=== PATIENT | female | born 1960 | race Caucasian/White ===

== ENCOUNTER 2017-04-22 12:05 | Emergency (ER) | payer MEDICAID, SELFPAY ==
[2017-04-22 15:08] VITALS: BMI 31.1
[2017-04-22 15:10] VITALS: BP 135/87; PULSE 113; RESP 20; TEMP 37.2; O2SAT 99
--- NOTE | 2017-04-22 15:18 | XR_ITS ---
XR chest 2V PA lateral chest Ordering Physician: Gasper Zhang MD Patient Age: 56 years: Female HISTORY: ITS.REASON: prod cough x4 days TECHNIQUE: PA and lateral chest radiograph COMPARISON : 01/16/[address] Ramsey on the afternoon hand years here No prominent findings. Minor observations At right chest I suspect there is a small wispy area of atelectasis and possible minor infiltrate seen but is seen just lateral to the right infrahilar area & projected over the anterior fourth rib.. Is a minor change since prior study... I cannot attribute to costochondral calcification since the ribs are not calcified. Suspect it does reflect a minor patchy area of infiltrate at the right middle lobe region. Clinical correlation required.. Heart is normal in size demetrius and mediastinal structures otherwise unremarkable. IMPRESSION : Suspect small patchy infiltrate extending laterally from the right infrahilar region. Likely minor RML infiltrate..
[2017-04-22 15:41] LABS: Strep Scrn Group A (Rapid) Negative (Negative)
[2017-04-22 16:42] VITALS: BP 150/100; PULSE 106; RESP 20; TEMP 37; O2SAT 98; BMI 31.1
--- NOTE | 2017-04-22 18:12 | [facility]H.EDGENADL ---
ED Disposition Clinical Impression: Upper respiratory infection Disposition: Home, Self-Care Condition on Discharge: Good Prescriptions: Azithromycin [Z-Lenin 250mg Tab] 250 mg PO UD DOSE PK #6 tab Benzonatate [Tessalon Perle 100mg Cap] 100 mg PO TID PRN #14 cap PRN Reason: Cough Referrals: Nathanael Dc MD [Primary Care Provider] - - Critical Care Critical Care Time: No Attestation: On 04/22/17, the high probability of a clinically significant, sudden or life threatening deterioration of the following system(s) required my full and direct attention, intervention and personal management. The time I documented below is in addition to time spent performing reported procedures but includes the following listed in this critical care notation. Medical Decision Making Vital Signs: 04/22/17 15:10 04/22/17 16:42 Temperature 99 F 98.6 F Temperature Source Oral Oral Pulse Rate [Left Radial] 113 H 106 H Respiratory Rate 20 20 Blood Pressure [Left Arm] 135/87 150/100 Blood Pressure Mean [Left Arm] 103 116 Blood Pressure Source [Left Arm] Automatic Cuff Automatic Cuff Blood Pressure Position [Left Arm] Sitting Supine 02 Sat by Pulse Oximetry 99 98 Oxygen Delivery Method Room Air Room Air Orders (Tests/Meds): ORDERS Category Date Time Status Chest XR 2 view (NOT portable) [XR chest 2V] Stat Exams 04/22/17 15:18 Taken Strep Screen Confirmation Stat Micro 04/22/17 15:15 Received - Perry Inquiry Pt receiving controlled substance: No General Adult HPI - General Chief complaint: Upper Respiratory Infection Stated complaint: Cough Congestion Mode of Arrival: Ambulatory Source of Information: Patient Limitations: No Limitations Description of Symptoms (Recalled from ER Triage Doc. by RN): cough, congestion, headache, burning in nose - History of Present Illness Onset (ago): day(s) (2) Location: face, chest Radiation: non-radiation Severity: moderate - Related Data Home Medications Medication Instructions Recorded Confirmed Levothyroxine Sodium [Synthroid 25 mcg PO DAILY 04/22/17 04/22/17 25mcg (0.025mg) tablet] Lisinopril [Zestril 5mg 5 mg PO DAILY 04/22/17 04/22/17 Tablet] Previous Rx's Medication Instructions Recorded Azithromycin [Z-Lenin 250mg Tab] 250 mg PO UD DOSE PK #6 tab 04/22/17 Benzonatate [Tessalon Perle 100mg 100 mg PO TID PRN #14 cap 04/22/17 Cap] Allergies Allergy/AdvReac Type Severity Reaction Status Date / Time codeine Allergy Intermediate I-RASH; Verified 04/22/17 16:53 NAUSEA/VOMITING chocolate flavor AdvReac Mild NA-NAUSEA/V Verified 04/22/17 16:53 [From CHOCOLATE (FOOD/DRUG)] OMITING From CHOCOLATE (FOOD/DRUG) AdvReac Mild NA-NAUSEA/V Uncoded 04/09/17 14:26 OMITING [facility] History Medical History: Denies:: Cancer, Diabetes Mellitus Type 1, Diabetes Mellitus Type 2, MRSA Other Surgeries: No: Pacemaker Amputation: No - *Social History Educational Level: Completed High School Smoking Status: Never smoker Alcohol Intake: never - Psychiatric History Expresses thoughts of harming self/others: None Suicide Plan Description: No Plan ROS Obtained: Yes All systems reviewed & no additional complaints except - ENT Reports nasal congestion, Reports nasal discharge - Respiratory Reports chest congestion, Reports cough Physical Exam - General General appearance: alert, in no apparent distress - Head Head exam: atraumatic, normocephalic, normal inspection - Eye Eye exam: Present: normal appearance, PERRL, EOMI - ENT ENT exam: Present: normal exam, normal oropharynx, mucous membranes moist, TM's normal bilaterally, normal external ear exam, other (boggy nasal mucosa without obstruction) - Neck Neck exam: Present: normal inspection, full ROM, trachea midline - Chest Chest inspection: Present: normal inspection, symmetric chest wall rise. Absent: tenderness - Respiratory Respiratory exam: Present: normal josé
--- NOTE | 2017-04-22 18:16 | ED_ITS ---
ED Disposition Clinical Impression: Upper respiratory infection Disposition: Home, Self-Care Condition on Discharge: Good Prescriptions: Azithromycin [Z-Lenin 250mg Tab] 250 mg PO UD DOSE PK #6 tab Benzonatate [Tessalon Perle 100mg Cap] 100 mg PO TID PRN #14 cap PRN Reason: Cough Referrals: Nathanael Dc MD [Primary Care Provider] - - Critical Care Critical Care Time: No Attestation: On 04/22/17, the high probability of a clinically significant, sudden or life threatening deterioration of the following system(s) required my full and direct attention, intervention and personal management. The time I documented below is in addition to time spent performing reported procedures but includes the following listed in this critical care notation. Medical Decision Making Vital Signs: 04/22/17 15:10 04/22/17 16:42 Temperature 99 F 98.6 F Temperature Source Oral Oral Pulse Rate [Left Radial] 113 H 106 H Respiratory Rate 20 20 Blood Pressure [Left Arm] 135/87 150/100 Blood Pressure Mean [Left Arm] 103 116 Blood Pressure Source [Left Arm] Automatic Cuff Automatic Cuff Blood Pressure Position [Left Arm] Sitting Supine 02 Sat by Pulse Oximetry 99 98 Oxygen Delivery Method Room Air Room Air Orders (Tests/Meds): ORDERS Category Date Time Status Chest XR 2 view (NOT portable) [XR chest 2V] Stat Exams 04/22/17 15:18 Taken Strep Screen Confirmation Stat Micro 04/22/17 15:15 Received - Perry Inquiry Pt receiving controlled substance: No General Adult HPI - General Chief complaint: Upper Respiratory Infection Stated complaint: Cough Congestion Mode of Arrival: Ambulatory Source of Information: Patient Limitations: No Limitations Description of Symptoms (Recalled from ER Triage Doc. by RN): cough, congestion , headache, burning in nose - History of Present Illness Onset (ago): day(s) (2) Location: face, chest Radiation: non-radiation Severity: moderate - Related Data Home Medications Medication Instructions Recorded Confirmed Levothyroxine Sodium [Synthroid 25 mcg PO DAILY 04/22/17 04/22/17 25mcg (0.025mg) tablet] Lisinopril [Zestril 5mg 5 mg PO DAILY 04/22/17 04/22/17 Tablet] Previous Rx's Medication Instructions Recorded Azithromycin [Z-Lenin 250mg Tab] 250 mg PO UD DOSE PK #6 tab 04/22/17 Benzonatate [Tessalon Perle 100mg 100 mg PO TID PRN #14 cap 04/22/17 Cap] Allergies Allergy/AdvReac Type Severity Reaction Status Date / Time codeine Allergy Intermediate I-RASH; Verified 04/22/17 16:53 NAUSEA/VOMITING chocolate flavor AdvReac Mild NA-NAUSEA/V Verified 04/22/17 16:53 [From CHOCOLATE (FOOD/DRUG)] OMITING From CHOCOLATE (FOOD/DRUG) AdvReac Mild NA-NAUSEA/V Uncoded 04/09/17 14:26 OMITING [facility] History Medical History: Denies:: Cancer, Diabetes Mellitus Type 1, Diabetes Mellitus Type 2, MRSA Other Surgeries: No: Pacemaker Amputation: No - *Social History Educational Level: Completed High School Smoking Status: Never smoker Alcohol Intake: never - Psychiatric History Expresses thoughts of harming self/others: None Suicide Plan Description: No Plan ROS Obtained: Yes All systems reviewed & no additional complaints except
[2017-04-22 18:26] VITALS: PULSE 100; RESP 20; TEMP 37; O2SAT 100
== END 2017-04-22 18:28 | disposition home or self-care (01) ==
PROVIDERS: Emergency Provider Family Medicine; Family Provider Family Medicine; PCP Family Medicine
DX: J06.9 Acute upper respiratory infection, unspecified; I10 Essential (primary) hypertension; Z88.6 Allergy status to analgesic agent
CPT/HCPCS: 71046; 87275; 87276; 87430; 99284

== ENCOUNTER → 2017-07-03 13:52 | Outpatient (CLI) | payer MEDICAID, SELFPAY ==
--- NOTE | 2017-07-03 13:54 | US_ITS ---
US thyroid HISTORY: ITS.REASON: ACQUIRED HYPOTHYROIDISM ORDERING PHYSICIAN: Letitia Dc MD PATIENT AGE: 56 years COMPARISON: 03/18/2012 FINDINGS: The right lobe is small 2 x 0.6 x 0.6 cm. There is a 7 mm hypoechoic nodule within the isthmus. The left lobe is 4.3 x 1.3 x 0.8 cm. There is a 3 mm hypoechoic nodule in the lower pole and an additional 4 mm hypoechoic nodule in the lower pole consistent with small cysts. IMPRESSION: 7 mm hypoechoic nodule in the isthmus unchanged with small right lobe of the thyroid gland. 2 small cystic lesions lower pole on the left.
== END ==
PROVIDERS: Family Provider Family Medicine; PCP Family Medicine; Visit Provider Family Medicine
DX: E03.9 Hypothyroidism, unspecified (principal)
CPT/HCPCS: 76536

== ENCOUNTER → 2017-11-04 09:03 | Outpatient (CLI) | payer MEDICAID, SELFPAY ==
--- NOTE | 2017-11-04 09:13 | MM_ITS ---
MM Dig screening mamm BI w/CAD CAD Screening COMPARISON: Digital mammograms with CAD 05/08/2012 and analog mammograms 02/16/2004 Indication: There is a history of breast cancer patient's maternal grandmother Fndings:: The breasts are composed primarily of fat with minimal scattered fiber glandular densities in each breast. There is no suspicious lesion in either breast and there are no suspicious microcalcifications. TECHNIQUE: Standard CC and MLO images were obtained. R2 CAD reviewed. IMPRESSION: Fatty type breast parenchyma with no suspicious lesion seen BI-RADS Category: 1 Negative RECOMMENDED FOLLOW-UP: 1YR - 1 YEAR FOLLOW-UP (A letter has been sent to the patient regarding results of the study.)
== END ==
PROVIDERS: Family Provider Family Medicine; PCP Family Medicine; Visit Provider Family Medicine
DX: Z12.31 Encounter for screening mammogram for malignant neoplasm of breast (principal)
CPT/HCPCS: 77067

== ENCOUNTER → 2020-06-01 08:05 | Outpatient (CLI) | payer OTHER, SELFPAY ==
--- NOTE | 2020-06-01 08:10 | MM_ITS ---
PROCEDURE: MM DIG SCREENING MAMM BI W/CAD Referring Doctor: Letitia Dc Patient Age:59Y CLINICAL INDICATION: SCREENING 59-year-old. No hormones. No new complaints. 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 R2 CAD reviewed. Bilateral digital breast tomosynthesis included. FINDINGS: Low-density breast pattern seen here provide for more optimal screening mammography Moderate generalized fatty replacement-with only minimal residual fibroglandular elements most evident towards lateral breast and upper outer quadrant No new dominant or suspicious mass. No suspicious calcifications. No significant appearing new findings Right breast-no new areas of concern stable right mammogram Left breast.- no new areas of significant concern. Very small nodular density with which appears to be central lucency far lateral left breast I believe was seen on previous studies and most compatible with benign intramammary lymph node. It was seen on previous MLO exams. Follow-up 1 year would be adequate . Bilateral follow-up 1 year be adequate but would be encouraged IMPRESSION: Stable mammogram with no new areas of significant concern. Bilateral follow-up 1 year recommended and encouraged BI-RAD Category: 2 Benign Finding(s) FOLLOW-UP: 1YR 1 Year Follow-up (A letter has been sent to the patient regarding results of the study.) Dictated by: Carlos Ramsey MD 06/07/2020 09:40 Carlos Ramsey MD in [place] 06/07/2020 09:40
--- NOTE | 2020-06-01 08:50 | XR_ITS ---
PROCEDURE: XR DEXA AXIAL SKELETON CLINICAL HISTORY: OSTEOPENIA COMPARISON: No exams were available for comparison FINDINGS: The right hip BMD is 0.599 with a T-score of -2.3. The left hip BMD is 0.611 with a T-score of -2.1. The lumbar spine BMD is 0.780 with a T-score of -2.4. IMPRESSION: This patient is considered osteopenic according to the World Health Organization criteria. Bone density is between 10 and 25 percent below young normal. Fracture risk is moderate. Treatment is advised. Based on these results a follow-up exam is recommended in 2 year. Dictated by: Jayden Sheridan MD 06/01/2020 18:31 Jayden Sheridan MD in [facility] 06/01/2020 20:09
== END ==
PROVIDERS: PCP Family Medicine; Visit Provider Family Medicine
DX: Z12.31 Encounter for screening mammogram for malignant neoplasm of breast (principal); M85.89 Other specified disorders of bone density and structure, multiple sites
CPT/HCPCS: 77063; 77067; 77080

== ENCOUNTER → 2020-06-22 15:00 | Outpatient (CLI) | payer OTHER, SELFPAY ==
--- NOTE | 2020-06-22 15:12 | XR_ITS ---
PROCEDURE: XR FOOT RT MIN 3V CLINICAL INDICATION: RT HEEL PAIN COMPARISON: CR [id number] XR foot LT min 3V from 11/07/2017 CR [id number] XR foot LT min 3V from 09/06/2018 FINDINGS: No fracture or dislocation. No lytic or blastic change. There is normal mineralization. The joint spaces are well-preserved. No significant degenerative/arthritic changes. No erosive changes evident. Other findings:Cortical thickening involves the medial aspect of the distal phalanx of the great toe. There is a small calcaneal spur. There is some mild soft tissue thickening at the plantar surface of the foot at the calcaneal area. No radiopaque foreign body. IMPRESSION: Soft tissue thickening along the plantar aspect of the calcaneus Cortical thickening involves the medial aspect of the distal phalanx of the great toe Otherwise negative Dictated by: Jayden Sheridan MD 06/22/2020 16:23 Jayden Sheridan MD in [facility] 06/22/2020 16:23
== END ==
PROVIDERS: PCP Family Medicine; Visit Provider Family Medicine
DX: M79.671 Pain in right foot (principal)
CPT/HCPCS: 73630

== ENCOUNTER 2021-04-04 00:18 | Emergency (ER) | payer OTHER, SELFPAY ==
[2021-04-04 00:19] VITALS: BP 149/89; PULSE 74; RESP 18; TEMP 36.6; O2SAT 96; BMI 30.9
--- NOTE | 2021-04-04 01:28 | CT_ITS ---
PROCEDURE INFORMATION: Exam: CT Abdomen And Pelvis With Contrast Exam date and time: 04/04/2021 1:28 AM Age: 60 years old Clinical indication: Nausea and vomiting; Additional info: N/v TECHNIQUE: Imaging protocol: Computed tomography of the abdomen and pelvis with contrast. Radiation optimization: All CT scans at this facility use at least one of these dose optimization techniques: automated exposure control; mA and/or kV adjustment per patient size (includes targeted exams where dose is matched to clinical indication); or iterative reconstruction. Contrast material: ISOVUE; Contrast volume: 75 ml; Contrast route: IV; COMPARISON: CT ABDOMEN PELVIS WO CON 05/05/2019 1:31 AM FINDINGS: Lungs: There are atelectatic changes noted at the lung bases. Liver: Diminished attenuation throughout the substance of the liver, suggesting hepatic steatosis. Borderline hepatomegaly. No evidence of mass. No intrahepatic biliary dilitation. Gallbladder and bile ducts: The gallbladder is surgically absent. No evidence of extrahepatic biliary dilatation. Pancreas: Normal. No ductal dilation. Spleen: Normal. No splenomegaly. Granulomatous calcification noted. Adrenal glands: Normal. No mass. Kidneys and ureters: Normal. No hydronephrosis. Stomach and bowel: Small hiatal hernia above the gastroesophageal junction. No obstruction. No mucosal thickening. Small bowel mesentery is normal. Appendix: The appendix is poorly visualized on this examination. There is no evidence of acute inflammatory process within the right lower quadrant. Intraperitoneal space: Unremarkable. No free air. No significant fluid collection. Vasculature: Unremarkable. No abdominal aortic aneurysm. There are calcified phleboliths within the pelvis. Lymph nodes: Unremarkable. No enlarged lymph nodes. Urinary bladder: Unremarkable as visualized. Reproductive: Hysterectomy has been performed. Bones/joints: Unremarkable. No acute fracture. Soft tissues: Unremarkable. IMPRESSION: No evidence of acute process within the abdomen or pelvis.
[2021-04-04 01:34] LABS: Basophils # 0.1 K/mm3 (0-0.2); Basophils % 0.4 % (0.1-2.0); Eosinophils # 0.1 K/mm3 (0.0-0.4); Eosinophils % 0.6 % (0.1-12.0); Hematocrit 47.6 % (37.0-47.0); Hemoglobin 16.4 g/dL (12.2-16.2); Lymphocytes # 1.7 K/mm3 (0.7-4.5); Lymphocytes % 11.4 % (10-50); Mean Corpuscular HGB Conc 34.6 g/dL (31.8-35.4); Mean Corpuscular Hemoglobin 31.6 pg (27.0-31.2); Mean Corpuscular Volume 91.5 fl (81-99); Mean Platelet Volume 9.4 fl (7.4-10.4); Monocytes # 0.7 K/mm3 (0.1-1.0); Monocytes % 4.6 % (1.7-9.3); Neutrophils # 12.3 K/mm3 (1.8-7.8); Platelet Count 186 K/mm3 (142-424); Red Cell Distribution Width 13.5 % (11.5-17.5); White Blood Count 14.8 K/mm3 (4.8-10.8)
[2021-04-04 01:39] LABS: Alanine Aminotransferase 69 U/L (12-78); Albumin Level 4.6 g/dl (3.5-5.0); Albumin/Globulin Ratio 1.6 (1.1-1.8); Alkaline Phosphatase 87 U/L (38-126); Amylase 102 U/L (30-110); Aspartate Amino Transferase 49 U/L (14-36); Bilirubin,Total 0.5 mg/dl (0.2-1.3); Blood Urea Nitrogen 12 mg/dl (7-17); Calcium 9.5 mg/dl (8.4-10.2); Carbon Dioxide 32 mmol/L (22.0-30.0); Chloride 100 mmol/L (98-107); Creatinine Clearance Estimated 132 mL/min (50-200); Estimated Glomerular Filt Rate 103 ml/min (>60); GFR (African American) 124 ML/MIN (>60); Globulin 2.9 g/dL (1.3-3.2); Glucose 160 mg/dl (74-100); Lipase 55 U/L (23-300); Sodium 139 mmol/L (136-145); Total Protein,Serum 7.5 g/dl (6.3-8.2)
[2021-04-04 01:45] LABS: C-Reactive Protein 5.7 mg/L (0-4)
[2021-04-04 01:58] LABS: Procalcitonin 0.061 ng/mL (0.0-2.0)
--- NOTE | 2021-04-04 02:21 | XR_ITS ---
PROCEDURE INFORMATION: Exam: XR Chest Exam date and time: 04/04/2021 2:21 AM Age: 60 years old Clinical indication: Other: N/v; Patient HX: No complaints of chest pain or SOA TECHNIQUE: Imaging protocol: XR of the chest. Views: 1 view. COMPARISON: CR CXR2V XR chest 2V 04/22/2017 3:29 PM FINDINGS: Lungs: Limited inspiration. Minimal atelectatic changes noted at the lung bases. Pleural spaces: Unremarkable. No pleural effusion. No pneumothorax. Heart/Mediastinum: Unremarkable. No cardiomegaly. Bones/joints: Unremarkable. IMPRESSION: Limited inspiration chest. Minimal atelectatic changes noted at the lung bases. No evidence of alveolar consolidation or congestive failure.
[2021-04-04 02:30] VITALS: BP 120/72; PULSE 78; RESP 14; O2SAT 97
[2021-04-04 02:35] LABS: Erythrocyte Sedimentation Rate 2 mm/hr (0-30)
--- NOTE | 2021-04-04 02:36 | HMH.EDNVD ---
ED Disposition Clinical Impression: Gastroenteritis Disposition: Home, Self-Care Condition on Discharge: Good Instructions: DI for Diarrhea and Traveler's Diarrhea -- Adult Additional Instructions: fluids and see pcp for follow up Prescriptions: ondansetron HCL [Zofran 4mg Tab] 4 mg PO TID #21 tab Transmission Status: Pending to [id number] Referrals: Letitia Dc MD [Primary Care Provider] - - Critical Care Critical Care Time: No Attestation: On 04/04/21, the high probability of a clinically significant, sudden or life threatening deterioration of the following system(s) required my full and direct attention, intervention and personal management. The time I documented below is in addition to time spent performing reported procedures but includes the following listed in this critical care notation. Medical Decision Making - Medical Records Medical records reviewed: Yes: I reviewed the patient's medical records. - Perry Inquiry Pt receiving controlled substance: No Vital Signs: 04/04/21 00:19 Temperature 97.9 F Temperature Source Oral Pulse Rate [Apical] 74 Respiratory Rate 18 Blood Pressure [Right Arm] 149/89 H Blood Pressure Mean [Right Arm] 109 Blood Pressure Source [Right Arm] Automatic Cuff Blood Pressure Position [Right Arm] Supine 02 Sat by Pulse Oximetry 96 Oxygen Delivery Method Room Air - Lab Data Lab results reviewed: Yes: I reviewed the patient's lab results. Lab Results 04/04/21 01:17: WBC 14.8 H, RBC 5.20, Hgb 16.4 H, Hct 47.6 H, MCV 91.5, MCH 31.6 H, MCHC 34.6, RDW 13.5, Plt Count 186, MPV 9.4, Neut % (Auto) 83.0 H, Lymph % (Auto) 11.4, Tucker % (Auto) 4.6, Eos % (Auto) 0.6, Baso % (Auto) 0.4, Neut # (Auto) 12.3 H, Lymph # (Auto) 1.7, Tucker # (Auto) 0.7, Eos # (Auto) 0.1, Baso # (Auto) 0.1 04/04/21 01:17: Sodium 139, Potassium 4.0, Chloride 100, Carbon Dioxide 32 H, Anion Gap 11.0, BUN 12, Creatinine 0.60, Estimated Creat Clear 132, Estimated GFR 103, Est GFR ( Amer) 124, Glucose 160 H, Calcium 9.5, Total Bilirubin 0.5, AST 49 H, ALT 69, Alkaline Phosphatase 87, C-Reactive Protein 5.7 H, Total Protein 7.5, Albumin 4.6, Globulin 2.9, Albumin/Globulin Ratio 1.6, Amylase 102, Lipase 55 04/04/21 01:17: ESR 2 04/04/21 01:17: Procalcitonin 0.061 04/04/21 02:35: Urine Color Yellow, Urine Appearance Clear, Urine pH 7.5, Ur Specific [place] 1.020, Urine Protein Negative, Urine Glucose (UA) Negative, Urine Ketones Trace, Urine Blood Negative, Urine Nitrate Negative, Urine Bilirubin Negative, Urine Urobilinogen 0.2, Ur Leukocyte Esterase Negative, Urine WBC Occasional, Ur Squamous Epith Cells Occasional, Urine Bacteria 1+ Result diagrams: 04/04/21 01:17 04/04/21 01:17 Orders (Tests/Meds): ED MEDICATIONS Generic Name Dose Route Start Last Admin Trade Name Frealeena PRN Reason Stop Dose Admin Sodium Chloride 1,000 mls @ 999 mls/hr 04/04/21 01:30 04/04/21 01:32 Sod Chlor 0.9% 1000ml Bag IV 04/04/21 02:30 999 mls/hr .Q1H1M SHA Administration Sodium Chloride 8 ml 04/04/21 01:30 Sodium Chloride 0.9% 10ml Vial IV 05/04/21 01:29 NEEDED PRN dilute pepcid Discontinued Medications Generic Name Dose Route Start Last Admin Trade Name Freq PRN Reason Stop Dose Admin Famotidine 20 mg 04/04/21 01:30 04/04/21 01:32 Famotidine 20mg/2ml Vial IV 04/04/21 01:31 20 mg ONCE ONE Administration Iopamidol 75 ml 04/04/21 02:24 04/04/21 02:26 Iopamidol-370 (76%);100ml Bottle IV 04/04/21 02:25 75 ml ONCE ONE Administration Ketorolac Tromethamine 30 mg 04/04/21 01:30 04/04/21 01:32 Ketorolac 30mg/Ml Vial IV 04/04/21 01:31 30 mg ONCE ONE Administration Metoclopramide HCl 10 mg 04/04/21 01:30 04/04/21 01:32 Metoclopramide Hcl 10mg/2ml Vial IVP 04/04/21 01:31 10 mg ONCE ONE Administration Ondansetron HCl 4 mg 04/04/21 01:30 04/04/21 01:33 Ondansetron 4mg/2ml Vial IV 04/04/21 01:31 4 mg ONCE ONE Administrati
[2021-04-04 02:41] LABS: Microscopic, Urine URINE MICROSCOPIC (MICROSCOPIC)
[2021-04-04 03:00] LABS: Appearance,Urine CLEAR (Clear); Bilirubin,Urine Negative (Negative); Blood, Urine Negative (Negative); Color,Urine YELLOW (Yellow); Glucose,Urine (UA) Negative (Negative); Ketones,Urine TRACE (Negative); Leukocyte Esterase,Urine Negative (Negative); Nitrate,Urine Negative (Negative); PH,Urine 7.5 (5.0-8.5); Protein,Urine Negative (Negative); Urobilinogen,Urine 0.2 EU/dl (0.2)
[2021-04-04 03:12] LABS: Bacteria,Urine 1+ /lpf; Squamous Epithelial Cell,Urine Occasional #/hpf (0-5); WBC,Urine Occasional #/hpf (0-3)
[2021-04-04 03:38] VITALS: BP 149/89; PULSE 74; RESP 18; TEMP 36.6; O2SAT 96
== END 2021-04-04 03:52 | disposition home or self-care (01) ==
PROVIDERS: Emergency Provider Emergency Medicine; PCP Family Medicine
DX: K52.9 Noninfective gastroenteritis and colitis, unspecified (principal)
CPT/HCPCS: 71045; 74177; 80053; 81001; 82150; 83690; 84145; 85025; 85651; 86140; 96365; 96367; 99284; J2405; Q9967

== ENCOUNTER → 2021-08-01 12:11 | Outpatient (CLI) | payer OTHER, SELFPAY ==
--- NOTE | 2021-08-01 12:20 | XR_ITS ---
FINAL REPORT CLINICAL HISTORY: LT RIB PAIN..no trauma FINDINGS: LEFT RIBS WITH CHEST A single view of the chest with 3 views of the left ribs were obtained. There is no acute cardiopulmonary process. No pneumothorax is identified. No rib fracture identified. IMPRESSION: No acute fracture. No pneumothorax. Reviewed, Interpreted and Dictated by Pete Dorman MD Transcribed by Princess Luo Authenticated by Pete Dorman MD on 08/01/2021 02:13:14 PM [facility]
== END ==
PROVIDERS: PCP Family Medicine; Visit Provider Family Medicine
DX: R07.81 Pleurodynia (principal)
CPT/HCPCS: 71101

== ENCOUNTER 2021-09-06 21:17 | Emergency (ER) | payer OTHER, SELFPAY ==
[2021-09-06 21:18] VITALS: BP 176/89; PULSE 78; RESP 18; TEMP 36.9; O2SAT 98; BMI 30.9
[2021-09-06 21:26] VITALS: BMI 30.9
--- NOTE | 2021-09-06 21:26 | ECG_ITS ---
APPROVED REPORT Exam: Resting ECG HR:64 bpm ECG Measurements Heart Rate 64 AXES PA 159 P 50 QRSd 94 QRS 30 QT 403 T 37 QTc 413 Conclusion SINUS RHYTHM Late R wave progression BORDERLINE ECG UNCONFIRMED REPORT Electronically signed by : Deandre Elliott MD 09/07/2021 08:43:04
--- NOTE | 2021-09-06 21:30 | XR_ITS ---
PROCEDURE INFORMATION: Exam: XR Chest Exam date and time: 09/06/2021 10:30 PM Age: 60 years old Clinical indication: Other: Dizziness; Additional info: Dizzy TECHNIQUE: Imaging protocol: XR of the chest. Views: 2 views. COMPARISON: CR XR RIBS LT MIN 3V W CXR1V 08/01/2021 12:35 PM FINDINGS: Lungs: No consolidation. Pleural spaces: No significant pleural effusion. No pneumothorax. Heart/Mediastinum: No cardiomegaly. Bones/joints: No displaced fracture. Soft tissues: Unremarkable. Intraperitoneal space: Surgical clips within RIGHT upper quadrant. IMPRESSION: No definite acute cardiopulmonary disease.
[2021-09-06 21:48] LABS: Microscopic, Urine URINE MICROSCOPIC (MICROSCOPIC)
[2021-09-06 21:56] LABS: Appearance,Urine CLEAR (Clear); Bilirubin,Urine Negative (Negative); Blood, Urine 2+ (Negative); Color,Urine YELLOW (Yellow); Glucose,Urine (UA) Negative (Negative); Ketones,Urine Negative (Negative); Leukocyte Esterase,Urine TRACE (Negative); Nitrate,Urine Negative (Negative); PH,Urine 6.5 (5.0-8.5); Protein,Urine Negative (Negative); Specific Gravity, Urine <= 1.005 (1.005-1.030); Urobilinogen,Urine 0.2 EU/dl (0.2)
[2021-09-06 22:08] LABS: Bacteria,Urine 1+ /lpf
[2021-09-06 22:40] LABS: Basophils # 0.2 K/mm3 (0-0.2); Basophils % 2.3 % (0.1-2.0); Eosinophils # 0.1 K/mm3 (0.0-0.4); Eosinophils % 1.6 % (0.1-12.0); Hematocrit 45.5 % (37.0-47.0); Hemoglobin 15.5 g/dL (12.2-16.2); Lymphocytes # 1.7 K/mm3 (0.7-4.5); Lymphocytes % 23.7 % (10-50); Mean Corpuscular HGB Conc 34.1 g/dL (31.8-35.4); Mean Corpuscular Hemoglobin 31.5 pg (27.0-31.2); Mean Corpuscular Volume 92.5 fl (81-99); Mean Platelet Volume 9.8 fl (7.4-10.4); Monocytes # 0.3 K/mm3 (0.1-1.0); Monocytes % 3.9 % (1.7-9.3); Neutrophils # 4.9 K/mm3 (1.8-7.8); Neutrophils % 68.5 % (37.0-80.0); Platelet Count 160 K/mm3 (142-424); Red Blood Count 4.92 M/mm3 (4.20-5.40); White Blood Count 7.1 K/mm3 (4.8-10.8)
[2021-09-06 23:00] LABS: Alanine Aminotransferase 51 U/L (12-78); Albumin Level 4.3 g/dl (3.5-5.0); Albumin/Globulin Ratio 1.6 (1.1-1.8); Alkaline Phosphatase 66 U/L (38-126); Anion Gap 9.7 mEq/L (5-15); Aspartate Amino Transferase 39 U/L (14-36); Bilirubin,Total 0.3 mg/dl (0.2-1.3); Blood Urea Nitrogen 16 mg/dl (7-17); Calcium 9.5 mg/dl (8.4-10.2); Carbon Dioxide 31 mmol/L (22.0-30.0); Chloride 104 mmol/L (98-107); Creatinine Clearance Estimated 113 mL/min (50-200); Estimated Glomerular Filt Rate 86 ml/min (>60); GFR (African American) 104 ML/MIN (>60); Globulin 2.7 g/dL (1.3-3.2); Glucose 155 mg/dl (74-100); Potassium 3.7 mmoL/L (3.5-5.1); Sodium 141 mmol/L (136-145)
[2021-09-06 23:05] LABS: C-Reactive Protein 10.4 mg/L (0-4); Erythrocyte Sedimentation Rate 6 mm/hr (0-30)
--- NOTE | 2021-09-06 23:05 | HMH.EDDIZZ ---
ED Disposition Clinical Impression: Burn due to hot object Benign paroxysmal positional vertigo Qualifiers: Laterality: unspecified laterality Qualified Code(s): H81.10 - Benign paroxysmal vertigo, unspecified ear Disposition: Home, Self-Care Condition on Discharge: Good Instructions: Dizziness, Nonvertigo, DI for [place] Additional Instructions: use meds and call pcp for follow up Prescriptions: Meclizine HCl [Antivert 25mg tablet] 25 mg PO TID #10 tab Transmission Status: Pending to [id number] Referrals: Letitia Dc MD [Primary Care Provider] - - Critical Care Critical Care Time: No Attestation: On 09/06/21, the high probability of a clinically significant, sudden or life threatening deterioration of the following system(s) required my full and direct attention, intervention and personal management. The time I documented below is in addition to time spent performing reported procedures but includes the following listed in this critical care notation. Medical Decision Making - Medical Records Medical records reviewed: Yes: I reviewed the patient's medical records. - Perry Inquiry Pt receiving controlled substance: No Vital Signs: 09/06/21 21:18 09/06/21 23:17 Temperature 98.4 F 98.4 F Temperature Source Oral Oral Pulse Rate 71 Pulse Rate [Right] 78 Respiratory Rate 18 18 Blood Pressure 144/74 H Blood Pressure [Right Arm] 176/89 H Blood Pressure Mean [Right Arm] 118 02 Sat by Pulse Oximetry 98 - Lab Data Lab results reviewed: Yes: I reviewed the patient's lab results. Lab Results 09/06/21 21:40: Urine Color Yellow, Urine Appearance Clear, Urine pH 6.5, Ur Specific [place] <= 1.005, Urine Protein Negative, Urine Glucose (UA) Negative, Urine Ketones Negative, Urine Blood 2+, Urine Nitrate Negative, Urine Bilirubin Negative, Urine Urobilinogen 0.2, Ur Leukocyte Esterase Trace, Urine RBC 5-10, Urine WBC 5-10, Ur Squamous Epith Cells 3-5, Urine Bacteria 1+ 09/06/21 22:32: WBC 7.1, RBC 4.92, Hgb 15.5, Hct 45.5, MCV 92.5, MCH 31.5 H, MCHC 34.1, RDW 14.0, Plt Count 160, MPV 9.8, Neut % (Auto) 68.5, Lymph % (Auto) 23.7, Cecil % (Auto) 3.9, Eos % (Auto) 1.6, Baso % (Auto) 2.3 H, Neut # (Auto) 4.9, Lymph # (Auto) 1.7, Cecil # (Auto) 0.3, Eos # (Auto) 0.1, Baso # (Auto) 0.2, ESR 6 09/06/21 22:32: Sodium 141, Potassium 3.7, Chloride 104, Carbon Dioxide 31 H, Anion Gap 9.7, BUN 16, Creatinine 0.70, Estimated Creat Clear 113, Estimated GFR 86, Est GFR ( Amer) 104, Glucose 155 H, Calcium 9.5, Total Bilirubin 0.3, AST 39 H, ALT 51, Alkaline Phosphatase 66, Troponin I < 0.01, C-Reactive Protein 10.4 H, Total Protein 7.0, Albumin 4.3, Globulin 2.7, Albumin/Globulin Ratio 1.6, Procalcitonin 0.073 Result diagrams: 09/06/21 22:32 09/06/21 22:32 Orders (Tests/Meds): ED MEDICATIONS Generic Name Dose Route Start Last Admin Trade Name Freq PRN Reason Stop Dose Admin Sodium Chloride 1,000 mls @ 999 mls/hr 09/06/21 21:45 09/06/21 22:02 Sod Chlor 0.9% 1000ml Bag IV 09/06/21 22:45 999 mls/hr .Q1H1M SHA Administration Discontinued Medications Generic Name Dose Route Start Last Admin Trade Name Freq PRN Reason Stop Dose Admin Meclizine HCl 25 mg 09/06/21 23:14 09/06/21 23:19 Meclizine 25mg Tablet PO 09/06/21 23:15 25 mg ONCE ONE Administration Methylprednisolone Sodium Succinate 125 mg 09/06/21 23:14 09/06/21 23:19 Methylprednisolone Sod Succ 125mg Vial IV 09/06/21 23:15 125 mg ONCE ONE Administration Silver Sulfadiazine 1 gm 09/06/21 23:14 09/06/21 23:18 Silver Sulfadiazine Cream 400gm TP 09/06/21 23:15 1 gm ONCE ONE Administration ORDERS Category Date Time Status Chest XR 2 view (NOT portable) [XR chest 2V] Stat Exams 09/06/21 21:30 Taken Troponin I Q3H Lab 09/07/21 00:45 Ordered Troponin I Q3H Lab 09/07/21 03:45 Ordered Urine Culture Stat Micro 09/06/21 21:40 Received - Radiology Data #1 Image(s): Chest Image
[2021-09-06 23:17] VITALS: BP 144/74; PULSE 71; RESP 18; TEMP 36.9; O2SAT 98
[2021-09-06 23:17] LABS: Troponin I < 0.01 ng/ml (0.00-0.034)
[2021-09-06 23:19] LABS: Procalcitonin 0.073 ng/mL (0.0-2.0)
== END 2021-09-06 23:37 | disposition home or self-care (01) ==
PROVIDERS: Emergency Provider Emergency Medicine; PCP Family Medicine
DX: T22.211A Burn of second degree of right forearm, initial encounter (principal); X08.8XXA Exposure to other specified smoke, fire and flames, initial encounter; Y92.019 Unspecified place in single-family (private) house as the place of occurrence of the external cause
CPT/HCPCS: 71046; 80053; 81001; 84145; 84484; 85025; 85651; 86140; 87086; 93005; 96360; 96375; 99284

== ENCOUNTER 2021-11-07 19:45 | Emergency (ER) | payer OTHER, SELFPAY ==
[2021-11-07 19:55] VITALS: BP 158/91; PULSE 87; RESP 19; TEMP 37; O2SAT 96; BMI 32.9
--- NOTE | 2021-11-07 20:08 | HMH.EDUTC ---
[facility] Disposition Clinical Impression: Cellulitis Qualifiers: Site of cellulitis: unspecified site Qualified Code(s): L03.90 - Cellulitis, unspecified Disposition: Home, Self-Care Condition on Discharge: Good Instructions: Cellulitis, Cephalexin, Mupirocin Additional Instructions: *Start antibiotic(s) immediately and be sure to take as ordered for the FULL length of time although you may be feeling better or start to see improvement in the next 24-48 hours *Monitor closely. Outlined redness so that you can monitor easier. Follow up immediately for new or worsening symptoms including but not limited to redness, swelling, streaking from site fever or chills. *Warm compress 15 minutes 3-4 times day Apply Mupirocin directly to the bites *Never squeeze or pop these on your own. Seek immediate medical attention next time this occurs *Monitor Temp. Tylenol every 4 hours as needed and ibuprofen every 6 hours as needed (as long as your primary care doctor has told you that it is ok to take both. For fever, aches, pain. ER if no less that 101 despite Tylenol and ibuprofen Make sure to Follow up with your family doctor/primary care physician in the next 48-72 hours if no improvement and immediately if any worsening of symptoms Straight to ER if any life threatening symptoms Prescriptions: cephALEXin [Cephalexin 500mg Tab] 500 mg PO Q6H 7 Days #28 tab Transmission Status: [facility] to [id number] Mupirocin Calcium [Mupirocin 2% Cream 15gm] 1 applicatio TP TID 10 Days #15 gm Transmission [facility]: [id number] Referrals: Letitia Dc MD [Primary Care Provider] - Time of Disposition: 20:19 Medical Decision Making - Perry Inquiry Pt receiving controlled substance: No Perry was queried for this patient: No Vital Signs: 11/07/21 19:55 Temperature 98.6 F Temperature Source Oral Pulse Rate [Left Brachial] 87 Respiratory Rate 19 Blood Pressure [Left Arm] 158/91 H Blood Pressure Mean [Left Arm] 113 Blood Pressure Source [Left Arm] Automatic Cuff Blood Pressure Position [Left Arm] Sitting 02 Sat by Pulse Oximetry 96 Oxygen Delivery Method Room Air Orders (Tests/Meds): ED MEDICATIONS Discontinued Medications Generic Name Dose Route Start Last Admin Trade Name Freq PRN Reason Stop Dose Admin Cephalexin HCl 500 mg 11/07/21 20:17 Cephalexin 500mg Capsule PO 11/07/21 20:18 ONCE ONE [facility] HPI - General Stated complaint: possible UTC Time Seen by Provider: 11/07/21 20:00 Mode of Arrival: Ambulatory Source of Information: Patient, Spouse Limitations: No Limitations Description of Symptoms (Recalled from Triage Doc. 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 States that she was worried it was getting infected when it looked red and the redness was starting to spread - Related Data Home Medications Medication Instructions Recorded Confirmed lisinopriL [Zestril 5mg 5 mg PO DAILY 04/22/17 09/06/21 Tablet] Pravastatin Sodium [Pravachol] 20 mg PO HS 11/07/17 09/06/21 Omeprazole [Omeprazole 40mg 40 mg PO DAILY 09/06/18 09/06/21 Capsule] Alendronate Sodium [Alendronate 35 mg PO DAILY 04/04/21 09/06/21 35mg Tablet] Levothyroxine Sodium [Euthyrox] 50 mcg PO DAILY 04/04/21 09/06/21 Previous Rx's Medication Instructions Recorded Meclizine HCl [Antivert 25mg 25 mg PO TID #10 tab 09/06/21 tablet] Mupirocin Calcium [Mupirocin 2% 1 applicatio TP TID 10 Days #15 gm 11/07/21 Cream
[2021-11-07 20:22] VITALS: BP 158/91; PULSE 87; RESP 19; TEMP 37; O2SAT 96
== END 2021-11-07 20:30 | disposition home or self-care (01) ==
PROVIDERS: Emergency Provider Nurse Practitioner; PCP Family Medicine
DX: L03.115 Cellulitis of right lower limb (principal)
CPT/HCPCS: 99212; G0463

== ENCOUNTER → 2022-04-30 16:36 | Outpatient (CLI) | payer OTHER, SELFPAY ==
--- NOTE | 2022-04-30 16:41 | MM_ITS ---
PROCEDURE INFORMATION: Exam: MG Bilateral Screening 3D Mammography Exam date and time: 04/30/2022 4:35 PM Age: 61 years old Clinical indication: Screening examination. Her maternal grandmother had breast cancer. TECHNIQUE: Imaging protocol: Bilateral Screening tomosynthesis and 2D mammography including computer-aided detection (CAD) when performed. COMPARISON: 1. MG MM DIG SCREENING MAMM BI W/CAD 06/01/2020 8:21 AM 2. MG SCBI MM Dig screening mamm BI w/CAD 11/04/2017 9:23 AM 3. MG DMSB DIGITAL MAMM-SCREEN BILATERAL 05/08/2012 4:17 PM 4. MG DIGMAMMS MAMMOGRAM SCREEN-[employer] N/C 02/16/2004 4:11 PM FINDINGS: MAMMOGRAPHY: Breast composition: The breasts are almost entirely fatty. Mass: No suspicious mass. Architectural distortion: None. Calcifications: No suspicious calcifications. Asymmetric density: None. Skin thickening: None. Axillary adenopathy: None. IMPRESSION: No mammographic evidence of malignancy. Annual screening is recommended unless otherwise clinically indicated. ASSESSMENT: BI-RADS Category 1: Negative
== END ==
PROVIDERS: PCP Family Medicine; Visit Provider Family Medicine
DX: Z12.31 Encounter for screening mammogram for malignant neoplasm of breast (principal)
CPT/HCPCS: 77063; 77067

== ENCOUNTER 2022-07-11 00:55 | Emergency (ER) | payer OTHER, SELFPAY ==
[2022-07-11 00:57] VITALS: BP 150/80; PULSE 66; RESP 16; TEMP 36.6; O2SAT 99; BMI 32.9
[2022-07-11 01:08] VITALS: BMI 32.9
[2022-07-11 01:24] LABS: Microscopic, Urine URINE MICROSCOPIC (MICROSCOPIC)
[2022-07-11 01:25] LABS: Appearance,Urine CLEAR (Clear); Bilirubin,Urine Negative (Negative); Blood, Urine Negative (Negative); Color,Urine YELLOW (Yellow); Glucose,Urine (UA) Negative (Negative); Ketones,Urine Negative (Negative); Leukocyte Esterase,Urine Negative (Negative); Nitrate,Urine Negative (Negative); PH,Urine 7.5 (5.0-8.5); Protein,Urine Negative (Negative); Urobilinogen,Urine 0.2 EU/dl (0.2)
[2022-07-11 01:33] LABS: Chloride 101 mmol/L (98-107); Potassium 3.8 mmoL/L (3.5-5.1); Sodium 141 mmol/L (136-145)
[2022-07-11 01:36] LABS: Alanine Aminotransferase 37 U/L (12-78); Albumin Level 4.6 g/dl (3.5-5.0); Albumin/Globulin Ratio 1.5 (1.1-1.8); Alkaline Phosphatase 70 U/L (38-126); Anion Gap 10.8 mEq/L (5-15); Aspartate Amino Transferase 34 U/L (14-36); Bilirubin,Total 0.5 mg/dl (0.2-1.3); Blood Urea Nitrogen 16 mg/dl (7-17); Carbon Dioxide 33 mmol/L (22.0-30.0); Creatinine Clearance Estimated 130 mL/min (50-200); Estimated Glomerular Filt Rate 102 ml/min (>60); GFR (African American) 124 ML/MIN (>60); Total Protein,Serum 7.6 g/dl (6.3-8.2)
[2022-07-11 01:37] LABS: Basophils # 0.1 K/mm3 (0-0.2); Basophils % 1.3 % (0.1-2.0); Calcium 8.9 mg/dl (8.4-10.2); Eosinophils # 0.1 K/mm3 (0.0-0.4); Eosinophils % 1.1 % (0.1-12.0); Glucose 126 mg/dl (74-100); Lymphocytes # 1.8 K/mm3 (0.7-4.5); Lymphocytes % 19.1 % (10-50); Mean Corpuscular Hemoglobin 30.5 pg (27.0-31.2); Mean Corpuscular Volume 89.5 fl (81-99); Mean Platelet Volume 9.9 fl (7.4-10.4); Monocytes # 0.5 K/mm3 (0.1-1.0); Monocytes % 5.6 % (1.7-9.3); Neutrophils # 6.9 K/mm3 (1.8-7.8); Neutrophils % 72.9 % (37.0-80.0); Platelet Count 199 K/mm3 (142-424); Red Blood Count 5.26 M/mm3 (4.20-5.40); Red Cell Distribution Width 13.6 % (11.5-17.5); White Blood Count 9.5 K/mm3 (4.8-10.8)
[2022-07-11 01:46] LABS: Amorphous Sediment,Urine 1+ /lpf; Bacteria,Urine Trace /lpf; Squamous Epithelial Cell,Urine Occasional #/hpf (0-5)
--- NOTE | 2022-07-11 01:56 | HMH.EDNVD ---
Discharge Plan Disposition Patient Disposition: Home, Self-Care Prescriptions Prescriptions: New ondansetron HCl 4 mg Tablet 4 mg PO Q8H PRN (Reason: Nausea) Qty: 20 0RF No Action omeprazole 40 MG capsule,delayed release(DR/EC) 40 mg PO DAILY mupirocin calcium 15 GM cream 1 applicatio TP TID 10 Days Qty: 15 0RF Rx Instructions: apply directly to bites cephalexin 500 MG tablet 500 mg PO Q6H 7 Days Qty: 28 0RF lisinopril 5 MG tablet 5 mg PO DAILY pravastatin [Pravachol] 20 MG tablet 20 mg PO HS alendronate 35 MG tablet 35 mg PO DAILY levothyroxine 50 MCG tablet 50 mcg PO DAILY meclizine 25 MG tablet 25 mg PO TID Qty: 10 0RF Referrals Follow up/Referrals: Letitia Dc MD [Primary Care Provider] - See instructions Clinical Impressions Clinical Impression: Gastroenteritis Instructions Patient Instructions: DI for Nausea -- Adult Discharge ED Provider: Mitchell (ED)Sebastien Nausea/Vomiting/Diarrhea HPI General Chief complaint: Nausea/Vomiting/Diarrhea Stated complaint: Vomiting Time Seen by Provider: 07/11/22 01:56 Mode of Arrival: Wheelchair Source of Information: Patient and Medical Record Limitations: No Limitations Description of Symptoms (Recalled from ER Triage Doc. by RN): pt c/o n/v/d that started 20 mins prior to arrival. pt denies any abd pain History of Present Illness HPI Narrative: vomiting tonight w/o some diarrhea complaint: nausea, vomiting and diarrhea Onset (ago): hour(s) Associated Abdominal Pain: No Associated symptoms: denies other symptoms Related Data Home Medications Medication Instructions Recorded Confirmed lisinopril 5 mg tablet 5 mg PO DAILY Supplement 04/22/17 09/06/21 pravastatin 20 mg tablet 20 mg PO HS Cholesterol 11/07/17 09/06/21 (Pravachol) omeprazole 40 mg capsule,delayed 40 mg PO DAILY GERD 09/06/18 09/06/21 release alendronate 35 mg tablet 35 mg PO DAILY gout 04/04/21 09/06/21 levothyroxine 50 mcg tablet 50 mcg PO DAILY hypothyroid 04/04/21 09/06/21 Previous Rx's Medication Instructions Recorded meclizine 25 mg tablet 25 mg PO TID #10 tabs 09/06/21 cephalexin 500 mg tablet 500 mg PO Q6H 7 days #28 tabs 11/07/21 mupirocin calcium 2 % topical cream 1 applicatio topical TID 10 days 11/07/21 ##15 ondansetron HCl 4 mg tablet 4 mg PO Q8H PRN Nausea #20 tabs 07/11/22 Allergies Allergy/AdvReac Type Severity Reaction Status Date / Time codeine Allergy Intermediate I-RASH; Verified 05/05/19 00:53 NAUSEA/VOMITING chocolate flavor AdvReac Mild NA-NAUSEA/V Verified 05/05/19 00:53 [From CHOCOLATE (FOOD/DRUG)] OMITING From CHOCOLATE (FOOD/DRUG) AdvReac Mild NA-NAUSEA/V Uncoded 04/09/17 14:26 OMITING PFSH PFSH Disclaimer: The information contained in this section may have been updated after the patient was seen, as this information can be updated by other users. Social History Smoking Status: Never smoker second hand exposure: No alcohol intake: never current occupational status: other Travel in the last 8 weeks: None housing: house caffeine: No ROS Obtained: Yes All systems reviewed & no additional complaints except as documented Physical Exam General General appearance: alert Head Head exam: normocephalic Eye Eye exam: Present PERRL and EOMI ENT ENT exam: Present mucous membranes moist Neck Neck exam: Present trachea midline Respiratory Respiratory exam: Absent respiratory distress Cardiovascular Cardiovascular exam: Present regular rate Abdominal Exam Abdominal exam: Present soft; Absent tenderness Extremities Exam Extremities exam: Present full ROM Neurological Exam Neurological exam: Present alert, oriented X3 and CN II-XII intact; Absent motor sensory deficit Psychiatric Psychiatric exam: Present normal affect Skin Skin exam: Absent rash Medical Decision Making Medical Records Medical records reviewed: Yes I reviewed the
[2022-07-11 02:08] VITALS: BP 145/70; PULSE 65; RESP 18; TEMP 36.6; O2SAT 99
== END 2022-07-11 02:15 | disposition home or self-care (01) ==
PROVIDERS: Emergency Provider Emergency Medicine; PCP Family Medicine
DX: K52.9 Noninfective gastroenteritis and colitis, unspecified (principal); R11.2 Nausea with vomiting, unspecified
CPT/HCPCS: 80053; 81001; 85025; 96360; 96374; 96375; 99284; J2405

== ENCOUNTER 2023-01-06 16:52 | Emergency (ER) | payer OTHER, SELFPAY ==
[2023-01-06 17:06] VITALS: BP 167/90; PULSE 74; RESP 20; TEMP 36.4; O2SAT 96; BMI 33.8
--- NOTE | 2023-01-06 17:06 | XR_ITS ---
PROCEDURE INFORMATION: Exam: XR Chest Exam date and time: 01/06/2023 5:33 PM Age: 62 years old Clinical indication: Dyspnea TECHNIQUE: Imaging protocol: Radiologic exam of the chest. Views: 1 view. COMPARISON: CR XR CHEST 2V 09/06/2021 10:30 PM FINDINGS: Lungs: Normal. Pleural spaces: Normal No pleural effusion. No pneumothorax. Heart/Mediastinum: Normal. No cardiomegaly. Bones/joints: Unremarkable. IMPRESSION: No acute findings.
--- NOTE | 2023-01-06 17:07 | HMH.EDGENADL ---
Discharge Plan Disposition Patient Disposition: Home, Self-Care Prescriptions Prescriptions: New ondansetron 4 mg tablet,disintegrating 4 mg PO Q6H PRN (Reason: nausea and vomiting) 5 Days Qty: 20 0RF No Action pravastatin 20 mg tablet See Rx Instructions .ROUTE .COMPLEX Qty: 90 0RF Dose Instruction: Take 1 tablet by mouth once daily Rx Instructions: Take 1 tablet by mouth once daily omeprazole 40 MG capsule,delayed release(DR/EC) 40 mg PO DAILY mupirocin calcium 15 GM cream 1 applicatio TP TID 10 Days Qty: 15 0RF Rx Instructions: apply directly to bites cephalexin 500 MG tablet 500 mg PO Q6H 7 Days Qty: 28 0RF ondansetron HCl 4 mg Tablet 4 mg PO Q8H PRN (Reason: Nausea) Qty: 20 0RF lisinopril 5 MG tablet 5 mg PO DAILY alendronate 35 MG tablet 35 mg PO DAILY levothyroxine 50 MCG tablet 50 mcg PO DAILY meclizine 25 MG tablet 25 mg PO TID Qty: 10 0RF Referrals Follow up/Referrals: Letitia Dc MD [Primary Care Provider] - See instructions Activity Restrictions/Add. Instructions Additional Instructions/Restrictions: Return with any worsening shortness of breath inability to tolerate anything by mouth or other concerns. Clinical Impressions Clinical Impression: Acute viral syndrome, Cough, Nausea & vomiting Discharge ED Provider: Gurjit Deras General Adult HPI General Chief complaint: Weakness Stated complaint: weakness,taken cold med that expored Time Seen by Provider: 01/06/23 16:59 History of Present Illness HPI narrative: Patient is a 62-year-old female who is deaf and is accompanied by her who interprets for her. He states she has had a mild cough and some congestion over the last few days and today had an episode of nausea and vomiting and states that she was little bit more sleepy than normal after taking an [id number] medication which includes action with dextromethorphan, Tylenol, and chlorpheniramine. The chlorpheniramine component of the medication was 2 mg and she had 2 of these tablets around noon. No significant change in mental status or focal neurologic deficits from historical standpoint. was primarily concerned that she took too much of the medication and was concerned that it was an medication. Related Data Home Medications Medication Instructions Recorded Confirmed lisinopril 5 mg tablet 5 mg PO DAILY Supplement 04/22/17 09/06/21 omeprazole 40 mg capsule,delayed 40 mg PO DAILY GERD 09/06/18 09/06/21 release alendronate 35 mg tablet 35 mg PO DAILY gout 04/04/21 09/06/21 levothyroxine 50 mcg tablet 50 mcg PO DAILY hypothyroid 04/04/21 09/06/21 Previous Rx's Medication Instructions Recorded meclizine 25 mg tablet 25 mg PO TID #10 tabs 09/06/21 cephalexin 500 mg tablet 500 mg PO Q6H 7 days #28 tabs 11/07/21 mupirocin calcium 2 % topical cream 1 applicatio topical TID 10 days 11/07/21 ##15 ondansetron HCl 4 mg tablet 4 mg PO Q8H PRN Nausea #20 tabs 07/11/22 pravastatin 20 mg tablet See Rx Instructions .Route 07/13/22 .COMPLEX #90 tabs ondansetron 4 mg disintegrating 4 mg PO Q6H PRN nausea and 01/06/23 tablet vomiting 5 days #20 tabs Allergies Allergy/AdvReac Type Severity Reaction Status Date / Time codeine Allergy Intermediate I-RASH; Verified 05/05/19 00:53 NAUSEA/VOMITING chocolate flavor AdvReac Mild NA-NAUSEA/V Verified 05/05/19 00:53 [From CHOCOLATE (FOOD/DRUG)] OMITING From CHOCOLATE (FOOD/DRUG) AdvReac Mild NA-NAUSEA/V Uncoded 04/09/17 14:26 OMITING PFSH PFSH Disclaimer: The information contained in this section may have been updated after the patient was seen, as this information can be updated by other users. Social History Smoking Status: Never smoker second hand exposure: No alcohol intake: never current occupational status: other Travel in the last 8 weeks: None housing: house caffeine: No ROS Obta
[2023-01-06 17:30] VITALS: BP 133/75; PULSE 65; RESP 20; O2SAT 97
[2023-01-06 17:31] LABS: Coronavirus 19, PCR Not Detected (NotDetected); Influenza A, PCR Not Detected (NotDetected); Influenza B, PCR Not Detected (NotDetected)
[2023-01-06 17:32] LABS: Basophils # 0.1 K/mm3 (0-0.2); Basophils % 0.6 % (0.1-2.0); Eosinophils # 0.1 K/mm3 (0.0-0.4); Eosinophils % 1.7 % (0.1-12.0); Hematocrit 49.6 % (37.0-47.0); Hemoglobin 15.9 g/dL (12.2-16.2); Lymphocytes # 1.7 K/mm3 (0.7-4.5); Lymphocytes % 21.5 % (10-50); Mean Corpuscular HGB Conc 32.1 g/dL (31.8-35.4); Mean Corpuscular Hemoglobin 29.4 pg (27.0-31.2); Mean Corpuscular Volume 91.9 fl (81-99); Mean Platelet Volume 9.1 fl (7.4-10.4); Monocytes # 0.4 K/mm3 (0.1-1.0); Monocytes % 5.4 % (1.7-9.3); Neutrophils # 5.7 K/mm3 (1.8-7.8); Neutrophils % 70.8 % (37.0-80.0); Platelet Count 177 K/mm3 (142-424); Red Blood Count 5.39 M/mm3 (4.20-5.40); Red Cell Distribution Width 13.6 % (11.5-17.5); White Blood Count 8.1 K/mm3 (4.8-10.8)
[2023-01-06 17:39] LABS: Alanine Aminotransferase 46 U/L (12-78); Albumin Level 4.2 g/dl (3.5-5.0); Albumin/Globulin Ratio 1.3 (1.1-1.8); Alkaline Phosphatase 86 U/L (38-126); Anion Gap 12.1 mEq/L (5-15); Aspartate Amino Transferase 45 U/L (14-36); Bilirubin,Total 0.2 mg/dl (0.2-1.3); Blood Urea Nitrogen 12 mg/dl (7-17); Calcium 9.1 mg/dl (8.4-10.2); Carbon Dioxide 33 mmol/L (22.0-30.0); Chloride 101 mmol/L (98-107); Creatinine Clearance Estimated 132 mL/min (50-200); Estimated Glomerular Filt Rate 102 ml/min (>60); GFR (African American) 123 ML/MIN (>60); Globulin 3.3 g/dL (1.3-3.2); Glucose 155 mg/dl (74-100); Potassium 4.1 mmoL/L (3.5-5.1); Sodium 142 mmol/L (136-145); Total Protein,Serum 7.5 g/dl (6.3-8.2)
[2023-01-06 18:00] VITALS: BP 152/82; PULSE 70; RESP 20; O2SAT 96
[2023-01-06 18:30] VITALS: BP 135/75; PULSE 57; O2SAT 95
--- NOTE | 2023-01-06 18:35 | PC.NURSE ---
rounded on pt no needs at this time at bs
[2023-01-06 20:12] VITALS: BP 135/75; PULSE 58; RESP 18; TEMP 36.6; O2SAT 96
== END 2023-01-06 20:13 | disposition home or self-care (01) ==
PROVIDERS: Emergency Provider Student in an Organized Health Care Education/Training Program; PCP Family Medicine
DX: R11.2 Nausea with vomiting, unspecified (principal); R05.9 Cough, unspecified; B34.9 Viral infection, unspecified
CPT/HCPCS: 71045; 80053; 85025; 87636; 96361; 96374; 99285; J2405

== ENCOUNTER → 2023-03-21 11:32 | Outpatient (CLI) | payer OTHER, SELFPAY ==
[2023-03-21 11:56] LABS: Influenza A, PCR Not Detected (NotDetected); Influenza B, PCR Not Detected (NotDetected)
[2023-03-21 14:25] LABS: Coronavirus 19, PCR Detected (NotDetected)
== END ==
PROVIDERS: PCP Family Medicine; Visit Provider Physician Assistant
DX: Z20.822 Contact with and (suspected) exposure to COVID-19 (principal); U07.1 COVID-19
CPT/HCPCS: 36415; 87636

== ENCOUNTER 2023-05-20 12:16 | Outpatient (CLI) | payer OTHER, SELFPAY ==
--- NOTE | 2023-05-20 12:20 | XR_ITS ---
FINAL REPORT CLINICAL HISTORY: LT FOOT PAIN FINDINGS: LEFT FOOT Three views of the left foot demonstrate no acute fracture or dislocation. There are mild degenerative changes of the midfoot. Mild calcaneal spurring is noted. The visualized joint spaces are normally aligned. The soft tissues are unremarkable. IMPRESSION: No acute bony abnormality. Reviewed, Interpreted and Dictated by Letitia Garcia MD Transcribed by Rach Tee Authenticated and [facility]
== END 2023-05-20 23:59 ==
LOC: RAD 12:17
PROVIDERS: PCP Family Medicine; Visit Provider Family Medicine
DX: M79.672 Pain in left foot (principal)
CPT/HCPCS: 73630

== ENCOUNTER 2023-06-11 09:59 | Outpatient (CLI) | payer OTHER, SELFPAY ==
--- NOTE | 2023-06-11 10:04 | XR_ITS ---
FINAL REPORT CLINICAL HISTORY: Foot Pain pain in 2nd -3rd toe area COMPARISON: 05/20/2023 FINDINGS: AP, oblique and lateral views of the left foot were obtained. There is no prior exam for comparison. There is no acute fracture or dislocation. The joint spaces are preserved. Soft tissues are normal. A moderate-sized plantar calcaneal spur is present. IMPRESSION: No acute osseous abnormality of the left foot. Reviewed, Interpreted and Dictated by Pete Dorman MD Transcribed by Elizabeth Vaughan Authenticated and [facility]
--- NOTE | 2023-06-11 10:04 | XR_ITS ---
FINAL REPORT CLINICAL HISTORY: Foot Pain COMPARISON: 06/22/2020 FINDINGS: AP, oblique and lateral views of the right foot were obtained. There is a sclerotic focus in the medial aspect of the distal phalanx, which was also present on the prior foot film of 2020 and unchanged since that time. There is no acute fracture or dislocation. The joint spaces are preserved. Soft tissues are normal. Note is made of an accessory navicular. There is a small plantar calcaneal spur, which is slightly larger than noted on the prior exam. IMPRESSION: No acute osseous abnormality of the right foot. Small plantar calcaneal spur, slightly larger than noted in 2020. Reviewed, Interpreted and Dictated by Pete Dorman MD Transcribed by Elizabeth Vaughan Authenticated and [facility]
== END 2023-06-11 23:59 ==
PROVIDERS: PCP Family Medicine; Visit Provider Nurse Practitioner
DX: M79.672 Pain in left foot (principal); M79.671 Pain in right foot
CPT/HCPCS: 73630

== ENCOUNTER 2023-08-29 12:53 | Outpatient (CLI) | payer OTHER, SELFPAY ==
--- NOTE | 2023-08-29 13:00 | MM_ITS ---
PROCEDURE INFORMATION: Exam: MG Bilateral Screening 3D Mammography Exam date and time: 08/29/2023 1:13 PM Age: 62 years old Clinical indication: Screening examination TECHNIQUE: Imaging protocol: Bilateral Screening tomosynthesis and 2D mammography including computer-aided detection (CAD) when performed. COMPARISON: 1. MG MM DIG SCREENING MAMM BI W/CAD 04/30/2022 4:35 PM 2. MG MM DIG SCREENING MAMM BI W/CAD 06/01/2020 8:21 AM FINDINGS: MAMMOGRAPHY: Breast composition: There are scattered areas of fibroglandular density. Mass: None. Architectural distortion: None. Calcifications: No suspicious calcifications. Asymmetric density: None. Skin thickening: None. Axillary adenopathy: None. IMPRESSION: No mammographic evidence of malignancy. Annual screening is recommended unless otherwise clinically indicated. ASSESSMENT: BI-RADS Category 1: Negative
--- NOTE | 2023-08-29 13:31 | XR_ITS ---
FINAL REPORT TECHNIQUE: Bone mineral density was calculated of the lumbar spine and hip. CLINICAL HISTORY: OSTEOPENIA COMPARISON: 06/01/2020 FINDINGS: Using L1-4, the bone mineral density of the spine is 0.834 g/cm2, corresponding to T-score of -1.9. Using the left hip, the bone mineral density of the femoral neck is 0.624 g/cm2, corresponding to a T-score of -2.0. Using the right hip, the bone mineral density of the femoral neck is 0.675 g/cm?, corresponding to a T-score of -1.6. NOTE: T-score: Standard deviation compared with peak bone mass of young adult mean. *Following the recommendations of the International Society of Bone densitometry, classification of hip BMD is based on the lower of two T-scores; total hip or femoral neck. IMPRESSION: Diminished bone mineral density of the lumbar spine and bilateral hips consistent with low bone density. Reviewed, Interpreted and Dictated by Abraham Kern III, MD Transcribed by Elizabeth Vaughan Authenticated and [facility]
== END 2023-08-29 23:59 | disposition home or self-care (01) ==
LOC: RAD 12:53
PROVIDERS: PCP Family Medicine; Visit Provider Family Medicine
DX: Z12.31 Encounter for screening mammogram for malignant neoplasm of breast (principal); Z78.0 Asymptomatic menopausal state; M85.89 Other specified disorders of bone density and structure, multiple sites
CPT/HCPCS: 77063; 77067; 77080

== ENCOUNTER 2024-02-23 09:58 | Emergency (ER) | payer OTHER, SELFPAY ==
[2024-02-23 09:59] VITALS: BP 170/86; PULSE 81; RESP 18; TEMP 36.8; O2SAT 97; BMI 30.9
--- NOTE | 2024-02-23 10:24 | CT_ITS ---
PROCEDURE INFORMATION: Exam: CT Abdomen And Pelvis With Contrast Exam date and time: 02/23/2024 11:58 AM Age: 63 years old Clinical indication: Abdominal pain; Generalized; Additional info: Low back, lower abd pain TECHNIQUE: Imaging protocol: Computed tomography of the abdomen and pelvis with contrast. Radiation optimization: All CT scans at this facility use at least one of these dose optimization techniques: automated exposure control; mA and/or kV adjustment per patient size (includes targeted exams where dose is matched to clinical indication); or iterative reconstruction. Contrast material: ISOVUE; Contrast volume: 75 ml; Contrast route: IV; COMPARISON: CT ABDOMEN PELVIS W CON 04/04/2021 2:11 AM FINDINGS: Lungs: Bibasilar atelectasis versus parenchymal scarring. Diaphragm: Hiatal hernia Liver: Decreased density throughout the liver compatible with hepatic steatosis. Gallbladder and biliary ducts: Cholecystectomy Pancreas: Pancreas unremarkable Spleen: The spleen is unremarkable. Splenic granulomas Adrenal glands: Adrenal glands unremarkable. Kidneys and ureters: No hydronephrosis. Stomach and bowel: Mild stool burden Appendix: No evidence of appendicitis. Intraperitoneal space: Unremarkable. No free air. No significant fluid collection. Vasculature: Unremarkable. No abdominal aortic aneurysm. Lymph nodes: Unremarkable. No enlarged lymph nodes. Urinary bladder: Unremarkable as visualized. Reproductive: Hysterectomy Bones/joints: Unremarkable. No acute fracture. Soft tissues: Unremarkable. IMPRESSION: No evidence of acute abnormality.
[2024-02-23] MEDS: ACETAMINOPHEN 500MG TAB 1000 MG PO (10:30)
[2024-02-23] MEDS: KETOROLAC 30MG/ML VIAL 15 MG IV (10:30)
[2024-02-23 10:31] LABS: Basophils # 0.1 K/mm3 (0-0.2); Basophils % 1.4 % (0.1-2.0); Eosinophils # 0.1 K/mm3 (0.0-0.4); Eosinophils % 1.9 % (0.1-12.0); Hematocrit 48.8 % (37.0-47.0); Lymphocytes # 1.7 K/mm3 (0.7-4.5); Lymphocytes % 27.9 % (10-50); Mean Corpuscular Hemoglobin 31.2 pg (27.0-31.2); Mean Corpuscular Volume 89.2 fl (81-99); Mean Platelet Volume 9.6 fl (7.4-10.4); Monocytes # 0.4 K/mm3 (0.1-1.0); Monocytes % 5.9 % (1.7-9.3); Neutrophils # 3.9 K/mm3 (1.8-7.8); Neutrophils % 62.9 % (37.0-80.0); Platelet Count 202 K/mm3 (142-424); Red Blood Count 5.47 M/mm3 (4.20-5.40); Red Cell Distribution Width 14.1 % (11.5-17.5); White Blood Count 6.2 K/mm3 (4.8-10.8)
[2024-02-23 10:33] LABS: Albumin Level 4.7 g/dl (3.5-5.0); Chloride 104 mmol/L (98-107); Potassium 3.7 mmoL/L (3.5-5.1)
--- NOTE | 2024-02-23 10:35 | ED_ITS ---
Discharge Plan Disposition Patient Disposition: Home, Self-Care Condition: Good Prescriptions Prescriptions: New prednisone 20 mg tablet 40 mg PO BID 5 Days Qty: 20 0RF methocarbamol 750 mg tablet 750 mg PO Q8H PRN (Reason: pain) Qty: 20 0RF No Action hydrochlorothiazide 12.5 mg capsule 12.5 mg PO DAILY calcium carbonate [Calcium 500] 500 mg calcium (1,250 mg) tablet,chewable 500 mg PO DAILY pravastatin 20 mg tablet See Rx Instructions .ROUTE .COMPLEX Qty: 90 0RF Dose Instruction: Take 1 tablet by mouth once daily Rx Instructions: Take 1 tablet by mouth once daily omeprazole 40 MG capsule,delayed release(DR/EC) 40 mg PO DAILY lisinopril 5 MG tablet 5 mg PO DAILY alendronate 35 MG tablet 35 mg PO DAILY levothyroxine 50 MCG tablet 50 mcg PO DAILY Referrals Follow up/Referrals: Letitia Dc MD [Primary Care Provider] - See instructions Activity Restrictions/Add. Instructions Additional Instructions/Restrictions: You were evaluated in the emergency department today. Please pickers material handlers your prescriptions at the pharmacy and take them as prescribed for pain. You may also take Tylenol and ibuprofen every 4-6 hours at home as needed for pain. Please follow-up very closely with your primary care provider for reassessment. Return to the emergency department for new or worsening symptoms such as significant worsening in pain, numbness and tingling in your groin, inability to control your bowels or bladder, or other new concerns. Clinical Impressions Clinical Impression: Low back pain, Herniation of intervertebral disc between L4 and L5 Stand Alone Forms Stand Alone Forms: Work/School Release Instructions Patient Instructions: DI for Herniated Disc Print Language Print Language: Faroese Discharge ED Provider: [facility] HPI General Chief complaint: Abdominal Pain Stated complaint: abd/lower back pain Time Seen by Provider: 02/23/24 10:02 Mode of Arrival: Wheelchair Source of Information: Patient Limitations: No Limitations Description of Symptoms (Recalled from ER Triage Doc. by RN): pt presents to the er for lower back pain that radiates around to her abdomen, states it started last week, pain is intermittent, rates pain currently 5/10, denies n/v/d, denies blood in urine, states bowel and bladder pattern is normal, states pain is sharp History of Present Illness HPI narrative: This patient is a 63-year-old female with a history of hypertension, hyperlipidemia, hypothyroidism presenting to the emergency department for evaluation with concern for low back pain radiating around to her lower abdomen, especially on the left. This has been going on for about a week. No fevers, chills, nausea, vomiting, changes bowel movements, urinary symptoms, or other concerns noted. No numbness, tingling, saddle anesthesia or other issues. The pain is sharp. She states that she initially thought that maybe she had pulled something but the pain is not getting better. Patient is deaf and history is obtained from both the patient as well as her , who helps interpret with ASL. Related Data Home Medications ?Medication ?Instructions ?Recorded ?Confirmed lisinopril 5 mg tablet 5 mg PO DAILY Supplement 04/22/17 02/23/24 omeprazole 40 mg capsule,delayed 40 mg PO DAILY GERD 09/06/18 02/23/24 release alendronate 35 mg tablet 35 mg PO DAILY gout 04/04/21 02/23/24 levothyroxine 50 mcg tablet 50 mcg PO DAILY hypothyroid 04/04/21 02/23/24 calcium carbonate (Calcium 500) 500 mg PO DAILY 06/18/23 02/23/24 hydrochlorothiazide 12.5 mg capsule 12.5 mg PO DAILY 06/18/23 02/23/24 Previous Rx's ?Medication ?Instructions ?Recorded pravastatin 20 mg tablet See Rx Instructions .Route 07/13/22 .COMPLEX #90 tabs methocarbamol 750 mg tablet 750 mg PO Q8H PRN pain #20 tabs 02/23/24 prednisone 20 mg tablet 40 mg (2 x 20 mg) PO BID 5 days 02/23/24 #20 tabs Allergies Allergy/AdvReac Type Severity Reaction Status Date / Time codeine Allergy Intermediate I-RASH; Verified 02/23/24 10:24 NAUSEA/VOMITING chocolate flavor AdvReac Mild NA-NAUSEA/V Verified 02/23/24 10:24 [From CHOCOLATE (FOOD/DRUG)] OMITING From CHOCOLATE (FOOD/DRUG) AdvReac Mild NA-NAUSEA/V Uncoded 04/09/17 14:26 OMITING PFSH PFSH Disclaimer: The information contained in this section may have been updated after the patient was seen, as this information can be updated by other users. Social History Smoking Status: Never smoker second hand exposure: No alcohol intake: never current occupational status: other Travel in the last 8 weeks: None housing: house caffeine: No Other Medical History Have you received the Flu Vaccine for this season: No Have you received the Pneumonia Vaccine: No ROS Obtained: Yes All systems reviewed & no additional complaints except as documented Physical Exam General General appearance: alert and in no apparent distress Head Head exam: atraumatic and normocephalic Eye Eye exam: Present normal appearance, PERRL and EOMI ENT ENT exam: Present normal exam, normal oropharynx, mucous membranes moist and normal external ear exam Neck Neck exam: Present normal inspection, full ROM and trachea midline; Absent tenderness Chest Chest inspection: Present normal inspection and symmetric chest wall rise; Absent tenderness Respiratory Respiratory exam: Present normal lung sounds bilaterally; Absent respiratory distress, wheezes, stridor or accessory muscle use Cardiovascular Cardiovascular exam: Present regular rate and normal rhythm Abdominal Exam Abdominal exam: Present soft, tenderness (Lower abdomen) and normal bowel sounds; Absent distention, guarding, rebound or rigidity Extremities Exam Extremities exam: Present normal inspection, full ROM and normal capillary refill; Absent tenderness or edema Back Exam Back exam: Present full ROM and tenderness (Low back) Neurological Exam Neurological exam: Present alert, oriented X3, CN II-XII intact and normal gait; Absent motor sensory deficit Psychiatric Psychiatric exam: Present normal affect and normal mood Skin Skin exam: Present warm and dry Medical Decision Making Medical Records Medical records reviewed: Yes I reviewed the patient's medical records. Screening: Per USPSTF and CDC recommendations, given the prevalence of disease in our region, it is our hospital?s policy to screen for HIV and viral Hepatitis for all patients aged 18 and over and those with ongoing risk factors. Perry Inquiry Pt receiving controlled substance: No Vital Signs: 02/23/24 09:59 02/23/24 11:32 02/23/24 12:16 Temperature 98.2 F Temperature Source Oral Pulse Rate 67 69 Pulse Rate [Right Radial] 81 Respiratory Rate 18 Blood Pressure 159/96 H 160/94 H Blood Pressure [Right Arm] 170/86 H Blood Pressure Mean [Right Arm] 114 Blood Pressure Source Blood Pressure Source [Right Arm] Automatic Cuff Blood Pressure Position Blood Pressure Position [Right Arm] Sitting 02 Sat by Pulse Oximetry 97 97 95 Oxygen Delivery Method Room Air Room Air Room Air 02/23/24 13:04 Temperature 98.2 F Temperature Source Oral Pulse Rate 69 Pulse Rate [Right Radial] Respiratory Rate 16 Blood Pressure 160/94 H Blood Pressure [Right Arm] Blood Pressure Mean [Right Arm] Blood Pressure Source Automatic Cuff Blood Pressure Source [Right Arm] Blood Pressure Position Sitting Blood Pressure Position [Right Arm] 02 Sat by Pulse Oximetry Oxygen Delivery Method Room Air Lab Data Lab results reviewed: Yes I reviewed the patient's lab results. Lab Results 02/23/24 10:15: WBC 6.2, RBC 5.47 H, Hgb 17.0 H, Hct 48.8 H, MCV 89.2, MCH 31.2, MCHC 35.0, RDW 14.1, Plt Count 202, MPV 9.6, Neut % (Auto) 62.9, Lymph % (Auto) 27.9, [place] % (Auto) 5.9, Eos % (Auto) 1.9, Baso % (Auto) 1.4, Neut # (Auto) 3.9, Lymph # (Auto) 1.7, [place] # (Auto) 0.4, Eos # (Auto) 0.1, Baso # (Auto) 0.1, Sodium 142, Potassium 3.7, Chloride 104, Carbon Dioxide 30, Anion Gap 11.7, BUN 12, Creatinine 0.70, Estimated Creat Clear 76, Estimated GFR 85, Est GFR ( Amer) 103, Glucose 142 H, Calcium 9.0, Total Bilirubin 0.6, AST 38 H, ALT 44, Alkaline Phosphatase 53, Total Protein 8.0, Albumin 4.7, Globulin 3.3 H, Albumin/Globulin Ratio 1.4, Lipase 69, HIV 1&2 Antibody Rapid Nonreactive 02/23/24 11:05: Urine Color Yellow, Urine Appearance Clear, Urine pH 7.5, Ur Specific [place] 1.010, Urine Protein Negative, Urine Glucose (UA) Negative, Urine Ketones Negative, Urine Blood Negative, Urine Nitrate Negative, Urine Bilirubin Negative, Urine Urobilinogen 0.2, Ur Leukocyte Esterase Negative, Urine RBC None, Urine WBC None, Ur Squamous Epith Cells Occasional, Urine Bacteria Trace 02/23/24 10:15 02/23/24 10:15 Orders (Tests/Meds): ED MEDICATIONS Discontinued Medications Generic Name Dose Route Start Last Admin Trade Name Kelly PRN Reason Stop Dose Admin Acetaminophen 1,000 mg 02/23/24 10:24 02/23/24 10:30 Acetaminophen 500mg Tab PO 02/23/24 10:25 1,000 mg ONCE ONE Administration Iopamidol 75 ml 02/23/24 11:04 02/23/24 11:05 Iopamidol-370 (76%);100ml Bottle IV 02/23/24 11:05 75 ml ONCE ONE Administration Ketorolac Tromethamine 15 mg 02/23/24 10:24 02/23/24 10:30 Ketorolac 30mg/Ml Vial IV 02/23/24 10:25 15 mg ONCE ONE Administration Sodium Chloride 10 ml 02/23/24 10:37 Sodium Chloride 0.9% 10ml Flush Syringe IV 03/24/24 10:36 NEEDED PRN Maintain IV Site Sodium Chloride 10 ml 02/23/24 11:04 02/23/24 11:05 Sodium Chloride 0.9% 10ml Syr (Rad Only) IV 02/23/24 11:05 10 ml ONCE ONE Administration ORDERS Category Date Time Status CT abdomen pelvis w con Stat Cat Scan 02/23/24 10:[address] lumbar spine wo con Stat Cat Scan 02/23/24 10:39 Completed CBC w/Auto Diff [Complete Blood Count Auto Diff] Stat Lab 02/23/24 10:15 Completed CMP [Comprehensive Metabolic Panel] Stat Lab 02/23/24 10:15 Completed HIV (1&2) Antibody Rapid Stat Lab 02/23/24 10:15 Completed Hep C Ab with Reflex to RNA Stat Lab 02/23/24 10:15 Received Lipase Stat Lab 02/23/24 10:15 Completed UA [Urinalysis and Microscopic] Stat Lab 02/23/24 11:05 Completed Medical Decision Narrative: In summary, this patient is a 63-year-old female presenting to the Emergency Department for evaluation of low back pain radiating around to her lower abdomen. Differential diagnoses considered include but are not limited to musculoskeletal strain/sprain, diverticulitis, colitis, pyelonephritis, ureterolithiasis. Ruling out the most morbid conditions drove assessment. It should be noted patient's history includes hypertension, hyperlipidemia, hypothyroidism which he or may not be at goal therapy. This complicates all aspects of care by increasing patient's risk for morbidity. On exam, the patient is sitting upright in bed in no acute distress. She is nontoxic-appearing with reassuring vital signs on cardiac telemetry. She has some lower abdominal tenderness as well as low back tenderness, but no neurologic symptoms concerning for spinal cord compression or cauda equina syndrome. Workup included CBC, CMP, lipase, urinalysis, CT lumbar spine, CT abdomen pelvis with IV contrast. She was given IV Toradol, oral Tylenol for symptomatic improvement of pain. I independently interpreted CT scan prior to the radiologist read and noted L4/5 disc herniation. Please see their read for final interpretation. Labs were obtained that demonstrated no significant leukocytosis, no hematuria, reassuring chemistry. On reassessment, patient had great improvement after administration of interventions above. She remains neurologically intact. Ultimately, I feel her symptoms are likely musculoskeletal and could be related to her L4/5 herniation. Given with excluded acute life-threatening pathology with workup otherwise, I feel it is appropriate for discharge home with instructions for supportive management and strict return precautions. She was given prescription for prednisone and muscle relaxer to treat this. Strict return precautions were given and she was discharged after all questions were answered Critical Care Critical Care Time Critical Care Time: No
[2024-02-23 10:36] LABS: Alanine Aminotransferase 44 U/L (12-78); Albumin/Globulin Ratio 1.4 (1.1-1.8); Alkaline Phosphatase 53 U/L (38-126); Aspartate Amino Transferase 38 U/L (14-36); Bilirubin,Total 0.6 mg/dl (0.2-1.3); Blood Urea Nitrogen 12 mg/dl (7-17); Carbon Dioxide 30 mmol/L (22.0-30.0); Creatinine Clearance Estimated 76 mL/min (50-200); Estimated Glomerular Filt Rate 85 ml/min (>60); GFR (African American) 103 ML/MIN (>60); Globulin 3.3 g/dL (1.3-3.2); Lipase 69 U/L (23-300)
[2024-02-23 10:37] LABS: Glucose 142 mg/dl (74-100)
--- NOTE | 2024-02-23 10:39 | CT_ITS ---
PROCEDURE INFORMATION: Exam: CT Lumbar Spine Without Contrast Exam date and time: 02/23/2024 11:55 AM Age: 63 years old Clinical indication: Low back pain TECHNIQUE: Imaging protocol: Computed tomography of the lumbar spine without contrast. Radiation optimization: All CT scans at this facility use at least one of these dose optimization techniques: automated exposure control; mA and/or kV adjustment per patient size (includes targeted exams where dose is matched to clinical indication); or iterative reconstruction. COMPARISON: CT ABDOMEN PELVIS W CON 04/04/2021 2:11 AM FINDINGS: Bones/joints: incomplete visualization of approximate 4 mm disc protrusion at L4-L5. Consider follow-up with magnetic resonance imaging for further evaluation. Soft tissues: Unremarkable. IMPRESSION: Incomplete visualization of approximate 4 mm disc protrusion at L4-L5. Consider follow-up with magnetic resonance imaging for further evaluation.
--- NOTE | 2024-02-23 10:43 | PC.NURSE ---
Patient is out of the room, patient is gone to CT.
--- NOTE | 2024-02-23 11:01 | PC.NURSE ---
pt returned from radiology
[2024-02-23 11:04] LABS: HIV (1&2) Antibody Rapid NONREACTIVE (NONREACTIVE)
[2024-02-23 11:05] LABS: Anion Gap 11.7 mEq/L (5-15); Sodium 142 mmol/L (136-145)
[2024-02-23] MEDS: IOPAMIDOL-370 (76%);100ML BOTTLE 75 ML IV (11:05)
[2024-02-23] MEDS: SODIUM CHLORIDE 0.9% 10ML SYR (RAD ONLY) 10 ML IV (11:05)
[2024-02-23 11:13] LABS: Appearance,Urine CLEAR (Clear); Bilirubin,Urine Negative (Negative); Blood, Urine Negative (Negative); Color,Urine YELLOW (Yellow); Glucose,Urine (UA) Negative (Negative); Ketones,Urine Negative (Negative); Leukocyte Esterase,Urine Negative (Negative); Microscopic, Urine URINE MICROSCOPIC (MICROSCOPIC); Nitrate,Urine Negative (Negative); PH,Urine 7.5 (5.0-8.5); Protein,Urine Negative (Negative); Urobilinogen,Urine 0.2 EU/dl (0.2)
[2024-02-23 11:22] LABS: Bacteria,Urine Trace /lpf; Squamous Epithelial Cell,Urine Occasional #/hpf (0-5)
[2024-02-23 11:32] VITALS: BP 159/96; PULSE 67; O2SAT 97
[2024-02-23 12:16] VITALS: BP 160/94; PULSE 69; O2SAT 95
--- NOTE | 2024-02-23 12:36 | PC.NURSE ---
DR CAO AT BEDSIDE TO REEVALUATE PT
[2024-02-23 13:04] VITALS: BP 160/94; PULSE 69; RESP 16; TEMP 36.8; O2SAT 95
[2024-02-25 05:10] LABS: HCV Ab Non Reactive (Non Reactive)
== END 2024-02-23 13:05 | disposition home or self-care (01) ==
PROVIDERS: Emergency Provider Emergency Medicine; PCP Family Medicine
DX: M54.50 Low back pain, unspecified (principal)
CPT/HCPCS: 72131; 74177; 80053; 81001; 83690; 85025; 86803; 87389; 96374; 99285; J1885; Q9967

== ENCOUNTER 2024-10-17 11:33 | Outpatient (CLI) | payer OTHER, SELFPAY ==
--- OUTSIDE RECORDS SUMMARY | 2024-04-23 09:30 | XMS_ITS ---
Author Organization [facility] Address [address] [place] [id number] Care Team Providers Care Voip Technician Name Role Phone Gurjit Dc Primary Care Provider [phone] Allergies Allergen (clinical drug ingredient) Drug/Non Drug Allergy documented on EMR Reaction Allergy Type Onset Date Status codeine Codeine Unknown Drug Allergy Active Reason For Referral Reason abdominal pain, hist ory of colitis Diagnosis 1 Lower abdominal pain (R10.30) [facility] Referring Provider First Name Gurjit Huffman Referring [...] 04/23/2024 Encounters Encounter Location Date Provider Diagnosis [facility] [address] [facility] [address] [place], [place] [id number] 04/23/2024 Gurjit Dc Essential hypertensi on I10 [...] 3 Months, Reason: Provider Name:Gurjit Carlos er, 12/07/2024 10:00:00 AM, [address], [address], [place], [place], [phone], Progress Notes * PEPE PARKDOB: [birth year] (63 yo F)Acc No.[id number]:04/23/2024 Progress Notes Patient: PEPE RODRIGUEZ Provider: Gurjit Dc M.D. :1960 A ge:63 Y S ex:Female Date:04/23/2024 Address:[address], [place], [id number] Subjective: * Chief Complaints: * 1 . 4 months. * HPI: C ardiology: The patient is here for a check up on Hypertension and GERD. Pt states she is still having pain in her lower abdomen. Pt states she did have diarrhea the week of . Pt states she is needing a refill for Levothyroxine and Celebrex sent to [facility] in [place]. Denies : Chest Pain. D enies : [...] Fibroid Uterus, Anemia, Menorrhagia 03-24-09, hysterectomy 04/2009, [facility] ER - URI 04/22/17. * Family History: F ather: 64 yrs, diagnosed with Diabetes, Heart Disease. M other: alive 79 yrs.?2 sister(s) . 3 son(s) , 1 daughter(s) . . Mother with CAD, [place]. Father had CAD and diabetes. * Social [...] * Images: Billing Information: * Visit Code: 15167 Office Visit, Est Pt., Level 4. * Procedure Codes: * Electronic signature of Gurjit Dc MD on 10/19/2024 at 11:38 AM EDT Sign off status: Pending * Provider: Gurjit Dc M.D. Date: 0 04/23/2024 Generated for Patricioi lucía/Monica/eTransmitting on: 0 10/19/2024 11:38 AM EDT History and Physical Notes * HPI (History [...]
--- OUTSIDE RECORDS SUMMARY | 2024-08-06 12:00 | XMS_ITS ---
Author Organization [facility] Address [address] [facility] [address] [place] [id number] Care Team Providers Care Food Consultant Name Role Phone Gurjit Dc Primary Care Provider Allergies Allergen (clinical drug ingredient) Drug/Non Drug Allergy documented on EMR Reaction Allergy Type Onset Date Status codeine Codeine Unknown Drug Allergy Active Results Component Value Reference Range Notes P-Comprehensive Metabolic Pa navi (CMP) Reviewed date:08/13/2024 12:46:40 PM Interpretation:Normal Performing Lab: Notes/Report: Test performed by [employer] [facility] , [address], [place] [address] Jaciel Corrales MD, Automotive Exhaust Emissions Technician CLIA: [id number] Sodium 144 135-145 mmol/L Potassium 3.9 3.5-5.3 [...] Risk Notes Problem BMI 30+ - obesity (104876711) BMI 32.0-32.9,a dult (Z68.32) Active confirmed Vital Signs Blood pressure systolic 122 mm Hg 08/07/19 25 Blood pressure diastolic 92 mm Hg 025 Heart Rate 71 /min 08/06/2024 Height 63.25 in 08/06/2024 Weight 182.2 lbs 08/06/2024 BMI 32.02 kg/m2 08/06/2024 Encounters Encounter Location Date Provider Diagnosis [facility] [address] [facility] [address] [place], [place] [id number] 08/06/2024 Gurjit Dc Essential hypertensi on I10 [...] 4 Months, Reason: Provider Name:Gurjit Carlos er, 12/07/2024 10:00:00 AM, [address] [facility] [address] [facility], [address], [place], [place], [id number], Progress Notes * NASH VIVIANAGAILDOB: 3 (63 yo F)Acc No.[id number]:08/06/2024 Progress Notes Patient: PEPE RODRIGUEZ Provider: Gurjit Dc M.D. :1960 A ge:63 Y S ex:Female Date:08/06/2024 Address:[address] [facility], [id number] Subjective: * Chief Complaints: * 1 . [...] Fibroid Uterus, Anemia, Menorrhagia 03-24-09, hysterectomy 04/2009, [facility] - URI 04/22/17. * Family History: F ather: 64 yrs, diagnosed with Diabetes, Heart Disease. M other: alive 79 yrs.?2 sister(s) . 3 son(s) , 1 daughter(s) . . Mother with CAD, [place]. Father had CAD and diabetes. * Social [...] yperlipidemia, unspecified - E78.5 5 . B [place] 32.0-32.9,adult - Z68.32 Plan: * Treatment: Value [...] * Images: Billing Information: * Visit Code: 01595 Office Visit, Est Pt., Level 3. * Procedure Codes: 3074F SYST BP LT 130 MM HG. 3080F DIAST BP = 90 MM HG. * Electronic signature of Gurjit Dc MD on 10/19/2024 at 11:38 AM EDT Sign off status: Pending * Provider: Gurjit Dc M.D. Date: 0 08/06/2024 Generated for Dusty castrejon/Monica/eTransmitting on: 0 10/19/2024 11:38 AM EDT History [...]
--- OUTSIDE RECORDS SUMMARY | 2024-10-14 07:30 | XMS_ITS ---
Author Organization [facility] Address [address] [facility] [address] [place] [id number] Care Team Providers Care Veterinary Technology Instructor Name Role Phone Gurjit Dc Primary Care Provider Cathy Ramos Unavailable [phone] Allergies Allergen (clinical drug ingredient) Drug/Non Drug [...] Blood pressure systolic 120 mm Hg 10/15/19 25 Blood pressure diastolic 84 mm Hg 025 Heart Rate 74 /min 10/14/2024 Height 63.25 in 10/14/2024 Weight 180.8 lbs 10/14/2024 BMI 31.77 kg/m2 10/14/2024 Encounters Encounter Location Date Provider Diagnosis [facility] [address] [facility] [address] [place] [id number] 10/14/2024 Cathy Ramos Bug bite with infection, subsequent encounter W57.XXXD Assessments Encounter Date Diagnosis (ICD Code) Assessment Notes Treatment Notes Treatment Clinical Notes Section Notes 10/14/2024 Bug bite with infection, subsequent encounter (ICD-10 - W57.XXXD) Healing well, no further abx necessary. Plan Of Treatment Treatment Notes Assessment Notes Bug bite with infection, subsequent enco unter Healing well, no further abx necessary. Next Appt Details Follow Up: prn, Reason: Provider Name:Gurjit Carlos er, 12/07/2024 10:00:00 AM, [address] [facility] [address] [facility], [address], [place], [phone], Progress Notes * PEPE PARKDOB: 3 (63 yo F)Acc No.[id number]:10/14/2024 Progress Notes Patient: PEPE RODRIGUEZ Provider: TONIA Tijerina :1960 A ge:63 Y [...] last week, and she went to the [facility]. Pt was given antibiotic and a cream. [...] Fibroid Uterus, Anemia, Menorrhagia 03-24-09, hysterectomy 04/2009, [facility] ER - URI 04/22/17. * Family History: F ather: 64 yrs, diagnosed with Diabetes, Heart Disease. M other: alive 79 yrs.?2 sister(s) . 3 son(s) , 1 daughter(s) . . Mother with CAD, [place]. Father had CAD and diabetes. * Social [...] not even visible. Assessment: * Assessment: 1. B ug bite with infection, subsequent encounter - W57.XXXD (Primary) Plan: * Treatment: * Follow Up: p rn * Images: Billing Information: * Visit Code: 64320 Office Visit, Est Pt., Level 3. * Procedure Codes: * Electronic signature of TONIA Kaur on 10/19/2024 at 11:38 AM EDT Sign off status: Pending * Provider: TONIA Tijerina Date: 10/14/2024 Generated for Dusty castrejon/Monica/Christinaitting on: 10/19/2024 11:38 AM EDT History and Physical Notes * HPI (History of Present Illness) Category Sub-Category Detail Notes Category Not es Dermatology bug bites The pt is here f or a follow-up on bug bite of the right forearm. Pt states the site was very red and swollen last week, and she went to the [facility]. Pt was given antibiotic and a cream. Pt states the site is doing much better Examination Category Sub-Category Detail Notes Category Not es General Examination Heart: RSR Lungs: clear to auscultatio n General Appearance: NAD Skin: right forearm with n o further erythema, the bite kyleigh is not even visible Chest: normal shape and exp ansion
--- OUTSIDE RECORDS SUMMARY | 2024-10-19 11:38 | XMS_ITS | Patient Health Record ---
Author Organization [facility] Address 1210 [facility] 36 [facility] [address] [place] [phone] Care Team Providers Care City Designer Name Role Phone Gurjit Dc Primary Care Provider Cathy Ramos Unavailable [phone] Allergies Allergen (clinical drug ingredient) Drug/Non Drug Allergy documented on EMR Reaction Allergy Type Onset Date Status codeine Codeine Unknown Drug Allergy Active Results Component Value Reference Range Notes Cologuard Reviewed date:01/22/2024 03:50:34 PM Interpretation:Negative Performing Lab: Notes/Report: Negative Cologuard Negative P-Comprehensive Metabolic Pa navi (CMP) Reviewed date:01/01/2024 09:13:12 AM Interpretation: Performing Lab: Notes/Report: P-TSH Reviewed date:01/01/2024 09:13:25 AM Interpretation: Performing Lab: Notes/Report: P-Comprehensive Metabolic Pa navi (CMP) Reviewed date:08/13/2024 12:46:40 PM Interpretation:Normal Performing Lab: Notes/Report: Test performed by Rossolini, [facility] , [address], [place] [address] Jaciel Corrales MD, Fan Installer CLIA: [id number] Sodium 144 135-145 mmol/L Potassium 3.9 3.5-5.3 [...] 0.3 <0.2-1.2 mg/dL A/G Ratio 1.8 1.1-2.5 P-TSH Reviewed date:01/01/2024 04:01:08 PM Interpretation:Normal Performing Lab: Notes/Report: Test performed by [facility] [address] [place] [address] , [address], [place] [address] Jaciel Corrales MD, Fan Installer CLIA: [id number] TSH 2.05 0.43-5.25 mU/L P-Comprehensive Metabolic Pa navi (CMP) Reviewed date:01/01/2024 04:01:08 PM Interpretation:satisfactory Performing Lab: Notes/Report: Test performed by [facility] [address] [place] [address] , [address], [place] [address] Jaciel Corrales MD, Fan Installer CLIA: [id number] Sodium 144 135-145 mmol/L Potassium 4.5 3.5-5.3 [...] 0.5 <0.2-1.2 mg/dL A/G Ratio 2.0 1.1-2.5 Medications Medication SIG (Take, Route, Frequency, Duration) [...] day prn; Duration: 30 day(s) 10/10/2022 Not-Taking Omeprazole 40 MG 1 cap(s) orally once a day Active Cyclobenzaprine HCl 5 MG 1 -2tab(s) oral ly 3 times a day prn 08/27/2022 Not-Taking Celecoxib 200 MG 1 capsule with food Orally Once a day; Duration: 30 day(s) 06/10/2023 Active Citracal +D3 250-107-500 MG-MG-UNIT 2 tab(s) chewed 2 times a day (with meals); Duration: 30 day(s) 06/03/2020 Active Align 4 MG as directed Orally 04/23/2024 Active MiraLax 17 GM/SCOOP 1 scoop mixed with 8 ounces of fluid Orally Once a day; Duration: 30 day(s) 04/23/2024 Active Immunizations Vaccine Route Administration Date Status Comme nts Fluzone Quad (6months&older) IM Intramuscular 02/12/2018 Administered COVID 19 Pfizer Unknown 10/26/2020 Administered Problems Problem Type SNOMED Code ICD Code Onset Dates Problem Status W/U Status Risk Notes Problem Essential hypertension (37420787) Essential hypertension (I10) Active confirmed Problem Osteopenia (741503829) Osteopenia (M85.80) Active confirmed Problem BMI 30+ - obesity (275952852) BMI 32.0-32.9,adult (Z68.32) Active confirmed Problem Breathing painful (11267200) Rib pain on left side (R07.81) Active confirmed Problem Hyperlipidemia (93600594) Hyperlipidemia, unspecified (E78.5) Active confirmed Problem Acquired hypothyroidism (242305126) Acquired hypothyroidism (E03.9) Active confirmed Problem Gastroesophageal reflux disease with esophagitis (disorder) (236869689) GERD with esophagitis (K21.0) Active confirmed Problem Abnormal gait (05138732) Imbalance (R26.89) Active confirmed Problem Raised antinuclear antibody (656585122) SHONDA positive (R76.8) Active confirmed Problem Fibrocystic breast changes (94553964) Fibrocystic breast disease (FCBD), unspecified laterality (N60.19) Active confirmed Problem Plantar nerve lesion (982748137) 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) Active confirmed Vital Signs Heart Rate 74 /min 10/14/2024 Blood pressure diastolic 84 mm Hg 10/14/2024 Height 63.25 in 10/14/2024 Blood pressure systolic 120 mm Hg 10/14/2024 Weight 180.8 lbs 10/14/2024 BMI 31.77 kg/m2 10/14/2024 Encounters Encounter Location Date Provider Diagnosis [facility] [address] [facility] [address] [id number] 12/26/2023 J Nathanael Dc Essential hypertensi on I10 ; Acquired hypothyroidism E03.9 ; Osteopenia M85.80 ; GERD with esophagitis K21.0 ; Screen for colon cancer Z12.11 ; Multiple joint pain M25.50 and Positive SHONDA (antinuclear antibody) R76.8 [facility] [address] [id number] 12/27/2023 J Nathanael Dc Essential hypertensi on I10 and Acquired hypothyroidism E03.9 [facility] [address] [id number] 04/23/2024 J Nathanael Dc Essential hypertensi on I10 ; Acquired hypothyroidism E03.9 and Lower abdominal pain R10.30 [facility] [address] [id number] 08/06/2024 J Nathanael Dc Essential hypertensi on I10 ; Acquired hypothyroidism E03.9 ; SHONDA positive R76.8 ; Hyperlipidemia, unspecified E78.5 and BMI 32.0-32.9,adult Z68.32 [facility] 12[address] [facility] [address] [id number] 10/14/2024 Cathy Crowdy Bug bite with infect ion, subsequent encounter W57.XXXD [facility] [address] [id number] 10/31/2023 Gurjit Dc Acquired hypothyroid ism E03.9 [facility] [address] [facility] [address] [place], [place] [id number] 12/02/2023 J Nathanael Dc Osteopenia M85.80 [facility] [address] [place], [place] [id number] 01/09/2024 J Nathanael Dc [facility] [address] [facility] [address] [place], [place] [id number] 02/05/2024 Gurjit Dc Essential hypertensi on I10 [facility] [address] [facility] [address] [place], [place] [id number] 03/30/2024 J Nathanael Dc Hyperlipidemia, unspecified E78.5 [facility] [address] [facility] [address] [place], [place] [id number] 08/05/2024 J Nathanael Dc Osteopenia M85.80 an d Essential hypertension I10 Assessments Encounter Date Diagnosis (ICD Code) Assessment Notes Treatment Notes Treatment Clinical Notes Section Notes 10/31/2023 Acquired hypothyroidism (ICD-10 - E03.9) 12/02/2023 Osteopenia (ICD-10 - M85.80) 12/26/2023 Essential hypertension (ICD-10 - I10) 12/26/2023 Acquired hypothyroidism (ICD-10 - E03.9) 12/27/2023 Essential hypertension (ICD-10 - I10) 02/05/2024 Essential hypertension (ICD-10 - I10) 03/30/2024 Hyperlipidemia, unspecified (ICD-10 - E78.5) 04/23/2024 Essential hypertension (ICD-10 - I10) 04/23/2024 Acquired hypothyroidism (ICD-10 - E03.9) 08/05/2024 Osteopenia (ICD-10 - M85.80) 08/06/2024 Essential hypertension (ICD-10 - I10) continue current therapy 08/06/2024 Acquired hypothyroidism (ICD-10 - E03.9) 10/14/2024 Bug bite with infection, subsequent encounter (ICD-10 - W57.XXXD) Healing well, no further abx necessary. 08/06/2024 SHONDA positive (ICD-10 - R76.8) 04/23/2024 Lower abdominal pain (ICD-10 - R10.30) 08/05/2024 Essential hypertension (ICD-10 - I10) 12/27/2023 Acquired hypothyroidism (ICD-10 - E03.9) 12/26/2023 Osteopenia (ICD-10 - M85.80) 12/26/2023 GERD with esophagitis (ICD-10 - K21.0) 08/06/2024 Hyperlipidemia, unspecified (ICD-10 - E78.5) 08/06/2024 BMI 32.0-32.9,adult (ICD-10 - Z68.32) 12/26/2023 Screen for colon cancer (ICD-10 - Z12.11) 12/26/2023 Multiple joint pain (ICD-10 - M25.50) 12/26/2023 Positive SHONDA (antinuclear antibody) (ICD-10 - R76.8) Plan Of Treatment Next Appt Details Provider Name:Gurjit Carlos er, 12/07/2024 10:00:00 AM, [address] [facility], [address], [place], [place], [phone], Insurance Providers Payer Name Payer Address Payer Phone Subscriber Number Group Number Insured Name Patient Relationship to Insured Coverage Start Date Coverage End Date [facility] [address] [place], [place] [phone] [id number] PEPE PARK Self - patient is the insured Medical (General) History Medical History History ICD Code deaf Surgical History Surgery Date(Month/Year) EGD 04/28 hysterectomy abdominal 04/2009 cholecystectomy 02-12-11 Hospitalization History Reason Date(Month/Year) [facility] ER - URI 04/22/17 hysterectomy 04/2009 Fibroid Uterus, Anemia, Menorrhagia 03-24 [facility], Gastro infection 07/11/2007
== END 2024-10-17 23:59 | disposition home or self-care (01) ==
LOC: LAB.DROPOF 10-19 11:33
PROVIDERS: PCP Family Medicine; Visit Provider Nurse Practitioner Family
DX: N39.0 Urinary tract infection, site not specified (principal)
CPT/HCPCS: 87086

== ENCOUNTER 2025-01-19 13:30 | Outpatient (CLI) | payer OTHER, SELFPAY ==
--- OUTSIDE RECORDS SUMMARY | 2024-10-14 07:30 | XMS_ITS ---
Author Organization [facility] Address [address] [facility] [address] [place] [id number] Care Team Providers Care Patient Registration Representative Name Role Phone Gurjit Dc Primary Care Provider Cathy Ramos Unavailable [phone] Allergies Allergen (clinical drug ingredient) Drug/Non Drug [...] Duration: 30 day(s) 06/10/2023 Active Vital Signs Weight 180.8 lbs 10/14/2024 Blood pressure systolic 120 mm Hg 10/15/19 Blood pressure diastolic 84 mm Hg 025 Heart Rate 74 /min 10/14/2024 Height 63.25 in 10/14/2024 BMI 31.77 kg/m2 10/14/2024 Encounters Encounter Location Date Provider Diagnosis [facility] [address] [place] [phone] 10/14/2024 Cathy Ramos Bug bite with infection, [...] [address], [address], [place], [phone], Progress Notes * PEPE PARKDOB: 3 (64 yo F)Acc No.[id number]:10/14/2024 Progress Notes Patient: VIVIANA RODRIGUEZLY Provider: TONIA Tijerina :1960 A ge:63 Y S ex:Female Date:10/14/2024 Address:[address], [id number] Pcp:Gurjit Dc Subjective: * Chief Complaints: * 1 . Bug bite right arm. * HPI: D ermatology: 63 year old female presents with c/o bug bites T he pt is here for a follow-up on bug bite of the right forearm. Pt states the site was very red and swollen last week, and she went to the [facility]. Pt was given antibiotic and a cream. [...] Fibroid Uterus, Anemia, Menorrhagia 03-24-09, hysterectomy 04/2009, [facility] ER - URI 04/22/17. * Family History: F ather: 64 yrs, diagnosed with Diabetes, Heart Disease. M other: alive 79 yrs.?2 sister(s) . 3 son(s) , 1 daughter(s) . . Mother with CAD, [place]. Father had CAD and diabetes. * Social [...] * Images: Billing Information: * Visit Code: 72188 Office Visit, Est Pt., Level 3. * Procedure Codes: * Electronic signature of TONIA Kaur on 01/19/2025 at 01:36 PM EDT Sign off status: Pending * Provider: TONIA Tijerina Date: 10/14/2024 Generated for Dusty castrejon/Monica/eTransmitting on: 01/19/2025 01:36 PM EDT History and Physical Notes * HPI (History of Present Illness) Category Sub-Category Detail Notes Category Not es Dermatology bug bites The pt is here f or a follow-up on bug bite of the right forearm. Pt states the site was very red and swollen last week, and she went to the [facility]. Pt was given antibiotic and a cream. Pt states the site is doing much better Examination Category Sub-Category Detail Notes Category Not es General Examination Heart: RSR Lungs: clear to auscultatio n General Appearance: NAD Skin: right forearm with n o further erythema, the bite kyleigh is not even visible Chest: normal shape and exp ansion
--- OUTSIDE RECORDS SUMMARY | 2024-12-14 11:00 | XMS_ITS ---
Author Organization [facility] Address [address] [facility] [address] [place] [phone] Care Team Providers Care Finishing Range Feeder Name Role Phone Gurjit Dc Primary Care Provider [phone] Allergies Allergen (clinical drug ingredient) Drug/Non Drug [...] orally once a day Active Vital Signs Weight 180.8 lbs 12/14/2024 Blood pressure systolic 152 mm Hg 12/15/19 Blood pressure diastolic 90 mm Hg 025 Heart Rate 76 /min 12/14/2024 Height 63.25 in 12/14/2024 BMI 31.77 kg/m2 12/14/2024 Encounters Encounter Location Date Provider Diagnosis [facility] [facility] 36 [facility] [address] [place] [id number] 12/14/2024 Gurjit Dc Essential hypertensi on I10 [...] Name:Gurjit Carlos er, 03/15/2025 01:15:00 PM, 1210 [facility] 36 [facility], [address], [place], [phone], Progress Notes * PEPE PARKDOB: 3 (64 yo F)Acc No.[id number]:12/14/2024 Progress Notes Patient: PEPE RODRIGUEZ Provider: Gurjit Dc M.D. :1960 A ge:64 Y S ex:Female Date:12/14/2024 Address:[address], [place], [id number] Subjective: * Chief Complaints: * 1 . 4 months. 2. Needs labs & mammogram. * HPI: C ardiology: The pt is here for a check up on Hypertension and hypothyroidism. Pt states she has had a UTI but that has improved with antibiotics she had from the [facility]. Pt is not fasting. 64 year old [...] Uterus, Anemia, Menorrhagia 03-24-09, hysterectomy 04/2009, [facility] ER - URI 04/22/17. * Family [...] * Images: Billing Information: * Visit Code: 55683 Office Visit, Est Pt., Level 4. * Procedure Codes: 33177 Urinalysis, no micro. 3077F SYST BP = 140 MM HG6 IT. 3080F DIAST BP = 90 MM HG. * Electronic signature of Gurjit Dc MD on 01/19/2025 at 01:36 PM EDT Sign off status: Pending * Provider: Gurjit Dc M.D. Date: 0 12/14/2024 Generated for Patricioi lucía/Monica/Lyndonransmitting on: 0 01/19/2025 01:36 PM EDT History and Physical [...]
--- OUTSIDE RECORDS SUMMARY | 2025-01-05 05:46 | XMS_ITS ---
Author Organization [facility] Address [address]10 [facility] 36 [facility] [address] [place] [phone] Care Team Providers Care Public Area Supervisor Name Role Phone Gurjit Dc Primary Care Provider [phone] REASON FOR VISIT due papi Encounters Encounter Location Date Provider Diagnosis Joe [address] [facility] [address] [place] [phone] 01/05/2025 Gurjit Dc Breast cancer screening Z12.31 Assessments Encounter Date Diagnosis (ICD Code) Assessment Notes Treatment Notes Treatment Clinical Notes Section Notes 01/05/2025 Breast cancer screening (ICD-10 - Z12.31) Plan Of Treatment Pending Test Test Name Order Date Mammogram 01/05/2025 Next Appt Details Provider Name:Gurjit Carlos er, 03/15/2025 01:15:00 PM, [facility], [address], [place], [phone], Progress Notes * PEPE PARKDOB: 3 (64 yo F)Acc No.[id number]:01/05/2025 Patient: VIVIANA RODRIGUEZLY :1960 A ge:64 Y S ex:Female Address:[address] [place] [address] Subjective: * Chief Complaints: * D ue papi * Medical History: * Surgical History: * Hospitalization/Major Diagno stic Procedure: * Medications: Objective: * Vitals: * Physical Examination: Assessment: * Assessment: 1. B reast cancer screening - Z12.31 (Primary) Plan: * Treatment: * Procedure Codes: * true * Date: Generated for Dusty castrejon/Monica/Christian on: 0 01/19/2025 01:37 PM EDT
--- OUTSIDE RECORDS SUMMARY | 2025-01-11 09:30 | XMS_ITS ---
Author Organization [facility] Address [address] [place] [phone] Care Team Providers Care Bpm Solution Architect Name Role Phone Gurjit Dc Primary Care Provider [phone] Allergies Allergen (clinical drug ingredient) Drug/Non Drug [...] day; Duration: 90 days Active Vital Signs Weight 180.4 lbs 01/11/2025 Blood pressure systolic 140 mm Hg 01/12/20 25 Blood pressure diastolic 90 mm Hg 025 Heart Rate 67 /min 01/11/2025 Height 63.25 in 01/11/2025 BMI 31.7 kg/m2 01/11/2025 Encounters Encounter Location Date Provider Diagnosis [facility] 36 [facility] [address] [place] [id number] 01/11/2025 Gurjit Dc Essential hypertensi on I10 [...] Name:Gurjit Carlos er, 03/15/2025 01:15:00 PM, [address] [facility] 36 [facility], [address], [place], [phone], Progress Notes * PEPE PARKDOB: 3 (64 yo F)Acc No.[id number]:01/11/2025 Progress Notes Patient: VIVIANA RODRIGUEZLY Provider: Gurjit [...] Fibroid Uterus, Anemia, Menorrhagia 03-24-09, hysterectomy 04/2009, [facility] ER - URI 04/22/17. * Family History: F ather: 64 yrs, diagnosed with Diabetes, Heart Disease. M other: alive 79 yrs.?2 sister(s) . 3 son(s) , 1 daughter(s) . . Mother with CAD, [place]. Father had CAD and diabetes. * Social [...] edema - R60.0? Plan: * Treatment: * Follow Up: 2 Months * Images: Billing Information: * Visit Code: 00206 Office Visit, Est Pt., Level 3. * Procedure Codes: * Electronic signature of Gurjit Dc MD on 01/19/2025 at 01:36 PM EDT Sign off status: Pending * Provider: Gurjit Dc M.D. Date: 01/11/2025 Generated for Dusty castrejon/Monica/eTransmitting on: 01/19/2025 01:36 PM EDT History and Physical Notes * Examination Category [...]
--- NOTE | 2025-01-19 13:35 | MM_ITS ---
PROCEDURE INFORMATION: Exam: MG Bilateral Screening 3D Mammography Exam date and time: 01/19/2025 1:45 PM Age: 64 years old Clinical indication: Screening examination TECHNIQUE: Imaging protocol: Bilateral Screening tomosynthesis and 2D mammography including computer-aided detection (CAD) when performed. COMPARISON: 1. MG MM DIG SCREENING MAMM BI W/CAD 08/29/2023 1:13 PM 2. MG MM DIG SCREENING MAMM BI W/CAD 04/30/2022 4:35 PM FINDINGS: MAMMOGRAPHY: Breast composition: There are scattered areas of fibroglandular density. Mass: No suspicious masses. Architectural distortion: None. Calcifications: No suspicious calcifications. Asymmetric density: None. Skin thickening: None. Axillary adenopathy: None. IMPRESSION: No mammographic evidence of malignancy. Annual screening is recommended unless otherwise clinically indicated. ASSESSMENT: BI-RADS Category 1: Negative.
--- OUTSIDE RECORDS SUMMARY | 2025-01-19 13:37 | XMS_ITS | Patient Health Record ---
Author Organization [facility] Address [address] [facility] [address] [place] [phone] Care Team Providers Care Medical Clerical Assistant Name Role Phone Gurjit Dc Primary Care Provider Cathy Ramos Unavailable [phone] Allergies Allergen (clinical drug ingredient) Drug/Non Drug Allergy documented on EMR Reaction Allergy Type Onset Date Status codeine Codeine Unknown Drug Allergy Active Results Component Value Reference Range Notes Urinalysis - Inhouse Reviewed date:12/15/2024 09:23:34 AM Interpretation: Performing Lab: Notes/Report: Color/Clarity yellow/clear Leuk Neg Nitrite Neg Urobili 16 Protein Neg pH 6.5 Blood Neg Sp. Gr. 1.020 Ketone Neg Bili Neg Gluc Neg P-Comprehensive Metabolic Pa navi (CMP) Reviewed date:08/13/2024 12:46:40 PM Interpretation:Normal Performing Lab: Notes/Report: CLIA: [id number] Jaciel Corrales MD, Men'S [employer] Boys[employer] Clothing Salesperson [facility] , [address], [place] [address] Test performed by [employer] Sodium 144 135-145 mmol/L Potassium 3.9 3.5-5.3 [...] 0.3 <0.2-1.2 mg/dL A/G Ratio 1.8 1.1-2.5 Medications Medication SIG (Take, Route, Frequency, Duration) Notes Start Date End Date Status Chlorthalidone 25 MG 1 tablet in the morning with food Orally daily; Duration: 30 days 01/11/2025 Active Celecoxib 200 MG 1 capsule with food Orally Once a day; Duration: 30 day(s) 06/10/2023 Active Alendronate Sodium 35 MG 1 tab(s) Orally once a week; Duration: 90 days Active Omeprazole 40 MG 1 cap(s) orally once a day Active Cyclobenzaprine HCl 5 MG 1 -2tab(s) oral ly 3 times a day prn 08/27/2022 Not-Taking Ondansetron 4 MG 1 tablet on the tongue and allow to dissolve Orally three times a day as needed; Duration: 10 day(s) 02/11/2023 Not-Taking MiraLax 17 GM/SCOOP 1 scoop mixed with [...] Once a day; Duration: 90 days Active Immunizations Vaccine Route Administration Date Status Comme nts COVID 19 Pfizer Unknown 10/26/2020 Administered Fluzone Quad (6months&older) IM Intramuscular 02/12/2018 Administered Problems Problem Type SNOMED Code ICD Code Onset Dates Problem Status W/U Status Risk Notes Problem Essential hypertension (36533040) Essential hypertension (I10) Active confirmed Problem Osteopenia (403735289) Osteopenia (M85.80) Active confirmed Problem BMI 30+ - obesity (637274687) BMI 32.0-32.9,adult (Z68.32) Active confirmed Problem Breathing painful (62179384) Rib pain on left side (R07.81) Active confirmed Problem Hyperlipidemia (22203891) Hyperlipidemia, unspecified (E78.5) Active confirmed Problem Acquired hypothyroidism (774729175) Acquired hypothyroidism (E03.9) Active confirmed Problem Gastroesophageal reflux disease with esophagitis (disorder) (305527196) GERD with esophagitis (K21.0) Active confirmed Problem Abnormal gait (21428113) Imbalance (R26.89) Active confirmed Problem Raised antinuclear antibody (385063747) SHONDA positive (R76.8) Active confirmed Problem Fibrocystic breast changes (79065665) Fibrocystic breast disease (FCBD), unspecified laterality (N60.19) Active confirmed Problem Plantar nerve lesion (335053121) 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) Active confirmed Vital Signs Heart Rate 67 /min 01/11/2025 Blood pressure diastolic 90 mm Hg 01/11/2025 Height 63.25 in 01/11/2025 Blood pressure systolic 140 mm Hg 01/11/2025 Weight 180.4 lbs 01/11/2025 BMI 31.7 kg/m2 01/11/2025 Encounters Encounter Location Date Provider Diagnosis [facility] [address] [place] [id number] 04/23/2024 Gurjit Dc Essential hypertensi on I10 ; Acquired hypothyroidism E03.9 and Lower abdominal pain R10.30 [facility] [address] [place] [id number] 08/06/2024 Gurjit Dc Essential hypertensi on I10 ; Acquired hypothyroidism E03.9 ; SHONDA positive R76.8 ; Hyperlipidemia, unspecified E78.5 and BMI 32.0-32.9,adult Z68.32 [facility] [address] [place] [id number] 10/14/2024 Cathy Crowdy Bug bite with infect ion, subsequent encounter W57.XXXD and Erythema L53.9 [facility] [address] [place], [place] [id number] 12/14/2024 Gurjit Dc Essential hypertensi on I10 and Acute UTI N39.0 [facility] [address] [facility] [address] [place] [id number] 01/11/2025 J Nathanael Dc Essential hypertensi on I10 and Localized edema R60.0 [facility] [address] [facility] [address] [place] [id number] 02/05/2024 Gurjit Dc Essential hypertensi on I10 [facility] [address] [facility] [address] [place], [place] [id number] 03/30/2024 Gurjit Dc Hyperlipidemia, unspecified E78.5 [facility] 12[address] [facility] [address] [place] [id number] 08/05/2024 J Nathanael Dc Osteopenia M85.80 an d Essential hypertension I10 [facility] [address] [facility] [address] [place] [id number] 01/05/2025 Gurjit Dc Breast cancer screen ing Z12.31 [facility] [address] [place], [place] [id number] 01/13/2025 J Nathanael Dc Osteopenia M85.80 Assessments Encounter Date Diagnosis (ICD Code) Assessment Notes Treatment Notes Treatment Clinical Notes Section Notes 02/05/2024 Essential hypertension (ICD-10 - I10) 03/30/2024 Hyperlipidemia, unspecified (ICD-10 - E78.5) 04/23/2024 Essential hypertension (ICD-10 - I10) 04/23/2024 Acquired hypothyroidism (ICD-10 - E03.9) 08/05/2024 Osteopenia (ICD-10 - M85.80) 08/06/2024 Essential hypertension (ICD-10 - I10) continue current therapy 10/14/2024 Erythema (ICD-10 - L53.9) 10/14/2024 Bug bite with infection, subsequent encounter (ICD-10 - W57.XXXD) Healing well, no further abx necessary. 12/14/2024 Essential hypertension (ICD-10 - I10) 12/14/2024 Acute UTI (ICD-10 - N39.0) 01/05/2025 Breast cancer screening (ICD-10 - Z12.31) 01/11/2025 Essential hypertension (ICD-10 - I10) 01/11/2025 Localized edema (ICD-10 - R60.0) 01/13/2025 Osteopenia (ICD-10 - M85.80) 08/06/2024 Acquired hypothyroidism (ICD-10 - E03.9) 08/06/2024 SHONDA positive (ICD-10 - R76.8) 04/23/2024 Lower abdominal pain (ICD-10 - R10.30) 08/05/2024 Essential hypertension (ICD-10 - I10) 08/06/2024 Hyperlipidemia, unspecified (ICD-10 - E78.5) 08/06/2024 BMI 32.0-32.9,adult (ICD-10 - Z68.32) Plan Of Treatment Pending Test Test Name Order Date Mammogram 01/05/2025 Next Appt Details Provider Name:Gurjit Huffman Terrance er, 03/15/2025 01:15:00 PM, [address] [facility] 36 [facility], [address], [place], [place], [phone], Insurance Providers Payer Name Payer Address Payer Phone Subscriber Number Group Number Insured Name Patient Relationship to Insured Coverage Start Date Coverage End Date [employer] [facility] [address] [place], [place] [id number] PEPE PARK Self - patient is the insured Medical (General) History Medical History History ICD Code deaf Surgical History Surgery Date(Month/Year) EGD 04/28 hysterectomy abdominal 04/2009 cholecystectomy 02-12-11 Hospitalization History Reason Date(Month/Year) [facility] ER - URI 04/22/17 hysterectomy 04/2009 Fibroid Uterus, Anemia, Menorrhagia 03-24 [facility], Gastro infection 07/11/2007
== END 2025-01-19 23:59 | disposition home or self-care (01) ==
LOC: RAD 13:31
PROVIDERS: PCP Family Medicine; Visit Provider Family Medicine
DX: Z12.31 Encounter for screening mammogram for malignant neoplasm of breast (principal); R92.323 Mammographic fibroglandular density, bilateral breasts
CPT/HCPCS: 77063; 77067

== ENCOUNTER 2025-03-07 10:33 | Emergency (ER) | payer OTHER, SELFPAY ==
--- OUTSIDE RECORDS SUMMARY | 2023-12-26 08:45 | XMS_ITS ---
[facility] Address [address] [place] [id number] Care Team Providers Care Powder Worker Tnt Name Role Phone Gurjit Dc Primary Care Provider Allergies Allergen (clinical drug ingredient) Drug/Non Drug Allergy documented on EMR Reaction Allergy Type Onset Date Status codeine Codeine Unknown Drug Allergy Active Results Component Value Reference Range Notes Cologuard Reviewed date:01/22/2024 03:50:34 PM Interpretation:Negative Performing Lab: Notes/Report: Negative Cologuard Negative P-Comprehensive Metabolic Pa navi (CMP) Reviewed date:01/01/2024 09:13:12 AM Interpretation: Performing Lab: Notes/Report: P-TSH Reviewed date:01/01/2024 09:13:25 AM Interpretation: Performing Lab: Notes/Report: Reason For Referral Reason positive SHONDA (LEARNING PROGRAM MANAGER) Diagnosis 1 Essential hypertensi on (I10) Diagnosis 2 SHONDA positive (R76.8) [facility]erring Provider First Name Gurjit Huffman Referring Provider Last Name Dao Referring Provider Speciality Family Pra ctice Referred Provider Specialty Rheumatology General Notes Mora Murry 2:19:19 PM > sent referral via Rheumatology website, Mora Murry 12/27/2023 12:56:51 PM > Rheumatology called and they do not accept the patient's insurance, Mora Murry 12/27/2023 1:14:36 PM > sent referral to [facility] Rheumatology Referral Priority Routine REASON FOR VISIT 4 months, Needs labs & colon cancer screening Medications Medication SIG (Take, Route, Frequency, Duration) Notes Start Date End Date Status Euthyrox 50 MCG 1 tab(s) orally once a day Active Ondansetron 4 MG 1 tablet on the tongue and allow to dissolve Orally three times a day as needed; Duration: 10 day(s) 02/11/2023 Not-Taking Alendronate Sodium 35 MG take 1 tablet b y mouth once a week; Duration: 90 days Active Cyclobenzaprine HCl 5 MG 1 -2tab(s) oral ly 3 times a day prn 08/27/2022 Not-Taking Omeprazole 40 MG 1 cap(s) orally once a day Active Pravastatin Sodium 20 MG 1 tablet Orally Once a day; Duration: 90 days Active Citracal +D3 250-107-500 MG-MG-UNIT 2 tab(s) chewed 2 times a day (with meals); Duration: 30 day(s) 06/03/2020 Active Celecoxib 200 MG 1 capsule with food Orally Once a day; Duration: 30 day(s) 06/10/2023 Active hydroCHLOROthiazide 12.5 MG 1 tablet in the morning Orally Once a day prn; Duration: 30 day(s) 10/10/2022 Not-Taking Lisinopril 10 MG 1 tablet Orally Once a day; Duration: 90 days Active Vital Signs Blood pressure systolic 130 mm Hg 12/26/19 24 Blood pressure diastolic 80 mm Hg 024 Heart Rate 71 /min 12/26/2023 Height 63.25 in 12/26/2023 Weight 179.8 lbs 12/26/2023 BMI 31.60 kg/m2 12/26/2023 Encounters Encounter Location Date Provider [facility] [address], [place] [id number] 12/26/2023 Gurjit Dc Essential hypertensi on I10 ; Acquired hypothyroidism E03.9 ; Osteopenia M85.80 ; GERD with esophagitis K21.0 ; Screen for colon cancer Z12.11 ; Multiple joint pain M25.50 and Positive SHONDA (antinuclear antibody) R76.8 Assessments Encounter Date Diagnosis (ICD Code) Assessment Notes Treatment Notes Treatment Clinical Notes Section Notes 12/26/2023 Essential hypertension (ICD-10 - I10) 12/26/2023 Acquired hypothyroidism (ICD-10 - E03.9) 12/26/2023 Osteopenia (ICD-10 - M85.80) 12/26/2023 GERD with esophagitis (ICD-10 - K21.0) 12/26/2023 Screen for colon cancer (ICD-10 - Z12.11) 12/26/2023 Multiple joint pain (ICD-10 - M25.50) 12/26/2023 Positive SHONDA (antinuclear antibody) (ICD-10 - R76.8) Plan Of Treatment Medication Medication Name Sig Start Date Stop Date Notes Lisinopril 10 MG 1 tablet Orally Once a day; Duration: 90 days Referrals Referral Date Details 12/26/2023 12/26/2023, positive SHONDA (LEARNING PROGRAM MANAGER) Next Appt Details Follow Up: 4 Months, Reason: Provider Name:Gurjit Carlos er, 03/15/2025 01:15:00 PM, [address], [address], [place], [place], [id number], Progress Notes * PEPE PARKDOB: [birth year] (64 yo F)Acc No.[id number]:12/26/2023 Progress Notes Patient: PEPE RODRIGUEZ Provider: Gurjit Dc M.D. :1960 A ge:63 Y S ex:Female Date:12/26/2023 Address:[address], [facility], [id number] Subjective: * Chief Complaints: * 1 . 4 months. 2. Needs labs & colon cancer screening. * HPI: C ardiology: The pt is here for a check up on Hypertension. Pt states she is still having heart burn and upset stomach at night. Pt states she thinks it could be due to the Pravastain. Pt states she is needing a refill for Celebrex and Lisinopril sent to [facility] in [place]. Denies : Chest Pain. D enies : Short of Breath. D enies : Dizziness. D enies : Palpitations. R heumatology: Positve SHONDA (positive LEARNING PROGRAM MANAGER) in April. No referral was made. * ROS: D ERMATOLOGY: no R chiquita. n o H debora. G ASTROENTEROLOGY: no N ausea. n o V omiting. n o D iarrhea.? U ROLOGY: no D ifficulty urinating. n o B lood in urine. * Medical History: D eaf. * Surgical History: E GD 04/28, hysterectomy abdominal 04/2009, cholecystectomy 02-12-11. * Hospitalization/Major Diagno stic Procedure: H [facility], Gastro infection 07/11/2007, Fibroid Uterus, Anemia, Menorrhagia 03-24-09, hysterectomy 04/2009, [facility] ER - URI 04/22/17. * Family History: F ather: 64 yrs, diagnosed with Diabetes, Heart Disease. M other: alive 78 yrs.?2 sister(s) . 3 son(s) , 1 daughter(s) . . Mother with CAD, [place]. Father had CAD and diabetes. * Social History: C URRENT TOBACCO USE S moking Status: Patient does NOT smoke. M arital Status: . Past smoking status: no, Smoking status: Does not smoke. * Medications: T aking Omeprazole 40 MG Capsule Delayed Release 1 cap(s) orally once a day , Taking Celecoxib 200 MG Capsule 1 capsule with food Orally Once a day , Taking Lisinopril 10 MG Tablet 1 tablet Orally Once a day , Taking Citracal +D3 250-107-500 MG-MG-UNIT Tablet Chewable 2 tab(s) chewed 2 times a day (with meals) , Taking Pravastatin Sodium 20 MG Tablet 1 tablet Orally Once a day , Taking Euthyrox 50 MCG Tablet 1 tab(s) orally once a day , Taking Alendronate Sodium 35 MG Tablet take 1 tablet by mouth once a week , Not-Taking Ondansetron 4 MG Tablet Disintegrating 1 tablet on the tongue and allow to dissolve Orally three times a day as needed , Not-Taking hydroCHLOROthiazide 12.5 MG Tablet 1 tablet in the morning Orally Once a day prn , Not-Taking Cyclobenzaprine HCl 5 MG Tablet 1 -2tab(s) orally 3 times a day prn , Medication List reviewed and reconciled with the patient * Allergies: C marilyn. Objective: * Vitals: W t:179.8, Temp:98.0, BP:130/80, HR:71, Nurse:JOSHUA, Ht: 63.25, BMI:31.60. * Examination: G eneral Examination: General Appearance: N AD. H EENT: u nremarkable, no nystagmus, TM's normal. O ral cavity: n o lesions, mucosa moist and WNL, no erythema. N petra: s upple, no lymphadenopathy, no carotid bruits. C hest: n ormal shape and expansion. H eart: R SR. L ungs: c lear to auscultation. A bdomen: soft and nontender, no organomegaly or masses. N eurologic Exam: I ntact, gait normal. S kin: n ormal, no rash. P eripheral pulses: n ormal . B ack: m ild dorsal kyphosis. E xtremities: t race leg edema, Pulses and capillary refill intact.. Assessment: * Assessment: 1. E ssential hypertension - I10 (Primary) 2 . A cquired hypothyroidism - E03.9 3 . O steopenia - M85.80 4 . G ERD with esophagitis - K21.0 5 . S creen for colon cancer - Z12.11 6 . M ultiple joint pain - M25.50 7 . P ositive SHONDA (antinuclear antibody) - R76.8 ? Plan: * Treatment: ? Referral To:Rheumatology ?Reason:positiveANA (LEARNING PROGRAM MANAGER) 2.?Acquired hypothyroidism?LAB: P-TSH (Collection Date & Time - 01/01/2024)* see duplicate order 3.?Screen for colon cancer?LAB: Keshia (Collection Date & Time - 01/16/2024)?Negative* Value Reference Range C josiah Negative * Denise Colvin 01/03/2024 4:25 :53 PM > order Ashwini Herrera 01/22/2024 3:50:29 PM > , Patient informed of normal results. 4.?Others? Referral To:Rheumatology ?Reason:positiveANA (LEARNING PROGRAM MANAGER) * Follow Up: 4 Months * Images: Billing Information: * Visit Code: 26211 Office Visit, Est Pt., Level 4. * Procedure Codes: * Electronic signature of Gurjit Dc MD on 03/07/2025 at 10:54 AM EST Sign off status: Pending * Provider: Gurjit Dc M.D. Date: 0 12/26/2023 Generated for Dusty castrejon/Monica/Christian on: 1 05/07/2024 10:54 AM EST History and Physical Notes * HPI (History of Present Illness) Category Sub-Category Detail Notes Category Not es Cardiology Short of Breath Chest Pain Palpitations Dizziness Examination Category Sub-Category Detail Notes Category Not es General Examination HEENT: unremarkable , no nystagmus, TM's normal Heart: RSR Lungs: clear to auscultatio n Abdomen: soft and nontender, no organomegaly or masses Extremities: trace leg edema, Pul ses and capillary refill intact. General Appearance: NAD Skin: normal, no rash Neurologic Exam: Intact, gait normal Neck: supple, no lymphaden opathy, no carotid bruits Oral cavity: no lesions, mucosa m oist and WNL, no erythema Peripheral pulses: normal Back: mild dorsal kyphosis Chest: normal shape and exp ansion Consultation Request Notes Referral Date Referring Provider Referred Provider Not es 12/26/2023 Gurjit Dc , positive A NA (LEARNING PROGRAM MANAGER)
--- OUTSIDE RECORDS SUMMARY | 2023-12-27 05:15 | XMS_ITS ---
Author Organization [facility] Address [address] [facility] [address] [place] [id number] Care Team Providers Care Central Office Repairer Name Role Phone Gurjit Dc Primary Care Provider [phone] Results Component Value Reference Range Notes P-Comprehensive Metabolic Pa navi (CMP) Reviewed date:01/01/2024 04:01:08 PM Interpretation:satisfactory Performing Lab: Notes/Report: CLIA: [id number] Jaciel Corrales MD, Valve Machine Operator [address] [place] [address] , [address], [place] [address] Test performed by [facility] Sodium 144 135-145 mmol/L Potassium 4.5 3.5-5.3 mmol/L Chloride 106 97-108 mmol/L CO2 28 22-32 mmol/L Glucose 109 65-99 mg/dL BUN 13 8-23 mg/dL Creatinine 0.66 0.50-1.00 mg/dL Calcium 9.5 8.6-10.4 mg/dL eGFR by Creatinine 100 >59 mL/min/1.73m2 Protein 6.5 6.0-8.3 g/dL Albumin 4.3 3.5-5.3 g/dL Alkaline Phosphatase 63 35-121 IU/L ALT (SGPT) 30 <5-47 IU/L AST (SGOT) 25 <5-40 IU/L Bilirubin, Total 0.5 <0.2-1.2 mg/dL A/G Ratio 2.0 1.1-2.5 P-TSH Reviewed date:01/01/2024 04:01:08 PM Interpretation:Normal Performing Lab: Notes/Report: Test performed by [facility] [address] [place] [address] , [address], [place] [address] Jaciel Corrales MD, Valve Machine Operator CLIA: [id number] TSH 2.05 0.43-5.25 mU/L REASON FOR VISIT blood work Encounters Encounter Location Date Provider Diagnosis [facility] [address] [facility] [address] [facility] [address] [place] [phone] 12/27/2023 Gurjit Dc Essential hypertensi on I10 and Acquired hypothyroidism E03.9 Assessments Encounter Date Diagnosis (ICD Code) Assessment Notes Treatment Notes Treatment Clinical Notes Section Notes 12/27/2023 Essential hypertension (ICD-10 - I10) 12/27/2023 Acquired hypothyroidism (ICD-10 - E03.9) Plan Of Treatment Next Appt Details Provider Name:Gurjit Carlos er, 03/15/2025 01:15:00 PM, [address] [facility] [address] [facility], [address], [place], [id number], Progress Notes * PEPE PARKDOB: [birth year] (64 yo F)Acc No.[id number]:12/27/2023 Patient: PEPE RODRGIUEZ Provider: Gurjit Dc M.D. :1960 A ge:63 Y S ex:Female Date:12/27/2023 [address] , [id number] Subjective: * Chief Complaints: * 1 . Blood work. * Medical History: Objective: * Vitals: Assessment: * Assessment: 1. E ssential hypertension - I10 2 . A cquired hypothyroidism - E03.9 ? Plan: * Treatment: Value Reference Range A /G Ratio 2.0 1.1-2.5 - * A lbumin 4.3 3.5-5.3 - g/dL * A lkaline Phosphatase 63 35-121 - IU/L * A LT (SGPT) 30 <5-47 - IU/L * A ST (SGOT) 25 <5-40 - IU/L * B ilirubin, Total 0.5 <0.2-1.2 - mg/dL * B UN 13 8-23 - mg/dL * C alcium 9.5 8.6-10.4 - mg/dL * C hloride 106 97-108 - mmol/L * C O2 28 22-32 - mmol/L * C reatinine 0.66 0.50-1.00 - mg/dL * G lucose 109 H 65-99 - mg/dL * P otassium 4.5 3.5-5.3 - mmol/L * S odium 144 135-145 - mmol/L * P rotein 6.5 6.0-8.3 - g/dL * e GFR by Creatinine 100 >59 - mL/min/1.73m2 * Ashwini Buckley Angie 01/01/2024 4:0 0:59 PM >Patient informed of normal results. 2.?Acquired hypothyroidism?LAB: P-TSH (Collection Date & Time - 12/27/2023 09:00 AM)?Normal* Value Reference Range T SH 2.05 0.43-5.25 - mU/L * Ashwini Buckley Angie 01/01/2024 4:0 0:59 PM >Patient informed of normal results. * Images: Billing Information: * Visit Code: * Procedure Codes: * Electronic signature of Gurjit Dc MD on 03/07/2025 at 10:55 AM EST Sign off status: Pending * Provider: Gurjit Dc M.D. Date: 0 12/27/2023 Generated for Dusty castrejon/Monica/eTransmitting on: 1 05/07/2024 10:55 AM EST
--- OUTSIDE RECORDS SUMMARY | 2024-04-23 08:30 | XMS_ITS ---
[facility] [address] [place] [id number] Care Team Providers Care Touch Up Painter Name Role Phone Gurjit Dc Primary Care Provider Allergies Allergen (clinical drug ingredient) Drug/Non Drug Allergy documented on EMR Reaction Allergy Type Onset Date Status codeine Codeine Unknown Drug Allergy Active Reason For Referral Reason abdominal pain, hist ory of colitis Diagnosis 1 Lower abdominal pain (R10.30) [facility] Referring Provider First Name Gurjit Huffman Referring Provider Last Name Dao Referring Provider Speciality Family Pra ctice Referred Provider ABBI CHEN Referred Provider Specialty Gastroentero logy General Notes Mora Murry 2:04:13 PM > faxed to Dr. Chen office, Mora Murry 05/06/2024 10:47:10 AM > 05/14/2023 at 01:00pm Referral Priority Routine REASON FOR VISIT 4 months Medications Medication SIG (Take, Route, Frequency, Duration) Notes Start Date End Date Status Alendronate Sodium 35 MG take 1 tablet b y mouth once a week; Duration: 90 days Active Citracal +D3 250-107-500 MG-MG-UNIT 2 tab(s) chewed 2 times a day (with meals); Duration: 30 day(s) 06/03/2020 Active Pravastatin Sodium 20 MG 1 tablet Orally Once a day; Duration: 90 days Active Lisinopril 10 MG 1 tablet Orally Once a day; Duration: 90 days Active Euthyrox 50 MCG 1 tab(s) orally once a day Active Cyclobenzaprine HCl 5 MG 1 -2tab(s) oral ly 3 times a day prn 08/27/2022 Not-Taking Align 4 MG as directed Orally 04/23/2024 Active Celecoxib 200 MG 1 capsule with food Orally Once a day; Duration: 30 day(s) 06/10/2023 Active Omeprazole 40 MG 1 cap(s) orally once a day Active MiraLax 17 GM/SCOOP 1 scoop mixed with 8 ounces of fluid Orally Once a day; Duration: 30 day(s) 04/23/2024 Active hydroCHLOROthiazide 12.5 MG 1 tablet in the morning Orally Once a day prn; Duration: 30 day(s) 10/10/2022 Not-Taking Ondansetron 4 MG 1 tablet on the tongue and allow to dissolve Orally three times a day as needed; Duration: 10 day(s) 02/11/2023 Not-Taking Vital Signs Blood pressure systolic 160 mm Hg 04/23/19 25 Blood pressure diastolic 90 mm Hg 025 Heart Rate 71 /min 04/23/2024 Height 63.25 in 04/23/2024 Weight 183.6 lbs 04/23/2024 BMI 32.26 kg/m2 04/23/2024 Encounters Encounter Location Date Provider Diagnosis [facility] [address] [facility] [address] [place], [place] [id number] 04/23/2024 Gurjit Dc Essential hypertensi on I10 ; Acquired hypothyroidism E03.9 and Lower abdominal pain R10.30 Assessments Encounter Date Diagnosis (ICD Code) Assessment Notes Treatment Notes Treatment Clinical Notes Section Notes 04/23/2024 Essential hypertension (ICD-10 - I10) 04/23/2024 Acquired hypothyroidism (ICD-10 - E03.9) 04/23/2024 Lower abdominal pain (ICD-10 - R10.30) Plan Of Treatment Medication Medication Name Sig Start Date Stop Date Notes Align 4 MG as directed Orally 04/23/2024 MiraLax 17 GM/SCOOP 1 scoop mixed with 8 ounces of fluid Orally Once a day; Duration: 30 day(s) 04/23/2024 Referrals Referral Date Details 04/23/2024 04/23/2024, abdomina l pain, history of colitis, ABBI CHEN Next Appt Details Follow Up: 3 Months, Reason: Provider Name:Gurjit Carlos er, 03/15/2025 01:15:00 PM, [address], [address], [place], [place], [id number], Progress Notes * PEPE PARKDOB: 3 (64 yo F)Acc No.[id number]:04/23/2024 Progress Notes Patient: PEPE RODRIGUEZ Provider: Gurjit Dc M.D. :1960 A ge:63 Y S ex:Female Date:04/23/2024 Address:[address], [place], [id number] Subjective: * Chief Complaints: * 1 . 4 months. * HPI: C ardiology: The patient is here for a check up on Hypertension and GERD. Pt states she is still having pain in her lower abdomen. Pt states she did have diarrhea the week of . Pt states she is needing a refill for Levothyroxine and Celebrex sent to [facility] in [place]. Denies : Chest Pain. D enies : Short of Breath. D enies : Dizziness. D enies : Palpitations. G astroenterology: [address] Cavazos with diagnosis of hemorrhagic colitis. She denies any blood in stool recently. NEGATIVE COLOGUARD 12/2023. * ROS: D ERMATOLOGY: no R chiquita. [...] Fibroid Uterus, Anemia, Menorrhagia 03-24-09, hysterectomy 04/2009, [facility] ER - URI 04/22/17. * Family History: F ather: 64 yrs, diagnosed with Diabetes, Heart Disease. M other: alive 79 yrs.?2 sister(s) . 3 son(s) , 1 daughter(s) . . Mother with CAD, [place]. Father had CAD and diabetes. * Social [...] food Orally Once a day , Taking Citracal +D3 250-107-500 MG-MG-UNIT Tablet Chewable 2 tab(s) chewed 2 times a day (with meals) , Taking Alendronate Sodium 35 MG Tablet take 1 tablet by mouth once a week , Taking Lisinopril 10 MG Tablet 1 tablet Orally Once a day , Taking Pravastatin Sodium 20 MG Tablet 1 tablet Orally Once a day , Taking Euthyrox 50 MCG Tablet 1 tab(s) orally once a day , Not-Taking Ondansetron 4 MG Tablet Disintegrating [...] reconciled with the patient * Allergies: C rossanaeine. Objective: * Vitals: W t:183.6, Temp:98.4, BP:160/90, HR:71, Nurse:JOSHUA, Ht: 63.25, Repeat BP:152/84, BMI:32.26. * Examination: G eneral Examination: General Appearance: [...] ack: m ild dorsal kyphosis. E xtremities: m inimal l eg edema. Assessment: * Assessment: 1. E ssential hypertension - I10 (Primary) 2 . A cquired hypothyroidism - E03.9 3 . L ower abdominal pain - R10.30 Plan: * Treatment: 2. L ower abdominal pain Referral To:ABBI CHEN Gastroenterology Reason:abdominal pain, history of colitis * Follow Up: 3 Months * Images: Billing Information: * Visit Code: 99345 Office Visit, Est Pt., Level 4. * Procedure Codes: * Electronic signature of Gurjit Dc MD on 03/07/2025 at 10:55 AM EST Sign off status: Pending * Provider: Gurjit Dc M.D. Date: 0 04/23/2024 Generated for Patricioi lucía/Monica/eTransmitting on: 05/07/2024 10:55 AM EST History and Physical Notes * HPI (History of Present Illness) Category Sub-Category Detail Notes Category Not es Cardiology Short of Breath Chest Pain Palpitations Dizziness Examination Category Sub-Category Detail Notes Category Not es General Examination HEENT: unremarkable , no nystagmus, TM's normal Heart: RSR Lungs: clear to auscultatio n Abdomen: soft and nontender, no organomegaly or masses Extremities: minimal leg edema General Appearance: NAD Skin: normal, no rash Neurologic Exam: Intact, gait normal Neck: supple, no lymphaden opathy, no carotid bruits Oral cavity: no lesions, mucosa m oist and WNL, no erythema Peripheral pulses: normal Back: mild dorsal kyphosis Chest: normal shape and exp ansion Consultation Request Notes Referral Date Referring Provider Referred Provider Not es 04/23/2024 Gurjit Dc EARL abdominal pain, history of colitis
--- OUTSIDE RECORDS SUMMARY | 2024-08-06 11:00 | XMS_ITS ---
Author Organization [facility] Address [address] [facility] [address] [place] [id number] Care Team Providers Care Drying And Winding Supervisor Name Role Phone Gurjit Dc Primary Care Provider Allergies Allergen (clinical drug ingredient) Drug/Non Drug Allergy documented on EMR Reaction Allergy Type Onset Date Status codeine Codeine Unknown Drug Allergy Active Results Component Value Reference Range Notes P-Comprehensive Metabolic Pa navi (CMP) Reviewed date:08/13/2024 12:46:40 PM Interpretation:Normal Performing Lab: Notes/Report: Test performed by [facility] , [address], [place] [address] Jaciel Corrales MD, Android Developer CLIA: [id number] Sodium 144 135-145 mmol/L Potassium 3.9 3.5-5.3 mmol/L Chloride 105 97-108 mmol/L CO2 24 22-32 mmol/L Glucose 105 65-99 mg/dL BUN 12 8-23 mg/dL Creatinine 0.74 0.50-1.00 mg/dL Calcium 9.6 8.6-10.4 mg/dL eGFR by Creatinine 92 >59 mL/min/1.73m2 Protein 6.8 6.0-8.3 g/dL Albumin 4.4 3.5-5.3 g/dL Alkaline Phosphatase 73 35-121 IU/L ALT (SGPT) 38 <5-47 IU/L AST (SGOT) 23 <5-40 IU/L Bilirubin, Total 0.3 <0.2-1.2 mg/dL A/G Ratio 1.8 1.1-2.5 REASON FOR VISIT 3 months, Needs labs & mammogram due in August Medications Medication SIG (Take, Route, Frequency, Duration) Notes Start Date End Date Status Alendronate Sodium 35 MG 1 tab(s) Orally once a week; Duration: 90 days Active Lisinopril 10 MG 1 tablet Orally Once a day; Duration: 90 days Active MiraLax 17 GM/SCOOP 1 scoop mixed with 8 ounces of fluid Orally Once a day; Duration: 30 day(s) 04/23/2024 Active Align 4 MG as directed Orally 04/23/2024 Active Citracal +D3 250-107-500 MG-MG-UNIT 2 tab(s) chewed 2 times a day (with meals); Duration: 30 day(s) 06/03/2020 Active Cyclobenzaprine HCl 5 MG 1 -2tab(s) oral ly 3 times a day prn 08/27/2022 Not-Taking Pravastatin Sodium 20 MG 1 tablet Orally Once a day; Duration: 90 days Active Euthyrox 50 MCG 1 tab(s) orally once a day Active Omeprazole 40 MG 1 cap(s) orally once a day Active Celecoxib 200 MG 1 capsule with food Orally Once a day; Duration: 30 day(s) 06/10/2023 Active Ondansetron 4 MG 1 tablet on the tongue and allow to dissolve Orally three times a day as needed; Duration: 10 day(s) 02/11/2023 Not-Taking hydroCHLOROthiazide 12.5 MG 1 tablet in the morning Orally Once a day prn; Duration: 30 day(s) 10/10/2022 Not-Taking Problems Problem Type SNOMED Code ICD Code Onset Dates Problem Status W/U Status Risk Notes Problem BMI 30+ - obesity (549148027) BMI 32.0-32.9,a dult (Z68.32) Active confirmed Vital Signs Blood pressure systolic 122 mm Hg 08/07/19 25 Blood pressure diastolic 92 mm Hg 025 Heart Rate 71 /min 08/06/2024 Height 63.25 in 08/06/2024 Weight 182.2 lbs 08/06/2024 BMI 32.02 kg/m2 08/06/2024 Encounters Encounter Location Date Provider Diagnosis [facility] [address] [facility] [address] [place], [place] [id number] 08/06/2024 Gurjit Dc Essential hypertensi on I10 ; Acquired hypothyroidism E03.9 ; SHONDA positive R76.8 ; Hyperlipidemia, unspecified E78.5 and BMI 32.0-32.9,adult Z68.32 Assessments Encounter Date Diagnosis (ICD Code) Assessment Notes Treatment Notes Treatment Clinical Notes Section Notes 08/06/2024 Essential hypertension (ICD-10 - I10) continue current therapy 08/06/2024 Acquired hypothyroidism (ICD-10 - E03.9) 08/06/2024 SHONDA positive (ICD-10 - R76.8) 08/06/2024 Hyperlipidemia, unspecified (ICD-10 - E78.5) 08/06/2024 BMI 32.0-32.9,adult (ICD-10 - Z68.32) Plan Of Treatment Medication Medication Name Sig Start Date Stop Date Notes Pravastatin Sodium 20 MG 1 tablet Orally Once a day; Duration: 90 days Euthyrox 50 MCG 1 tab(s) orally once a day Treatment Notes Assessment Notes Essential hypertension continue current therapy Next Appt Details Follow Up: 4 Months, Reason: Provider Name:Gurjit Carlos er, 03/15/2025 01:15:00 PM, [address] [facility] [address] [facility], [address], [place], [place], [id number], Progress Notes * NASH VIVIANAGAILDOB: 3 (64 yo F)Acc No.[id number]:08/06/2024 Progress Notes Patient: PEPE RODRIGUEZ Provider: Gurjit Dc M.D. :1960 A ge:63 Y S ex:Female Date:08/06/2024 Address:[address] [facility], [facility] Subjective: * Chief Complaints: * 1 . 3 months. 2. Needs labs & mammogram due in August. * HPI: H PI: 63 year old female presents with c/o Patient is here today for?Pt is here today for a 3 month check up. Pt states she is doing better and denies any new concerns today. * ROS: D ERMATOLOGY: no R chiquita. [...] Fibroid Uterus, Anemia, Menorrhagia 03-24-09, hysterectomy 04/2009, [facility] ER - URI 04/22/17. * Family History: F ather: 64 yrs, diagnosed with Diabetes, Heart Disease. M other: alive 79 yrs.?2 sister(s) . 3 son(s) , 1 daughter(s) . . Mother with CAD, [place]. Father had CAD and diabetes. * Social [...] tab(s) orally once a day , Taking Align 4 MG Capsule as directed Orally , Taking MiraLax 17 GM/SCOOP Powder 1 scoop mixed with 8 ounces of fluid Orally Once a day , Taking Alendronate Sodium 35 MG Tablet 1 tab(s) Orally once a week , Taking Lisinopril 10 MG Tablet 1 tablet Orally Once a day , Not-Taking Ondansetron 4 MG [...] reconciled with the patient * Allergies: C odeine. Objective: * Vitals: W t:182.2, Temp:97.8, BP:122/92, HR:71, Nurse:JLJ, Ht: 63.25, BMI:32.02. * Examination: G eneral Examination: General Appearance: [...] dorsal kyphosis. E xtremities: t race leg edema. Assessment: * Assessment: 1. E ssential hypertension - I10 (Primary) 2 . A cquired hypothyroidism - E03.9 3 . A NA positive - R76.8 4 . H yperlipidemia, unspecified - E78.5 5 . B NE 32.0-32.9,adult - Z68.32 Plan: * Treatment: Value Reference Range A /G Ratio 1.8 1.1-2.5 - * A lbumin 4.4 3.5-5.3 - g/dL * A lkaline Phosphatase 73 35-121 - IU/L * A LT (SGPT) 38 <5-47 - IU/L * A ST (SGOT) 23 <5-40 - IU/L * B ilirubin, Total 0.3 <0.2-1.2 - mg/dL * B UN 12 8-23 - mg/dL * C alcium 9.6 8.6-10.4 - mg/dL * C hloride 105 97-108 - mmol/L * C O2 24 22-32 - mmol/L * C reatinine 0.74 0.50-1.00 - mg/dL * G lucose 105 H 65-99 - mg/dL * P otassium 3.9 3.5-5.3 - mmol/L * S odium 144 135-145 - mmol/L * P rotein 6.8 6.0-8.3 - g/dL * e GFR by Creatinine 92 >59 - mL/min/1.73m2 * Ashwini Buckley 08/13/2024 12 :46:30 PM > Patient informed of normal results. Notes: continue current therapy??2.?Acquired hypothyroidism? Refill Euthyrox Tablet, 50 MCG, 1 tab(s), orally, once a day, 90, Refills 1.?? 3.?Hyperlipidemia, unspecified? Refill Pravastatin Sodium Tablet, 20 MG, 1 tablet, Orally, Once a day, 90 days, 90 Tablet, Refills 1.?? * Procedure Codes: 3 074F SYST BP LT 130 MM HG, 3080F DIAST BP = 90 MM HG * Follow Up: 4 Months * Images: Billing Information: * Visit Code: 40276 Office Visit, Est Pt., Level 3. * Procedure Codes: 3074F SYST BP LT 130 MM HG. 3080F DIAST BP = 90 MM HG. * Electronic signature of Gurjit Dc MD on 03/07/2025 at 10:56 AM EST Sign off status: Pending * Provider: Gurjit Dc M.D. Date: 0 08/06/2024 Generated for Dusty castrejon/Monica/eTransmitting on: 1 05/07/2024 10:56 AM EST History and Physical Notes * HPI (History of Present Illness) Category Sub-Category Detail Notes Category Not es HPI Patient is here today for Pt is here today for a 3 month check up. Pt states she is doing better and denies any new concerns today Examination Category Sub-Category Detail Notes Category Not es General Examination HEENT: unremarkable , no nystagmus, TM's normal Heart: RSR Lungs: clear to auscultatio n Abdomen: soft and nontender, no organomegaly or masses Extremities: trace leg edema General Appearance: NAD Skin: normal, no rash Neurologic Exam: Intact, gait normal Neck: supple, no lymphaden opathy, no carotid bruits Oral cavity: no lesions, mucosa m oist and WNL, no erythema Peripheral pulses: normal Back: mild dorsal kyphosis Chest: normal shape and exp ansion
--- OUTSIDE RECORDS SUMMARY | 2024-10-14 06:30 | XMS_ITS ---
Author Organization [facility] Address [address] [facility] [address] [place] [id number] Care Team Providers Care Glaze Sprayer Name Role Phone Gurjit Dc Primary Care Provider [phone] Cathy Ramos Unavailable [phone] Allergies Allergen (clinical drug ingredient) Drug/Non Drug Allergy documented on EMR Reaction Allergy Type Onset Date Status codeine Codeine Unknown Drug Allergy Active REASON FOR VISIT bug bite right arm Medications Medication SIG (Take, Route, Frequency, Duration) Notes Start Date End Date Status Euthyrox 50 MCG 1 tab(s) orally once a day Active Pravastatin Sodium 20 MG 1 tablet Orally Once a day; Duration: 90 days Active Ondansetron 4 MG 1 tablet on the tongue and allow to dissolve Orally three times a day as needed; Duration: 10 day(s) 02/11/2023 Not-Taking hydroCHLOROthiazide 12.5 MG 1 tablet in the morning Orally Once a day prn; Duration: 30 day(s) 10/10/2022 Not-Taking Cyclobenzaprine HCl 5 MG 1 -2tab(s) oral ly 3 times a day prn 08/27/2022 Not-Taking Alendronate Sodium 35 MG 1 tab(s) Orally once a week; Duration: 90 days Active Lisinopril 10 MG 1 tablet Orally Once a day; Duration: 90 days Active Citracal +D3 250-107-500 MG-MG-UNIT 2 tab(s) chewed 2 times a day (with meals); Duration: 30 day(s) 06/03/2020 Active Align 4 MG as directed Orally 04/23/2024 Active MiraLax 17 GM/SCOOP 1 scoop mixed with 8 ounces of fluid Orally Once a day; Duration: 30 day(s) 04/23/2024 Active Omeprazole 40 MG 1 cap(s) orally once a day Active Celecoxib 200 MG 1 capsule with food Orally Once a day; Duration: 30 day(s) 06/10/2023 Active Vital Signs Blood pressure systolic 120 mm Hg 10/15/19 Blood pressure diastolic 84 mm Hg 025 Heart Rate 74 /min 10/14/2024 Height 63.25 in 10/14/2024 Weight 180.8 lbs 10/14/2024 BMI 31.77 kg/m2 10/14/2024 Encounters Encounter Location Date Provider Diagnosis [facility] [address] [place] [id number] 10/14/2024 Cathy Ramos Bug bite with infection, subsequent encounter W57.XXXD and Erythema L53.9 Assessments Encounter Date Diagnosis (ICD Code) Assessment Notes Treatment Notes Treatment Clinical Notes Section Notes 10/14/2024 Bug bite with infection, subsequent encounter (ICD-10 - W57.XXXD) Healing well, no further abx necessary. 10/14/2024 Erythema (ICD-10 - L53.9) Plan Of Treatment Treatment Notes Assessment Notes Bug bite with infection, subsequent enco unter Healing well, no further abx necessary. Next Appt Details Follow Up: prn, Reason: Provider Name:Gurjit Carlos er, 03/15/2025 01:15:00 PM, [address], [address], [place], [phone], Progress Notes * PEPE PARKDOB: 3 (64 yo F)Acc No.[id number]:10/14/2024 Progress Notes Patient: VIVIANA RODRIGUEZLY Provider: TONIA Tijerina :1960 A ge:63 Y S ex:Female Date:10/14/2024 Address:[address], [id number] Pcp:Gurjit Dc Subjective: * Chief Complaints: * 1 . Bug bite right arm. * HPI: D ermatology: 63 year old female presents with c/o bug bites T he pt is here for a follow-up on bug bite of the right forearm. Pt states the site was very red and swollen last week, and she went to the [facility]. Pt was given antibiotic and a cream. Pt states the site is doing much better. * ROS: D ERMATOLOGY: no R chiquita. [...] Fibroid Uterus, Anemia, Menorrhagia 03-24-09, hysterectomy 04/2009, [facility] ER - URI 04/22/17. * Family History: F ather: 64 yrs, diagnosed with Diabetes, Heart Disease. M other: alive 79 yrs.?2 sister(s) . 3 son(s) , 1 daughter(s) . . Mother with CAD, [place]. Father had CAD and diabetes. * Social [...] times a day (with meals) , Taking Align 4 MG Capsule as [...] tab(s) orally once a day , Taking Pravastatin Sodium 20 MG Tablet 1 tablet Orally Once a day , Not-Taking Ondansetron 4 MG Tablet Disintegrating 1 tablet on the tongue and allow to dissolve Orally three times a day as needed , Not-Taking hydroCHLOROthiazide 12.5 MG Tablet 1 tablet in the morning Orally Once a day prn , Not-Taking Cyclobenzaprine HCl 5 MG Tablet 1 - 2tab(s) orally 3 times a day prn , Medication List reviewed and reconciled with the patient * Allergies: C odeine. Objective: * Vitals: W t: 180.8, Temp: 98.2, BP: 120/84, HR: 74, Nurse: JOSHUA, Ht: 63.25, BMI:31.77. * Examination: G eneral Examination: General Appearance: N AD. C hest: n ormal shape and expansion. H eart: R SR. L ungs: c lear to auscultation. S kin: r ight forearm with no further erythema, the bite kyleigh is not even visible. Assessment: * Assessment: 1. E rythema - L53.9 (Primary) S pecify :Resolved 2 . B ug bite with infection, subsequent encounter - W57.XXXD Plan: * Treatment: * Follow Up: p rn * Images: Billing Information: * Visit Code: 26003 Office Visit, Est Pt., Level 3. * Procedure Codes: * Electronic signature of TONIA Kaur on 03/07/2025 at 10:54 AM EST Sign off status: Pending * Provider: TONIA Tijerina Date: 0 10/14/2024 Generated for Dusty castrejon/Monica/eTransmitting on: 1 05/07/2024 10:54 AM EST History and Physical Notes * HPI (History of Present Illness) Category Sub-Category Detail Notes Category Not es Dermatology bug bites The pt is here f or a follow-up on bug bite of the right forearm. Pt states the site was very red and swollen last week, and she went to the [facility]. Pt was given antibiotic and a cream. Pt states the site is doing much better Examination Category Sub-Category Detail Notes Category Not es General Examination Heart: RSR Lungs: clear to auscultatio n General Appearance: NAD Skin: right forearm with n o further erythema, the bite kyleigh is not even visible Chest: normal shape and exp ansion
--- OUTSIDE RECORDS SUMMARY | 2024-12-14 10:00 | XMS_ITS ---
Author Organization [facility] Address [address] [facility] [address] [place] [phone] Care Team Providers Care Preparatory Technician Name Role Phone Gurjit Dc Primary Care Provider Allergies Allergen (clinical drug ingredient) Drug/Non Drug Allergy documented on EMR Reaction Allergy Type Onset Date Status codeine Codeine Unknown Drug Allergy Active Results Component Value Reference Range Notes Urinalysis - Inhouse Reviewed date:12/15/2024 09:23:34 AM Interpretation: Performing Lab: Notes/Report: Color/Clarity yellow/clear Leuk Neg Nitrite Neg Urobili 16 Protein Neg pH 6.5 Blood Neg Sp. Gr. 1.020 Ketone Neg Bili Neg Gluc Neg REASON FOR VISIT 4 months, Needs labs & mammogram Medications Medication SIG (Take, Route, Frequency, Duration) Notes Start Date End Date Status Pravastatin Sodium 20 MG 1 tablet Orally Once a day; Duration: 90 days Active Euthyrox 50 MCG 1 tab(s) orally once a day Active Lisinopril 10 MG 1 tablet Orally Once a day; Duration: 90 days Active Cyclobenzaprine HCl 5 MG 1 -2tab(s) oral ly 3 times a day prn 08/27/2022 Not-Taking Ondansetron 4 MG 1 tablet on the tongue and allow to dissolve Orally three times a day as needed; Duration: 10 day(s) 02/11/2023 Not-Taking Alendronate Sodium 35 MG 1 tab(s) Orally once a week; Duration: 90 days Active MiraLax 17 GM/SCOOP 1 scoop mixed with 8 ounces of fluid Orally Once a day; Duration: 30 day(s) 04/23/2024 Active Align 4 MG as directed Orally 04/23/2024 Active Citracal +D3 250-107-500 MG-MG-UNIT 2 tab(s) chewed 2 times a day (with meals); Duration: 30 day(s) 06/03/2020 Active hydroCHLOROthiazide 12.5 MG 1 tablet in the morning Orally daily; Duration: 30 days 10/10/2022 Active Celecoxib 200 MG 1 capsule with food Orally Once a day; Duration: 30 day(s) 06/10/2023 Active Omeprazole 40 MG 1 cap(s) orally once a day Active Vital Signs Blood pressure systolic 152 mm Hg 12/15/19 Blood pressure diastolic 90 mm Hg 025 Heart Rate 76 /min 12/14/2024 Height 63.25 in 12/14/2024 Weight 180.8 lbs 12/14/2024 BMI 31.77 kg/m2 12/14/2024 Encounters Encounter Location Date Provider Diagnosis [facility] 1210 [facility] 36 [facility] [address] [place] [phone] 12/14/2024 Gurjit Dc Essential hypertensi on I10 and Acute UTI N39.0 Assessments Encounter Date Diagnosis (ICD Code) Assessment Notes Treatment Notes Treatment Clinical Notes Section Notes 12/14/2024 Essential hypertension (ICD-10 - I10) 12/14/2024 Acute UTI (ICD-10 - N39.0) Plan Of Treatment Medication Medication Name Sig Start Date Stop Date Notes hydroCHLOROthiazide 12.5 MG 1 tablet in the morning Orally daily; Duration: 30 days 10/10/2022 Next Appt Details Follow Up: 4 Weeks, Reason: Provider Name:Gurjit Carlos er, 03/15/2025 01:15:00 PM, 12[address] [facility] 36 [facility], [address], [place], [phone], Progress Notes * PEPE PARKDOB: 3 (64 yo F)Acc No.[id number]:12/14/2024 Progress Notes Patient: PEPE RODRIGUEZ Provider: Gurjit Dc M.D. :1960 A ge:64 Y S ex:Female Date:12/14/2024 Address:[address], [place], [id number] Subjective: * Chief Complaints: * 1 . 4 months. 2. Needs labs & mammogram. * HPI: C ardiology: The pt is here for a check up on Hypertension and hypothyroidism. Pt states she has had a UTI but that has improved with antibiotics she had from the [facility]. Pt is not fasting. 64 year old female presents with c/o Dizziness o ccasional sensation of imbalance. Denies : Chest Pain. D enies : Short of Breath. * ROS: D ERMATOLOGY: no R chiquita. [...] Fibroid Uterus, Anemia, Menorrhagia 03-24-09, hysterectomy 04/2009, [facility] ER - URI 04/22/17. * Family History: F ather: 64 yrs, diagnosed with Diabetes, Heart Disease. M other: alive 79 yrs.?2 sister(s) . 3 son(s) , 1 daughter(s) . . Mother with CAD, [place]. Father had CAD and diabetes. * Social [...] Objective: * Vitals: W t: 180.8, Temp: 98.3, BP: 152/90, HR: 76, Nurse: JOSHUA, Ht: 63.25, Repeat BP: 146/90, BMI:31.77. * Examination: G eneral Examination: General [...] hypertension - I10 (Primary) 2 . A cute UTI - N39.0 ? Plan: * Treatment: 2. A cute UTI L AB: Urinalysis - Inhouse (Collection Date & Time - 12/14/2024) Value Reference Range C olor/Clarity yellow/clear * L euk Neg * N itrite Neg * U robili 16 * P rotein Neg * p H 6.5 * B lood Neg * S p. Gr. 1.020 * K etone Neg * B bruno Neg * G adriano Neg * Ashwini Buckley 12/14/2024 04 :12:55 PM EDT > Provider reviewed results while patient in office. * Procedure Codes: 8 1002 Urinalysis, no micro, 3077F SYST BP = 140 MM HG6 IT, 3080F DIAST BP = 90 MM HG * Follow Up: 4 Weeks * Images: Billing Information: * Visit Code: 18106 Office Visit, Est Pt., Level 4. * Procedure Codes: 65361 Urinalysis, no micro. 3077F SYST BP = 140 MM HG6 IT. 3080F DIAST BP = 90 MM HG. * Electronic signature of Gurjit Dc MD on 03/07/2025 at 10:53 AM EST Sign off status: Pending * Provider: Gurjit Dc M.D. Date: 0 12/14/2024 Generated for Patricioi ng/Monica/eTransmitting on: 1 05/07/2024 10:53 AM EST History and Physical Notes * HPI (History of Present Illness) Category Sub-Category Detail Notes Category Not es Cardiology Short of Breath Chest Pain Dizziness occasional sensation of imbalance Examination Category Sub-Category Detail Notes Category Not [...]
--- OUTSIDE RECORDS SUMMARY | 2025-01-11 08:30 | XMS_ITS ---
Author Organization [facility] Address [address] [place] [phone] Care Team Providers Care Owner Professional Engineer Name Role Phone Gurjit Dc Primary Care Provider Allergies Allergen (clinical drug ingredient) Drug/Non Drug Allergy documented on EMR Reaction Allergy Type Onset Date Status codeine Codeine Unknown Drug Allergy Active REASON FOR VISIT 4 weeks Medications Medication SIG (Take, Route, Frequency, Duration) Notes Start Date End Date Status Celecoxib 200 MG 1 capsule with food Orally Once a day; Duration: 30 day(s) 06/10/2023 Active Alendronate Sodium 35 MG 1 tab(s) Orally once a week; Duration: 90 days Active MiraLax 17 GM/SCOOP 1 scoop mixed with 8 ounces of fluid Orally Once a day; Duration: 30 day(s) 04/23/2024 Active Align 4 MG as directed Orally 04/23/2024 Active Citracal +D3 250-107-500 MG-MG-UNIT 2 tab(s) chewed 2 times a day (with meals); Duration: 30 day(s) 06/03/2020 Active Chlorthalidone 25 MG 1 tablet in the morning with food Orally daily; Duration: 30 days 01/11/2025 Active Omeprazole 40 MG 1 cap(s) orally once a day Active Cyclobenzaprine HCl 5 MG 1 -2tab(s) oral ly 3 times a day prn 08/27/2022 Not-Taking Ondansetron 4 MG 1 tablet on the tongue and allow to dissolve Orally three times a day as needed; Duration: 10 day(s) 02/11/2023 Not-Taking Pravastatin Sodium 20 MG 1 tablet Orally Once a day; Duration: 90 days Active Euthyrox 50 MCG 1 tab(s) orally once a day Active Lisinopril 10 MG 1 tablet Orally Once a day; Duration: 90 days Active Vital Signs Blood pressure systolic 140 mm Hg 01/12/20 25 Blood pressure diastolic 90 mm Hg 025 Heart Rate 67 /min 01/11/2025 Height 63.25 in 01/11/2025 Weight 180.4 lbs 01/11/2025 BMI 31.7 kg/m2 01/11/2025 Encounters Encounter Location Date Provider Diagnosis [facility] 1210 [facility] 36 [facility] [address] [place] [phone] 01/11/2025 Gurjit Dc Essential hypertensi on I10 and Localized edema R60.0 Assessments Encounter Date Diagnosis (ICD Code) Assessment Notes Treatment Notes Treatment Clinical Notes Section Notes 01/11/2025 Essential hypertension (ICD-10 - I10) 01/11/2025 Localized edema (ICD-10 - R60.0) Plan Of Treatment Medication Medication Name Sig Start Date Stop Date Notes Chlorthalidone 25 MG 1 tablet in the mor evaristo with food Orally daily; Duration: 30 days 01/11/2025 hydroCHLOROthiazide 12.5 MG 1 tablet in the morning Orally daily 10/10/2022 Next Appt Details Follow Up: 2 Months, Reason: Provider Name:Gurjit Carlos er, 03/15/2025 01:15:00 PM, 1210 [facility] 36 [facility], [address], [place], [phone], Progress Notes * PEPE PARKDOB: 3 (64 yo F)Acc No.[id number]:01/11/2025 Progress Notes Patient: VIVIANA RODRIGUEZLY Provider: Gurjit Dc M.D. :1960 A ge:64 Y S ex:Female Date:01/11/2025 Address:[address], [phone] Subjective: * Chief Complaints: * 1 . 4 weeks. * HPI: C ardiology: The pt is here for a follow-up on Hypertension. Pt states she has been taking the Hydrochlorothiazide and denies any side effects except she has been feeling a bit more tired. Pt is not fasting. Pt states she is still having issues with reflux and is taking the Omeprazole as directed. * ROS: D ERMATOLOGY: no R chiquita. [...] Anemia, Menorrhagia 03-24-09, hysterectomy 04/2009, [facility] ER - URI 04/22/17. * Family History: F ather: 64 yrs, diagnosed with Diabetes, Heart Disease. M other: alive 79 yrs.?2 sister(s) . 3 son(s) , 1 daughter(s) . . Mother with CAD, [place]. Father had CAD and diabetes. * Social [...] tablet Orally Once a day , Taking hydroCHLOROthiazide 12.5 MG Tablet 1 tablet in the morning Orally daily , Not- Taking Ondansetron 4 MG Tablet Disintegrating 1 tablet on the tongue and allow to dissolve Orally three times a day as needed , Not-Taking Cyclobenzaprine HCl 5 MG Tablet 1 -2tab(s) orally 3 times a day prn , Medication List reviewed and reconciled with the patient * Allergies: C odeine. Objective: * Vitals: W t: 180.4, Temp: 98.3, BP: 140/90, HR: 67, Nurse: JOSHUA, Ht: 63.25, Repeat BP: 144/80, BMI:31.7. * Examination: G eneral Examination: General Appearance: [...] ssential hypertension - I10 (Primary) 2 . L ocalized edema - R60.0? Plan: * Treatment: * Procedure Codes: 1 036F TOBACCO NON-USER, 3017F COLORECTAL CA SCREEN DOC REV * Preventive Medicine: Screening / Special Tests: C olonoscopy C ologuard: 01/14/24 , negative. * Follow Up: 2 Months * Images: Billing Information: * Visit Code: 16862 Office Visit, Est Pt., Level 3. * Procedure Codes: 1036F TOBACCO NON-USER. 3017F COLORECTAL CA SCREEN DOC REV. * Electronic signature of Gurjit Dc MD on 03/07/2025 at 10:54 AM EST Sign off status: Pending * Provider: Gurjit Dc M.D. Date: 0 01/11/2025 Generated for Dusty castrejon/Monica/eTlazarosmitting on: 1 05/07/2024 10:54 AM EST History and Physical Notes * Examination Category Sub-Category Detail Notes Category Not [...]
[2025-03-07 10:45] VITALS: BP 156/83; PULSE 82; O2SAT 96
[2025-03-07 10:48] VITALS: BP 156/83; PULSE 89; RESP 18; TEMP 36.8; O2SAT 99; BMI 30.9
[2025-03-07 10:56] LABS: Microscopic, Urine URINE MICROSCOPIC (MICROSCOPIC)
--- NOTE | 2025-03-07 10:56 | XR_ITS ---
PROCEDURE INFORMATION: Exam: XR Chest Exam date and time: 03/07/2025 11:30 AM Age: 64 years old Clinical indication: Shortness of breath TECHNIQUE: Imaging protocol: Radiologic exam of the chest. Views: 1 view. Portable upright chest x-ray. COMPARISON: 1. CR XR CHEST PORTABLE 01/06/2023 5:33 PM 2. CR XR CHEST 2V 09/06/2021 10:30 PM FINDINGS: Lungs: No airspace consolidation or nodules. The curvelinear scarring in the right lung base is unchanged. Pleural spaces: No pleural effusion. No pneumothorax. Heart/Mediastinum: No abnormalities. No cardiomegaly. No pulmonary vascular congestion. Bones/joints: No fractures or bone lesions. IMPRESSION: No acute findings in the chest. No interval changes.
--- NOTE | 2025-03-07 10:56 | CT_ITS ---
PROCEDURE INFORMATION: Exam: CT Abdomen And Pelvis With Contrast Exam date and time: 03/07/2025 11:25 AM Age: 64 years old Clinical indication: Abdominal pain; Additional info: R. Flank, ruq, epigastric and rlq pain TECHNIQUE: Imaging protocol: Computed tomography of the abdomen and pelvis with contrast. Radiation optimization: All CT scans at this facility use at least one of these dose optimization techniques: automated exposure control; mA and/or kV adjustment per patient size (includes targeted exams where dose is matched to clinical indication); or iterative reconstruction. Contrast material: ISOVUE; Contrast volume: 75 ml; Contrast route: IV; COMPARISON: 1. CT LUMBAR SPINE WO CON 02/23/2024 11:[address] ABDOMEN PELVIS W CON 04/04/2021 2:[address] ABDOMEN PELVIS W CON 02/23/2024 11:58 AM FINDINGS: Lungs: No consolidation, lung nodules, or pleural effusions. Liver: The liver has diffuse low density. No enhancing liver masses. Gallbladder and biliary ducts: Gallbladder is surgically absent. No biliary ductal dilatation. Pancreas: No masses. No ductal dilation. Spleen: No splenomegaly. No masses or surrounding fluid. Adrenal glands: No mass. Kidneys and ureters: No hydronephrosis, calcified stones, or masses. Stomach and bowel: No bowel wall thickening, intestinal masses, or abnormal luminal dilatation. Appendix: No evidence of appendicitis. No mass. Intraperitoneal space: An ill-defined mass in the central mesentery just inferior to the aortic bifurcation (axial series 3, image 72; coronal series 1001, image 30) measures 1.3 cm and has surrounding spiculated, spoke-like stranding of the mesentery. Vasculature: No abdominal aortic aneurysm. No other significant abnormalities. Lymph nodes: A few paula hepatis lymph nodes are unchanged and measure up to 1.1 cm in short axis diameter. One or 2 external iliac lymph nodes on the right measure 0.9 cm. 1 or more left internal iliac lymph nodes measure 1.2 cm in short axis diameter. A few celiac and aortocaval lymph nodes measure less than 1 cm. Two retrocrural lymph nodes measure 0.9 cm or less and having large 04/04/2021. Urinary bladder: No masses or asymmetric wall thickening. Reproductive: Uterus is surgically absent. No adnexal masses. Bones/joints: No acute fracture or bone lesions. Concentric disc bulge at L4-L5 causes mild spinal stenosis. Soft tissues: No masses or other abnormalities. IMPRESSION: 1. Ill-defined, central, 1.3 cm, mesenteric nodule is just inferior to the bifurcation of the aorta and has a surrounding spiculated fibrotic appearance. This is an interval change and is suspicious for neuroendocrine ( carcinoid ) tumor. DOTATATE PET-CT is recommended. 2. Paula hepatis, retroperitoneal, right external iliac, and left external iliac, and retropleural lymph nodes are borderline enlarged but are unchanged. 3. No other evidence of malignancy or metastatic disease. No other acute findings. 4. Hepatic steatosis. 5. Mild spinal stenosis at L4-L5.
--- OUTSIDE RECORDS SUMMARY | 2025-03-07 10:56 | XMS_ITS | Patient Health Record ---
Author Organization [facility] Address [address] [facility] [address] [place] [phone] Care Team Providers Care Gearman Name Role Phone Gurjit Dc Primary Care Provider Cathy Ramos Unavailable [phone] Allergies Allergen (clinical drug ingredient) Drug/Non Drug Allergy documented on EMR Reaction Allergy Type Onset Date Status codeine Codeine Unknown Drug Allergy Active Results Component Value Reference Range Notes Urinalysis - Inhouse Reviewed date:12/15/2024 09:23:34 AM Interpretation: Performing Lab: Notes/Report: Color/Clarity yellow/clear Leuk Neg Nitrite Neg Urobili 16 Protein Neg pH 6.5 Blood Neg Sp. Gr. 1.020 Ketone Neg Bili Neg Gluc Neg Mammogram Reviewed date:01/29/2025 03:41:41 PM Interpretation:Negative Performing Lab: Notes/Report: Negative result Negative P-Comprehensive Metabolic Pa navi (CMP) Reviewed date:08/13/2024 12:46:40 PM Interpretation:Normal Performing Lab: Notes/Report: CLIA: [id number] Jaciel Corrales MD, [employer] Supervisor [facility] , [place] [address] Test performed by [employer], [employer] Sodium 144 135-145 mmol/L Potassium 3.9 3.5-5.3 [...] as needed; Duration: 10 day(s) 02/11/2023 Not-Taking Lisinopril 10 MG Take 1 tablet by mouth once daily; Duration: 90 Active MiraLax 17 GM/SCOOP 1 scoop mixed [...] 1 tab(s) orally once a day Active Immunizations Vaccine Route Administration Date Status Comme jorge Fluzone Quad (6months&older) IM Intramuscular 02/12/2018 Administered COVID 19 Pfizer Unknown 10/26/2020 Administered Problems Problem Type SNOMED Code ICD Code Onset Dates Problem Status W/U Status Risk Notes Problem Essential hypertension (65257243) Essential hypertension (I10) Active confirmed Problem Osteopenia (136613262) Osteopenia (M85.80) Active confirmed Problem BMI 30+ - obesity (147275709) BMI 32.0-32.9,adult (Z68.32) Active confirmed Problem Breathing painful (52112723) Rib pain on left side (R07.81) Active confirmed Problem Hyperlipidemia (92191266) Hyperlipidemia, unspecified (E78.5) Active confirmed Problem Acquired hypothyroidism (799089520) Acquired hypothyroidism (E03.9) Active confirmed Problem Gastroesophageal reflux disease with esophagitis (disorder) (345633829) GERD with esophagitis (K21.0) Active confirmed Problem Abnormal gait (60149187) Imbalance (R26.89) Active confirmed Problem Raised antinuclear antibody (960020285) SHONDA positive (R76.8) Active confirmed Problem Fibrocystic breast changes (31158532) Fibrocystic breast disease (FCBD), unspecified laterality (N60.19) Active confirmed Problem Plantar nerve lesion (059549029) 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) Active confirmed Vital Signs Heart Rate 67 /min 01/11/2025 Blood pressure diastolic 90 mm Hg 01/11/2025 Height 63.25 in 01/11/2025 Blood pressure systolic 140 mm Hg 01/11/2025 Weight 180.4 lbs 01/11/2025 BMI 31.7 kg/m2 01/11/2025 Encounters Encounter Location Date Provider Diagnosis [facility] [address] [id number] 04/23/2024 Gurjit Dc Essential hypertensi on I10 ; Acquired hypothyroidism E03.9 and Lower abdominal pain R10.30 [facility] [address] [id number] 08/06/2024 Gurjit Dc Essential hypertensi on I10 ; Acquired hypothyroidism E03.9 ; SHONDA positive R76.8 ; Hyperlipidemia, unspecified E78.5 and BMI 32.0-32.9,adult Z68.32 [facility] [address] [facility] [address] [id number] 10/14/2024 Cathy Crowdy Bug bite with infect ion, subsequent encounter W57.XXXD and Erythema L53.9 [facility] [facility] [address] [id number] 12/14/2024 Gurjit Dc Essential hypertensi on I10 and Acute UTI N39.0 [facility] 1210 [facility] [address] [place] [id number] 01/11/2025 Gurjit Dc Essential hypertensi on I10 and Localized edema R60.0 [facility] 1210 [facility] [address] [place] [id number] 03/30/2024 Gurjit Dc Hyperlipidemia, unspecified E78.5 [facility] 1210 [facility] [address] [place] [id number] 08/05/2024 Gurjit Dc Osteopenia M85.80 an d Essential hypertension I10 [facility] 1210 [facility] [address] [place] [id number] 01/05/2025 Gurjit Dc Breast cancer screen ing Z12.31 [facility] [address] [place] [id number] 01/13/2025 J Nathanael Dc Osteopenia M85.80 Assessments Encounter Date Diagnosis (ICD Code) Assessment Notes Treatment Notes Treatment Clinical Notes Section Notes 03/30/2024 Hyperlipidemia, unspecified (ICD-10 - E78.5) 04/23/2024 [...] 32.0-32.9,adult (ICD-10 - Z68.32) Plan Of Treatment Next Appt Details Provider Name:Gurjit Huffman Terrance er, 03/15/2025 01:15:00 PM, [address], [address], [place], [place], [id number], Insurance Providers Payer Name Payer Address Payer Phone Subscriber Number Group Number Insured Name Patient Relationship to Insured Coverage Start Date Coverage End Date [employer] [facility] [address] [place], [place] [id number] PEPE PARK Self - patient is the insured Medical (General) History Medical History History ICD Code deaf Surgical History Surgery Date(Month/Year) EGD 04/28 hysterectomy abdominal 04/2009 cholecystectomy 02-12-11 Hospitalization History Reason Date(Month/Year) [facility] ER - URI 04/22/17 hysterectomy 04/2009 Fibroid Uterus, Anemia, Menorrhagia 03-24 [facility], Gastro infection 07/11/2007
--- NOTE | 2025-03-07 10:57 | ECG_ITS ---
APPROVED REPORT Exam: Resting ECG HR:76 bpm ECG Measurements Heart Rate 76 AXES MO 166 P 81 QRSd 91 QRS 86 QT 312 T 65 QTc 342 Conclusion SINUS RHYTHM NONSPECIFIC T-WAVE ABNORMALITY BORDERLINE ECG UNCONFIRMED REPORT Normal sinus rhythm. No ST elevation or depression. QTc normal at 342 Electronically signed by : JAZIEL SIMMONS, 03/07/2025 15:24:59
--- NOTE | 2025-03-07 10:58 | ED_ITS ---
Discharge Plan Disposition Patient Disposition: Home, Self-Care Prescriptions Prescriptions: New methocarbamol 500 mg tablet 500 mg PO Q8H PRN (Reason: muscle pain) Qty: 30 0RF lidocaine 5 % adhesive patch,medicated 1 patch topical DAILY Qty: 15 0RF Rx Instructions: leave on most painful area for up to 12 hrs No Action hydrochlorothiazide 12.5 mg capsule 12.5 mg PO DAILY calcium carbonate [Calcium 500] 500 mg calcium (1,250 mg) tablet,chewable 500 mg PO DAILY cephalexin 500 mg capsule 500 mg PO BID 7 Days Qty: 14 0RF mupirocin [Centany] 2 % ointment 1 applic topical TID Qty: 22 0RF Rx Instructions: apply to area as directed pravastatin 20 mg tablet See Rx Instructions .ROUTE .COMPLEX Qty: 90 0RF Dose Instruction: Take 1 tablet by mouth once daily Rx Instructions: Take 1 tablet by mouth once daily omeprazole 40 MG capsule,delayed release(DR/EC) 40 mg PO DAILY lisinopril 5 MG tablet 5 mg PO DAILY alendronate 35 MG tablet 35 mg PO DAILY levothyroxine 50 MCG tablet 50 mcg PO DAILY prednisone 20 mg tablet 40 mg PO BID 5 Days Qty: 20 0RF methocarbamol 750 mg tablet 750 mg PO Q8H PRN (Reason: pain) Qty: 20 0RF Referrals Follow up/Referrals: Letitia Dc MD [Primary Care Provider, Medical] - See instructions Activity Restrictions/Add. Instructions Additional Instructions/Restrictions: Your workup today shows a mildly enlarged lymph node versus mass within the abdomen they will need further workup. I encourage you to follow-up with Dr. Dc as you may need a pet scan in the future to further evaluate this nodule/as it could represent something called a mass carcinoid tumor. I encourage you to take Tylenol at home to help with your symptoms. I am prescribing you Robaxin, a muscle relaxer, as well as lidocaine patches to help with your symptoms. If you develop any new or worsening symptoms, such as uncontrolled pain, fever, rash in the area, or if you become concerned for your health for any reason, return to the emergency department for evaluation. Clinical Impressions Clinical Impression: Enlarged lymph node, Acute right flank pain Instructions Patient Instructions: DI for Acute Abdominal Pain Print Language Print Language: Moldovan Discharge ED Provider: Karsner,Demetrius General Adult HPI General Chief complaint: Abdominal Pain Stated complaint: Right side back and hip pain Time Seen by Provider: 03/07/25 10:48 Mode of Arrival: Wheelchair Source of Information: Patient and Spouse Description of Symptoms (Recalled from ER Triage Doc. by RN): pt reports r side pain that started this morning. stabbing pain. denies other symptoms. denies painful urination History of Present Illness HPI narrative: Verna Park is a 64-year-old female with a history of hearing impairment, hypertension, hyperlipidemia, hypothyroidism, hysterectomy, cholecystectomy, who presents to the emergency department for complaints of right flank pain rating to her right abdomen. Patient states that pain started this morning and she took Tylenol without relief. Patient denies any fever, nausea, vomiting or diarrhea or constipation. She describes the pain as sharp and constant. She has never had this type of pain before. The pain radiates to her right abdomen. She denies any dysuria, hematuria. She denies any alcohol use, tobacco use or drug use. Related Data Home Medications ?Medication ?Instructions ?Recorded ?Confirmed lisinopril 5 mg tablet 5 mg PO DAILY Supplement 05/0910/17/24 omeprazole 40 mg capsule,delayed 40 mg PO DAILY GERD 0 09/06/18 10/17/24 release alendronate 35 mg tablet 35 mg PO DAILY gout 04/04/21 10/17/24 levothyroxine 50 mcg tablet 50 mcg PO DAILY hypothyroi d 04/04/21 10/17/24 calcium carbonate (Calcium 500) 500 mg PO DAILY 10/17/24 hydrochlorothiazide 12.5 mg capsule 12.5 mg PO DAILY 0 06/18/23 10/17/24 Previous Rx's ?Medication ?Instructions ?Recorded pravastatin 20 mg tablet See Rx Instructions .Route 0 07/13/22 .COMPLEX #90 tabs methocarbamol 750 mg tablet 750 mg PO Q8H PRN pain #20 tabs 02/23/24 prednisone 20 mg tablet 40 mg (2 x 20 mg) PO BID 5 d ays 02/23/24 #20 tabs mupirocin 2 % topical ointment 1 applic topical TID #2 2 grams 10/06/24 (Centany) cephalexin 500 mg capsule 500 mg PO BID 7 days #14 cap s 10/17/24 lidocaine 5 % topical patch 1 patch topical DAILY #15 ea 03/07/25 methocarbamol 500 mg tablet 500 mg PO Q8H PRN muscle p ain #30 03/07/25 tabs Allergies Allergy/AdvReac Type Severity Reaction Status Date / Time codeine Allergy Intermediate I-RASH; Verified 10/17/24 10:36 NAUSEA/VOMITING chocolate flavor (From AdvReac Mild NA-NAUSEA/V Verified 10/17/24 10:36 CHOCOLATE (FOOD/DRUG)) OMITING From CHOCOLATE (FOOD/DRUG) AdvReac Mild NA-NAUSEA/V Uncoded 10/17/24 10:36 OMITING PFSH PFSH Disclaimer: The information contained in this section may have been updated after the patient was seen, as this information can be updated by other users. Medical History , EDUCATION TRAINER) Cellulitis Social History , EDUCATION TRAINER) Smoking Status: Never smoker second hand exposure: No alcohol intake: never current occupational status: other Travel in the last 8 weeks?: None housing: house caffeine: No Have you lived/traveled outside [place] in past 30 days?: No Contact w/someone who lives/traveled outside [place] past 30 days?: No Exposure to someone with infectious disease in past 14 days?: No Do you have a fever (greater than 100.4 F or 38 C)?: No Have you tested positive for COVID-19?: No Exposed to someone with COVID-19 in past 14 days?: No Do you have a sore throat?: No Do you have a cough?: No Do you have any weakness?: No Do you have any diarrhea?: No Are you experiencing any unusual bleeding?: No Do you have any muscle aches/pain?: No Do you have any abdominal pain?: No Are you experiencing loss of taste or smell?: No Other Medical History Have you received the Flu Vaccine for this season: No Have you received the Pneumonia Vaccine: No ROS Obtained: Yes Systems reviewed as appropriate & no additional complaints except as documented Physical Exam General General appearance: alert and in no apparent distress Head Head exam: atraumatic Eye Eye exam: Present normal appearance ENT ENT exam: Present normal external ear exam Neck Neck exam: Present full ROM Chest Chest inspection: Present symmetric chest wall rise Respiratory Respiratory exam: Present normal lung sounds bilaterally; Absent respiratory distress, wheezes or stridor Cardiovascular Cardiovascular exam: Present regular rate and normal rhythm Abdominal Exam Abdominal exam: Present soft, tenderness (Left upper quadrant, epigastric, right upper quadrant and right lower quadrant) and guarding (Epigastric and right upper quadrant); Absent distention, rebound or rigidity Extremities Exam Extremities exam: Present normal inspection Back Exam Back exam: Present normal inspection and CVA tenderness (R); Absent CVA tenderness (L) Neurological Exam Neurological exam: Present alert and oriented X3 Psychiatric Psychiatric exam: Present normal affect Skin Skin exam: Present warm and dry Medical Decision Making Medical Records Screening: Per USPSTF and CDC recommendations, given the prevalence of disease in our region, it is our hospital?s policy to screen for HIV and viral Hepatitis for all patients aged 18 and over and those with ongoing risk factors. Perry Inquiry Pt receiving controlled substance: No Vital Signs: 03/07/25 10:45 03/07/25 10:48 03/07/25 11:00 Temperature 98.2 F Temperature Source Oral Pulse Rate 82 72 Pulse Rate [Right] 89 Respiratory Rate 18 Blood Pressure 156/83 H 153/82 H Blood Pressure [Right Arm] 156/83 H Blood Pressure Mean [Right Arm] 107 02 Sat by Pulse Oximetry 96 99 98 Oxygen Delivery Method Room Air Room Air 03/07/25 12:00 03/07/25 13:31 Temperature 98.3 F Temperature Source Pulse Rate 68 68 Pulse Rate [Right] Respiratory Rate 18 Blood Pressure 125/72 125/72 Blood Pressure [Right Arm] Blood Pressure Mean [Right Arm] 02 Sat by Pulse Oximetry 97 Oxygen Delivery Method Room Air Lab Data Lab Results 03/07/25 10:45: Urine Color Yellow, Urine Appearance Clear, Urine pH 6.5, Ur Specific [place] <= 1.005, Urine Protein Negative, Urine Glucose (UA) Negative, Urine Ketones Negative, Urine Blood Negative, Urine Nitrate Negative, Urine Bilirubin Negative, Urine Urobilinogen 0.2, Ur Leukocyte Esterase Negative, Urine RBC None, Urine WBC None, Ur Squamous Epith Cells None, Urine Bacteria None 03/07/25 10:50: WBC 9.3, RBC 5.10, Hgb 16.0, Hct 45.1, MCV 88.4, MCH 31.4 H, M CHC 35.5 H, RDW 13.6, Plt Count 228, MPV 11.1 H, Neut % (Auto) 65.3, Lymph % (Auto) 26.9, [place] % (Auto) 5.6, Eos % (Auto) 1.5, Baso % (Auto) 0.5, Neut # (Auto) 6.0, Lymph # (Auto) 2.5, [place] # (Auto) 0.5, Eos # (Auto) 0.1, Baso # (Auto) 0.1, Sodium 141, Potassium 3.3 L, Chloride 96 L, Carbon Dioxide 34 H, Anion Gap 14.3, BUN 16, Creatinine 0.80, Estimated Creat Clear 75, Estimated GFR 73, Est GFR ( Amer) 88, Glucose 133 H, Lactate 1.8, Calcium 9.7, Total Bilirubin 0.7, AST 44 H, ALT 56, Alkaline Phosphatase 66, Troponin I < 0.01, C- Reactive Protein 4.2 H, Total Protein 8.1, Albumin 4.7, Globulin 3.4 H, Albumin/Globulin Ratio 1.4, Lipase 85, HCV Ab FARIDEH w/Rflx PCR Qn Negative, HIV Ag/Ab Combo Qual Negative 03/07/25 10:50 03/07/25 10:50 Orders (Tests/Meds): ED MEDICATIONS Discontinued Medications Generic Name Dose Route Start Last Admin Trade Name Freq PRN Reason Stop Dose Admin Iopamidol 75 ml 03/07/25 11:25 03/07/25 11:27 Iopamidol-370 (76%);100ml Bottle IV 03/07/25 11:26 75 ml ONCE ONE Administration Ketorolac Tromethamine 15 mg 03/07/25 10:56 03/07/25 11:24 Ketorolac 15mg/Ml Vial IV 03/07/25 10:57 15 mg ONCE ONE Administration Potassium Chloride 40 meq 03/07/25 11:16 03/07/25 11:24 Potassium Chloride 20meq Tab PO 03/07/25 11:17 40 meq ONCE ONE Administration Sodium Chloride 10 ml 03/07/25 11:25 03/07/25 11:27 Sodium Chloride 0.9% 10ml Syr (Rad Only) IV 03/07/25 11:26 10 ml ONCE ONE Administration ORDERS Category Date Time Status CT abdomen pelvis w con Stat Cat Scan 03/07/25 10:56 Completed CXR --portable [XR chest portable] Stat Exams 03/07/25 10:56 Completed CBC w/Auto Diff [Complete Blood Count Auto Diff] Stat Lab 03/07/25 10:50 Completed CMP [Comprehensive Metabolic Panel] Stat Lab 03/07/25 10:50 Completed CRP [C-Reactive Protein] Stat Lab 03/07/25 10:50 Completed HIV Combo Stat Lab 03/07/25 10:50 Completed Hepatitis C Ab Qual. W/ RFX Stat Lab 03/07/25 10:50 Completed Lactic Acid Stat Lab 03/07/25 10:50 Completed Lipase Stat Lab 03/07/25 10:50 Completed Troponin I Q3H Lab 03/07/25 14:00 Ordered Troponin I Q3H Lab 03/07/25 17:00 Ordered Troponin I Stat Lab 03/07/25 10:50 Completed Urinalysis-Acute [Urinalysis and Microscopic] Stat Lab 03/07/25 10:45 Completed ECG Data Tracing #1: I reviewed this ECG and interpreted as documented below: Normal sinus rhythm. No ST elevation or depression. QTc of 342 Medical Decision Narrative: Verna Park is a 64-year-old female with a history of hearing impairment, hypertension, hyperlipidemia, hypothyroidism, hysterectomy, cholecystectomy, who presents to the emergency department for complaints of right flank pain rating to her right abdomen. Patient states that pain started this morning and she took Tylenol without relief. Patient denies any fever, nausea, vomiting or diarrhea or constipation. She describes the pain as sharp and constant. She has never had this type of pain before. The pain radiates to her right abdomen. She denies any dysuria, hematuria. She denies any alcohol use, tobacco use or drug use. On arrival, patient is mildly hypertensive with blood pressure 156/83, heart rate within normal limits, afebrile, oxygen saturation 99% on room air. Physical exam, stated above, revealed an overall well appearing female who appears mildly uncomfortable but nontoxic. She has right-sided CVA tenderness, tenderness in the left upper quadrant, epigastric, right upper quadrant and right lower quadrant with mild guarding in the epigastric and right upper quadrant but abdomen is soft and not peritonitic. Cardiopulmonary Marbin reveals no wheezing, rales or rhonchi. No cardiac murmurs or rubs. Differential diagnosis includes, but is not limited to: Ureterolithiasis, pyelonephritis, ACS, pericarditis, pneumonia, gastritis, peptic ulcer disease, appendicitis, among others. The most morbid conditions were considered and workup was based on these. Workup in the emergency department included: CT Abdo pelvis with IV contrast, urinalysis, troponin, lipase, lactic acid, CMP, CBC with differential, CRP, chest x-ray, EKG. Patient was treated with 15 mg of IV Toradol. EKG was interpreted by me personally and showed normal sinus rhythm. No ST elevation or depression. No T wave inversions. QTc normal at 242 Laboratory studies are grossly unremarkable nonactionable. No leukocytosis, no anemia, platelets within normal limits, mildly low potassium at 3.3 (was replaced with 40 mill equivalents of potassium chloride orally), sodium 141, normal anion gap, no ANISA. Lactate normal at 1.8 mildly elevated AST of 44 but liver enzymes otherwise within normal limits and bilirubin normal at 0.7. Initial troponin less than 0.01. CRP mildly elevated at 4.2. Lipase normal at 85. Urinalysis without blood or evidence of infection. Chest x-ray interpreted by me personally. No focal consolidation, no pneumothorax, no widened mediastinum, no enlargement of the cardiac silhouette. Unremarkable chest x-ray. See radiology report for details. CT imaging was interpreted by me personally and I do not appreciate any acute findings within the abdomen or pelvis. Per radiology, there is an ill-defined, central, 1.3 cm mesenteric nodule is just inferior to the bifurcation of the aorta and has a surrounding speculated fibrotic appearance. This is an interval change and is suspicious for neuroendocrine ( carcinoid ) tumor. DOTATATE PET-CT is recommended. Paula hepatis, retroperitoneal, right external iliac, and left external iliac, and retrocrural lymph nodes are borderline enlarged but are unchanged. No other evidence of malignancy or metastatic disease. No other acute findings. Hepatic steatosis. Mild spinal stenosis at L4-L5. On reassessment, patient states that she has had near resolution of her symptoms. Her workup today is unremarkable for any acute pathology. She states that she is social follow-up with Dr. Dc on the of this month and I encouraged her to attend this appointment and explained the findings on her CT scan that could be concerning for carcinoid tumor and needs further workup. She and her both demonstrated understanding and were in agreement with this plan. She could possibly have a muscle strain as patient's states that she is very active at home and is constantly lifting things. Will prescribe Robaxin and lidocaine patches. Could also be early stages of shingles but there is no rash appreciated on my exam. I encouraged her to seek care if she starts to develop a rash in this area she would likely need to be treated for possible shingles if this happens. Return precautions were given. All questions were answered. She demonstrated understanding and was in agreement this plan. She was then discharged from the emergency department in stable condition. Critical Care Critical Care Time Critical Care Time: No
[2025-03-07 11:00] VITALS: BP 153/82; PULSE 72; O2SAT 98
[2025-03-07 11:06] LABS: Hematocrit 45.1 % (37.0-47.0); Hemoglobin 16.0 g/dL (12.2-16.2); Immature Granulocytes % 0.2 %; Mean Corpuscular HGB Conc 35.5 g/dL (31.8-35.4); Mean Corpuscular Hemoglobin 31.4 pg (27.0-31.2); Mean Corpuscular Volume 88.4 fl (81-99); Nucleated Red Blood Cells % 0 %; Platelet Count 228 K/mm3 (142-424); Red Blood Count 5.10 M/mm3 (4.20-5.40); Red Cell Distribution Width-SD 44.1 fL; White Blood Count 9.3 K/mm3 (4.8-10.8)
[2025-03-07 11:08] LABS: Albumin Level 4.7 g/dl (3.5-5.0); Chloride 96 mmol/L (98-107); Potassium 3.3 mmoL/L (3.5-5.1); Sodium 141 mmol/L (136-145)
[2025-03-07 11:11] LABS: Alanine Aminotransferase 56 U/L (12-78); Albumin/Globulin Ratio 1.4 (1.1-1.8); Alkaline Phosphatase 66 U/L (38-126); Anion Gap 14.3 mEq/L (5-15); Aspartate Amino Transferase 44 U/L (14-36); Bilirubin,Total 0.7 mg/dl (0.2-1.3); Blood Urea Nitrogen 16 mg/dl (7-17); Carbon Dioxide 34 mmol/L (22.0-30.0); Creatinine Clearance Estimated 75 mL/min (50-200); Creatinine,Serum 0.80 mg/dl (0.52-1.04); Estimated Glomerular Filt Rate 73 ml/min (>60); GFR (African American) 88 ML/MIN (>60); Globulin 3.4 g/dL (1.3-3.2); Lipase 85 U/L (23-300); Total Protein,Serum 8.1 g/dl (6.3-8.2)
[2025-03-07 11:12] LABS: Calcium 9.7 mg/dl (8.4-10.2); Glucose 133 mg/dl (74-100)
[2025-03-07 11:12] LABS: Bilirubin,Urine Negative (Negative); Color,Urine YELLOW (Yellow); Glucose,Urine (UA) Negative (Negative); Ketones,Urine Negative (Negative); Leukocyte Esterase,Urine Negative (Negative); PH,Urine 6.5 (5.0-8.5); Protein,Urine Negative (Negative); Specific Gravity, Urine <= 1.005 (1.005-1.030); Urobilinogen,Urine 0.2 EU/dl (0.2)
[2025-03-07] MEDS: KETOROLAC 15MG/ML VIAL 15 MG IV (11:24)
[2025-03-07] MEDS: POTASSIUM CHLORIDE 20MEQ TAB 40 MEQ PO (11:24)
[2025-03-07] MEDS: SODIUM CHLORIDE 0.9% 10ML SYR (RAD ONLY) 10 ML IV (11:27)
[2025-03-07] MEDS: IOPAMIDOL-370 (76%);100ML BOTTLE 75 ML IV (11:27)
[2025-03-07 11:51] LABS: Troponin I < 0.01 ng/ml (0.00-0.034)
[2025-03-07 12:00] VITALS: BP 125/72; PULSE 68; O2SAT 97
[2025-03-07 12:08] LABS: Hepatitis C Ab Qual. W/ RFX NEGATIVE (Negative)
[2025-03-07 12:19] LABS: C-Reactive Protein 4.2 mg/L (0-4)
[2025-03-07 13:31] VITALS: BP 125/72; PULSE 68; RESP 18; TEMP 36.8; O2SAT 96
== END 2025-03-07 13:39 | disposition home or self-care (01) ==
PROVIDERS: Emergency Provider Student in an Organized Health Care Education/Training Program; PCP Family Medicine
DX: R10.A1 Flank pain, right side (principal); R59.9 Enlarged lymph nodes, unspecified
CPT/HCPCS: 71045; 74177; 80053; 81001; 83605; 83690; 84484; 85025; 86140; 86803; 87389; 93005; 96374; 99285; J1885; Q9967